=== PATIENT | female | born 1945 | race Caucasian/White ===

== ENCOUNTER 2017-11-16 09:18 | Outpatient (CLI) | payer MEDICARE, BC ==
--- NOTE | 2017-11-16 11:25 | RAD ---
UPPER GI: History: Hiatal hernia, reflux, angiopathic pulmonary fibrosis. FINDINGS: Swallowing was grossly normal. There is unobstructed flow of contrast through the esophagus into the stomach, duodenum and proximal duodenum. A large hiatal hernia is present. No mass or diverticulum is identified. Tertiary contractions are seen in the esophagus. IMPRESSION: 1. Large hiatal hernia. 2. Presbyesophagus. POS: [facility]
== END 2017-11-16 09:19 | disposition home or self-care (01) ==
LOC: RAD 09:18
PROVIDERS: ATTEND Internal Medicine Gastroenterology
DX: K21.9 Gastro-esophageal reflux disease without esophagitis (principal); F45.8 Other somatoform disorders; K44.9 Diaphragmatic hernia without obstruction or gangrene; J84.10 Pulmonary fibrosis, unspecified; K22.8 Other specified diseases of esophagus
CPT/HCPCS: 74247

== ENCOUNTER 2018-02-07 10:46 | Day surgery (SDC) | payer MEDICARE, BC ==
[2018-02-06 17:58] VITALS: BMI 24.7
[2018-02-07] MEDS ORDERED: Midazolam HCl 2 mg/2 ml Vial ONE (13:12)
--- NOTE | 2018-02-07 14:29 | OP ---
DATE OF PROCEDURE: 02/07/2018 PROCEDURE: Esophagogastroduodenoscopy with biopsy. PREOPERATIVE DIAGNOSES: 1. Blood loss anemia. 2. Melena. 3. History of reflux and large hiatal hernia. 4. History of pulmonary fibrosis on OFEV. POSTOPERATIVE DIAGNOSES: 1. Examination to second portion of duodenum. 2. No evidence of active bleeding in the upper digestive tract. 3. Presbyesophagus esophagus. 4. Large hiatal hernia extending from 30 cm to 37 cm from the incisors. 5. Several superficial linear erosions in the hiatal hernia, biopsied. A small amount of heme was a ssociated with the erosions. 6. Grossly normal stomach. 7. Normal duodenum. 8. No evidence of gastric or duodenal ulcers. PROCEDURE IN DETAIL: Written informed consent was obtained. The patient was brought to the endoscop y suite. Total intravenous anesthesia was provided by Dr. Peter Cain and associates. The patient was placed in the left lateral decubitus position. A bite block was inserted into the mouth. A Pent ax video diagnostic gastroscope was introduced into the oral cavity and the esophagus was carefully i ntubated. The gastroscope was advanced under direct visualization to the second portion of the duode num. Endoscopic findings revealed presbyesophagus due to a large hiatal hernia which was measured at 30 cm to 37 cm from the incisors. Several superficial linear ulcers were noted along few folds in t he hiatal hernia. Biopsies were obtained. There was evidence of a small amount of heme staining ass ociated with erosions. The stomach was then entered and carefully examined. This included a retrofl exed view of the cardia and fundus which again demonstrated the large hiatal hernia. There was no ev idence of overt gastritis or gastric ulcer. The duodenum from the bulb to the second portion was the n inspected and appeared grossly normal. No ulcer was seen. The stomach was then decompressed as th e endoscope was removed from the patient. She was transferred to the day stay surgery area for post- procedure monitoring. There were no immediate complications. RECOMMENDATIONS: 1. Await biopsy results. 2. Ask the patient to call me in 1 week for biopsy results. 3. Continue pantoprazole 40 mg daily. 4. Continue to hold aspirin for now. 5. We will speak to the patient about performing a small bowel capsule endoscopy in the next 7-10 da ys to evaluate for any source of bleeding in the small intestine. 6. Follow up with me after completion of the capsule endoscopy.
== END 2018-02-07 15:10 | disposition home or self-care (01) ==
LOC: SDC 10:46
PROVIDERS: ATTEND Internal Medicine Gastroenterology
PROC: 0DB68ZX Excision of Stomach, Via Natural or Artificial Opening Endoscopic, Diagnostic (ICD-10-PCS; principal; 2018-02-07)
DX: K44.9 Diaphragmatic hernia without obstruction or gangrene (principal); K22.8 Other specified diseases of esophagus; D50.0 Iron deficiency anemia secondary to blood loss (chronic); K21.9 Gastro-esophageal reflux disease without esophagitis; Z88.1 Allergy status to other antibiotic agents; Z91.041 Radiographic dye allergy status; Z91.040 Latex allergy status; Z98.890 Other specified postprocedural states
CPT/HCPCS: 88305; J2250

== ENCOUNTER 2018-03-07 14:14 | Outpatient (CLI) | payer MEDICARE, BC ==
--- NOTE | 2018-03-09 16:21 | PFT ---
PATIENT HISTORY: HEIGHT: 62 IN WEIGHT: 143 SMOKER: NO HOW LONG: PACKS PER DAY PRODUCTIVE COUGH: LUNG DISEASE: PHYSICIAN INTERPRETATION FINAL REPORT: Product Blending Supervisor comments patient and good effort and cooperation FVC 1.58 (58%), FEV1 1.37 (72%), FEV1/FVC 0.87. TLC 2.15 (46%), RV 0.71 (36%). Diffusion 5.19 (30%). There is a symmetric reduction to the FEV1 and the FVC, suggestive of a restrictive profile. Total lung capacity and residual volume are reduced, confirming the volume restriction. Diffusion capacity is a severely impaired. IMPRESSION: These pulmonary function studies are most consistent with moderately severe restrictive lung disease with severe reduction in gas exchange. Product Blending Supervisor: GABE Wire Twister: GABE ALFARO
== END 2018-03-07 14:15 | disposition home or self-care (01) ==
LOC: CP 14:14
PROVIDERS: ATTEND Internal Medicine Critical Care Medicine
DX: J84.112 Idiopathic pulmonary fibrosis (principal); J84.9 Interstitial pulmonary disease, unspecified
CPT/HCPCS: 94010; 94727; 94729

== ENCOUNTER 2018-03-21 15:35 | Outpatient (CLI) | payer MEDICARE, BC | END 2018-03-21 15:36 | disposition home or self-care (01) | LOC: BICMAMMO 15:35 | PROVIDERS: ATTEND Internal Medicine | DX: Z12.31 Encounter for screening mammogram for malignant neoplasm of breast (principal) | CPT/HCPCS: 77063; 77067 ==

== ENCOUNTER 2018-04-26 08:58 | Outpatient (CLI) | payer MEDICARE, BC ==
--- NOTE | 2018-04-27 13:04 | PFT ---
PATIENT HISTORY: HEIGHT: 62 IN WEIGHT: 137 SMOKER: HOW LONG: PACKS PER DAY PRODUCTIVE COUGH: LUNG DISEASE: PHYSICIAN INTERPRETATION FINAL REPORT: Sheet Metal Duct Installer Helper comments patient and good effort and cooperation PFT data: FVC 1.73 (63%), FEV1 1.39 (73%), FEV1/FVC 0.81. TLC 2.02 (43%), FRC .88 (32%), RV 0.71 (36%). Diffusion 1.89 (11%). There is a reduction, there is asymmetric reduction to both the FEV1 and the FVC , suggestive of a restrictive profile. Volume restriction was confirmed with the reduced lung volumes. Diffusion capacity is severely impaired. IMPRESSION: Overall, these pulmonary function studies are consistent with moderate restrictive lung disease with a severe reduction in gas exchange. This is consistent with the interstitial lung disease suspected on the reason for these studies. Sheet Metal Duct Installer Helper: GABE Job Estimator: GABE ALFARO
== END 2018-04-26 08:59 | disposition home or self-care (01) ==
LOC: CP 08:58
PROVIDERS: ATTEND Internal Medicine Critical Care Medicine
DX: J84.9 Interstitial pulmonary disease, unspecified (principal)
CPT/HCPCS: 94010; 94727; 94729

== ENCOUNTER 2018-05-10 12:18 | Outpatient (CLI) | payer MEDICARE, BC | END 2018-05-10 12:19 | disposition home or self-care (01) | LOC: BICRAD 12:18 | PROVIDERS: ATTEND Internal Medicine | DX: M54.5 Low back pain (principal); M47.896 Other spondylosis, lumbar region; M47.894 Other spondylosis, thoracic region | CPT/HCPCS: 72072; 72100 ==

== ENCOUNTER 2018-05-18 14:02 | Observation (INO) | payer MEDICARE, BC ==
[2018-05-18 14:44] LABS: #Basophils 0.1 thou/uL (0.0-0.2); #Eosinphils 0.3 thou/uL (0.0-0.7); #Lymphocytes 1.4 thou/uL (1.20-3.40); #Monocytes 0.5 thou/uL (0.11-0.59); %Basophils 1.1 % (0.0-1.0); %Eosinophils 3.7 % (0.0-10.0); %Lymphocytes 14.6 % (21.0-51.0); %Monocytes 5.8 % (0.0-10.0); %Neutrophils 74.8 % (42.0-75.0); Anisocytosis SLIGHT = 6-15 cells (100X) (0-5/hpf); Hypochromia SLIGHT = 6-15 cells (100X) (0-5/hpf); Large Platelets SLIGHT; MDiff Complete? YES; Mean Corpuscular Volume 74.4 fL (78.0-98.0); Mean Platelet Volume 6.3 fL (7.4-10.4); Microcytosis SLIGHT = 6-15 cells (100X) (0-5/hpf); PLT Morphology Comment Appears Adequate; Platelet Count 342 thou/uL (130-400); Red Blood Cell (RBC) Count 4.35 mill/uL (4.20-5.40); White Blood Cell (WBC) Count 9.3 thou/uL (4.8-10.8)
[2018-05-18 14:54] LABS: ALT (SGPT) 16 U/L (8-55); AST (SGOT) 25 U/L (5-34); Albumin 3.4 g/dL (3.4-4.8); Alkaline Phosphatase 108 U/L (40-150); Anion Gap 13 mmol/L (10-20); BUN (Urea Nitrogen) 15 mg/dL (9.8-20.1); Bilirubin, Total 0.3 mg/dL (0.2-1.2); CK (CPK) 78 U/L (29-168); CKMB 0.9 ng/mL (0-6.6); Calc. Creatinine Clearance 0 mL/min (70-130); Calcium 9.4 mg/dL (7.8-10.44); Carbon Dioxide 24 mmol/L (23-31); Chloride 104 mmol/L (98-107); Estimated GFR-MDRD Greater than 90; Globulin 3.4 g/dL (2.4-3.5); Glucose 106 mg/dL (83-110); Lipase 6 U/L (8-78); Potassium 4.1 mmol/L (3.5-5.1); Protein, Total 6.8 g/dL (6.0-8.3); Sodium 137 mmol/L (136-145); Troponin I Less than 0.010 ng/mL (< 0.028)
--- NOTE | 2018-05-18 15:00 | RAD ---
RADIOGRAPH OF CHEST SINGLE VIEW: Comparison: 10-03-16 History: Chest pain. FINDINGS: There remains diffuse interstitial prominence of the lungs bilaterally. There is slight blunting of e ach lateral costophrenic sulcus. Cardiomediastinal silhouette is prominent, similar appearing. No add itional significant interval change. IMPRESSION: Redemonstration of diffuse interstitial opacities throughout each lung which may be on the basis of c hronic interstitial lung process. Superimposed acute entities, including edema, are not excluded. Cli nical correlation. Imaging follow up may be obtained as necessary. POS: [facility]
--- NOTE | 2018-05-18 15:56 | CT ---
CT HEAD NONCONTRAST: History: Headache. Paresthesia. Comparison: 09-13-15 FINDINGS: There is no evidence of acute intracranial hemorrhage or infarct. Ventricles appear normal in size, s hape, and position. There is no chronic ischemic small vessel disease within the periventricular whit e matter of each cerebral hemisphere. No mass effect or shift of midline structures. IMPRESSION: Chronic type findings are stable. No acute intracranial abnormalities are demonstrated on noncontrast CT head. POS: [facility]
[2018-05-18] MEDS ORDERED: Ondansetron ODT 4 MG TAB PO PRN (19:03)
[2018-05-18] MEDS ORDERED: cloNIDine 0.1 MG TAB PO PRN (19:03)
[2018-05-18] MEDS ORDERED: hydrALAZINE 20 MG/ML VIAL SLOW IVP PRN (19:03)
[2018-05-18] MEDS ORDERED: Acetaminophen 500 MG TAB PO PRN (19:03)
[2018-05-18] MEDS ORDERED: Ondansetron HCl/PF 4 MG/2 ML Vial IVP PRN (19:03)
[2018-05-18 19:12] VITALS: BMI 25.5
[2018-05-18] MEDS ORDERED: Temazepam 15 MG CAP PO SCH (21:00)
[2018-05-18] MEDS ORDERED: Simvastatin 5 MG TAB PO SCH (21:00)
[2018-05-18] MEDS ORDERED: Ipratropium Bromide 0.06% Nasal Inhaler 15ml EA NARE SCH (21:00)
[2018-05-18] MEDS: Famotidine 20 MG TAB PO SCH (21:15)
[2018-05-18] MEDS: Lactinex Tablet PO SCH (21:17)
--- NOTE | 2018-05-18 23:15 | ULT ---
CAROTID DOPPLER: 05/18/18 Ultrasound and doppler studies performed in the extracranial carotid arteries. Color doppler with spe ctral analysis and velocity recordings obtained. INDICATIONS: TIA. Ultrasound images show mild plaque bilaterally. The velocity recordings are within normal range measu ring up to 79 cm/s systolic in both internal carotid arteries. Vertebral arteries show antegrade flow . Incidentally noted are prominent cervical lymph nodes. IMPRESSION: 1. Mild echogenic plaque. 2. No evidence of significant stenosis identified in either internal carotid artery. 3. Evidence of cervical adenopathy. Recommend clinical correlation. Consider CT neck as indicate d. POS: [facility]
[2018-05-18] MEDS ORDERED: Montelukast Sodium 10 mg Tablet PO SCH (23:45)
--- NOTE | 2018-05-19 01:49 | HP ---
DATE OF ADMISSION: 05/18/2018 PRIMARY CARE PROVIDER: Erika Estrada MD CHIEF COMPLAINT: Numbness of the right hand and right lower extremity. HISTORY OF PRESENT ILLNESS: This is a 72-year-old female, who presented to [place] complaining of paresthesias and numbness of the right hand, as well as right fo ot and right calf region. The patient states over the last 48 hours, she noticed tingling in the rig ht jaw and chin area intermittently. The patient states she had been cleaning her house after a rece nt visit from her son, at which point, the symptoms began while she was changing bed linens. The pat ient denied any unilateral weakness, difficulty with speech, visual disturbance, difficulty speaking, or swallowing. The patient has denied any recent trauma, injury, headache, fever, or new medication s. The patient does state she was placed on Singulair in the last several months, but no other vega e to her chronic medication regimen. The patient does admit to taking aspirin 81 mg daily. The arabella ent states she is right-hand dominant. Denies any recent travel history, submersion, high altitude e xposure, or family members with similar symptoms. The patient does relate a significant history of i diopathic pulmonary fibrosis followed by Pulmonology Service. The patient does state that her mother had complications and succumbed to a cerebral aneurysm at age 54. In the emergency room, the patien t underwent general evaluation including CT imaging of the brain showing no acute intracranial proces s. Metabolic screening showed no acute process other than a chronic microcytic anemia. The patient received aspirin 324 mg and was referred to the Hospitalist Service for evaluation. PAST MEDICAL HISTORY: 1. Hypothyroidism. 2. Gastroesophageal reflux disease. 3. Idiopathic pulmonary fibrosis. 4. Nonalcoholic fatty liver disease. 5. History of hiatal hernia. 6. Degenerative joint disease. 7. Right rotator cuff tear. PAST SURGICAL HISTORY: 1. Status post appendectomy. 2. Status post hysterectomy. 3. Status post carpal tunnel release. 4. Status post endoscopy. 5. Status post left thoracoscopy for wedge biopsy resection. CURRENT MEDICATIONS: 1. Vitamin C 500 mg p.o. daily. 2. Enteric-coated aspirin 81 mg, 1 tab p.o. daily. 3. Vitamin C, E, and zinc 1 capsule p.o. daily. 4. Calcium carbonate 1 tablet p.o. daily. 5. Lasix 20 mg p.o. q.a.m. 6. Ipratropium bromide 2 sprays in each naris b.i.d. 7. Iron 28 mg half a tab p.o. daily. 8. Lactobacillus 1 capsule p.o. b.i.d. 9. Levothyroxine 50 mcg p.o. daily. 10. Toprol-XL 50 mg p.o. daily. 11. OFEV 100 mg p.o. b.i.d. 12. Protonix 40 mg p.o. daily. 13. Livalo 1 mg half a tab p.o. at bedtime. 14. Restoril 15 mg p.o. at bedtime. 15. Coenzyme Q10 100 mg p.o. daily. ALLERGIES: ZITHROMAX, IODINE, LATEX. FAMILY HISTORY: Mother of complications of cerebral aneurysm. Father of complications of congestive heart failure in his 70s. Brother of prostate cancer. SOCIAL HISTORY: No current alcohol, tobacco, or illicit drug use. Retired. Functional of all activ ities of daily living. Resides in [place], [place]. REVIEW OF SYSTEMS: The following complete review of systems was negative, unless otherwise mentioned in the HPI or below: Constitutional: Weight loss or gain, abil ity to conduct usual activities. Skin: Rash, itching. Eyes: Double vision, pain. ENT/Mouth: Nos e bleeding, neck stiffness, pain, tenderness. Cardiovascular: Palpitations, dyspnea on exertion, or thopnea. Respiratory: Shortness of breath, wheezing, cough, hemoptysis, fever, or night sweats. Ga strointestinal: Poor appetite, abdominal pain, heartburn, nausea, vomiting, constipation, or diarrhea. Genitourinary: Urgency, frequency, dysuria, nocturia. Musculoskeletal: Pain, swelling. Neurologic/Psychiatric: Anxiety, depression. Allergy/Immunologi c: Skin rash, bleeding tendency. PHYSICAL EXAMINATION: VITAL SIGNS: Currently, blood pressure 146/70, pulse 88, respiratory rate 22, temperature 97.8 degre es Fahrenheit, O2 saturation 92% on room air. GENERAL APPEARANCE: This is a 72-year-old female, alert and oriented x3, pleasant, convers ant, in no acute distress. HEENT: Pupils are equal, round, and reactive to light and accommodation. Extraocular muscles are in tact. No scleral icterus. No conjunctival injection. Nares patent. OP is clear. Teeth in good re pair. NECK: Supple. No cervical adenopathy, no thyromegaly, no carotid bruits, no JVD appreciated. Cervi clovis spine with full active and passive range of motion. No meningeal signs appreciated. CHEST: Coarse breath sounds in bilateral lung torres. CARDIOVASCULAR: S1, S2 without noted murmur, rub, or gallop. ABDOMEN: Rounded, soft, nontender, nondistended. Bowel sounds are positive in all four quadrants. No hepatosplenomegaly, no abdominal bruits. No rebound or guarding appreciated. EXTREMITIES: Warm and dry with fair turgor. No clubbing, cyanosis, or asymmetric edema appreciated. Pulses are palpable distally at the dorsalis pedis, posterior tibial, and popliteal arteries bilate rally. Capillary refill is less than 2 seconds. NEUROLOGIC: Cranial nerves II-XII are grossly intact. No focal or lateralizing signs appreciated. Right-hand dominant. PERTINENT LABORATORY AND X-RAY FINDINGS: Complete metabolic profile within normal limits. CBC showe d a white blood cell count of 9.3, hemoglobin 10, hematocrit 32, MCV 74, platelet count 342 with norm al differential. Portable chest x-ray dated 05/18/2018 showed diffuse interstitial opacities consist ent with pulmonary fibrosis. CT of the brain without contrast dated 05/18/2018 showed chronic change s without acute process. EKG dated 05/18/2018 by my interpretation shows sinus mechanism with heart rates in the 80s. Attenuated R-waves noted in the precordial leads. Normal axis. T-wave inversion in leads II and F. ASSESSMENT AND PLAN: 1. Transient ischemic attack. The patient will be observed on the Stroke Unit. We will proceed wit h MRI imaging of the brain to further delineate cerebral anatomy and rule out focal area of infarct. No current deficit noted on clinical exam. Check carotid Doppler study and continue aspirin 81 mg d aily. Check fasting lipid profile in the a.m. 2. Hypertension. Resume metoprolol XL 50 mg daily. Continue serial blood pressure monitoring. 3. Idiopathic pulmonary fibrosis. Continue general pulmonary supportive measures. No oxygen requir ement currently. 4. Hypothyroidism. Resume levothyroxine 50 mcg p.o. daily. 5. Hyperlipidemia. Check fasting lipid profile in the a.m. Continue Livalo daily. 6. Chronic microcytic anemia. We will continue iron replacement. No current evidence to suggest ac [place] blood loss. Repeat CBC in the a.m. 7. Prophylaxis. Sequential compression devices while in bed. Pepcid 20 mg p.o. b.i.d. 8. Code status is FULL. Surrogate medical decision maker is patient's son.
[2018-05-19 05:33] LABS: Anion Gap 9 mmol/L (10-20); BUN (Urea Nitrogen) 10 mg/dL (9.8-20.1); Calc. Creatinine Clearance 88 mL/min (70-130); Calcium 9.2 mg/dL (7.8-10.44); Carbon Dioxide 28 mmol/L (23-31); Cardiac Risk 3.2 (Less than 4.5); Chloride 104 mmol/L (98-107); Cholesterol 108 mg/dl (< 200 Desired); Estimated GFR-MDRD Greater than 90; Glucose 93 mg/dL (83-110); HDL Cholesterol 34 mg/dL (>60 Neg Risk); Iron 25 ug/dL (50-170); LDL Cholesterol, Calculated 52 mg/dL; Potassium 4.3 mmol/L (3.5-5.1); Sodium 137 mmol/L (136-145); Triglycerides 109 mg/dL (Less than 150)
[2018-05-19] MEDS ORDERED: Levothyroxine Sodium 50 MCG TAB PO SCH (06:00)
[2018-05-19 06:07] LABS: Band 4 % (5-11); Eosinophils 2 % (0-10); Hemoglobin 10.1 g/dL (12.0-16.0); Lymphocytes 13 % (21-51); MDiff Complete? YES; Mean Corpuscular HGB CONC 31.5 g/dL (32.0-36.0); Mean Corpuscular Hemoglobin 24.5 pg (27.0-31.0); Mean Corpuscular Volume 77.7 fL (78.0-98.0); Monocytes 5 % (0-10); Neutrophil 76 % (42-75); Platelet Count 331 thou/uL (130-400); RBC Distribution Width 16.4 % (11.5-14.5); Red Blood Cell (RBC) Count 4.14 mill/uL (4.20-5.40); White Blood Cell (WBC) Count 7.1 thou/uL (4.8-10.8)
[2018-05-19] MEDS: Lactinex Tablet PO SCH (08:40)
[2018-05-19] MEDS: Furosemide 20 MG TAB PO SCH ×2 (08:41→10:09)
[2018-05-19] MEDS ORDERED: Ubidecarenone 50 MG CAP PO SCH (09:00)
[2018-05-19] MEDS ORDERED: Aspirin 81 mg Enteric Coated Tablet PO SCH (09:00)
[2018-05-19] MEDS ORDERED: Vit A,C & E/Lutein/Minerals Tablet PO SCH (09:00)
[2018-05-19] MEDS ORDERED: Calcium Carbonate + Vit D 1 TAB PO SCH (09:00)
[2018-05-19] MEDS ORDERED: IRON HEME POLYP PO SCH (09:00)
[2018-05-19] MEDS ORDERED: NINTEDANIB ESYLATE 150 MG PO SCH (09:00)
[2018-05-19] MEDS ORDERED: Saccharomyces boulardii 250 MG CAP PO SCH (09:00)
[2018-05-19] MEDS ORDERED: Pantoprazole 40 MG GRANULES PACKET PO SCH (09:00)
[2018-05-19] MEDS ORDERED: Ascorbic Acid 500 mg Chewable Tablet PO SCH (09:00)
[2018-05-19] MEDS ORDERED: IRON POLYSACCH PO SCH (09:00)
[2018-05-19] MEDS: Famotidine 20 MG TAB PO SCH (10:10)
--- NOTE | 2018-05-19 10:50 | MRI ---
BRAIN MRI WITH AND WITHOUT CONTRAST: Date: 05/19/18 COMPARISON: 01/04/14. TECHNIQUE: Brain MRI is performed with and without intravenous Gadolinium administration. Multisequential, multi planar imaging is performed. FINDINGS: No hemorrhage on the axial gradient echo sequence. No parenchymal mass, mass effect, or midline shift. Age-appropriate atrophy. Cortical euceda-white asim er differentiation preserved. Ventricles and sulci are patent and symmetric. Central arterial flow-voids are maintained. Absent restricted diffusion. Stable FLAIR white matter hyperintensities due to chronic small vessel ischemic change. Mild mucosal thickening of the paranasal sinuses. Central arterial flow-voids are maintained. Absent restricted diffusion. Bilateral ocular lens implants are noted. Calvarium has a normal T1 marrow signal intensity. Midline brain parenchymal structures are unremarka ble. No pathologic enhancement of the brain parenchyma. IMPRESSION: 1. Absent restricted diffusion. No acute infarct. 2. Age-appropriate atrophy. 3. Chronic small vessel ischemic changes of white matter. POS: [facility]
[2018-05-19 12:00] VITALS: BP 137/77; TEMP 98.6
--- NOTE | 2018-05-19 13:05 | DIS ---
DISCHARGE DIAGNOSES: 1. Paresthesias, etiology unclear. 2. Hypertension, stable. 3. Idiopathic pulmonary fibrosis, chronic and stable. 4. Hypothyroidism, stable. 5. Hyperlipidemia. 6. Chronic microcytic anemia with iron supplementation. 7. Cervical adenopathy. CONSULTATIONS: None. PERTINENT LABORATORY AND X-RAY FINDINGS: Complete metabolic profile within normal limits. Troponin I negative x1. Total cholesterol 108, triglycerides 109, HDL 34, LDL 52. CBC showed a hemoglobin of 10, hematocrit 32, MCV ranging between 74-78. Portable chest x-ray dated 05/18/2018 showed diffuse interstitial opacities consistent with idiopathi c pulmonary fibrosis history. CT of the brain without contrast dated 05/18/2018 showed no acute intr acranial process. Chronic ischemic white matter changes noted. Carotid Doppler study dated 05/18/20 18 showed mild echogenic plaques without focal stenosis. Cervical adenopathy noted. MRI of the brai n dated 05/19/2018 showed no acute intracranial process. Chronic small vessel ischemic changes noted . HOSPITAL COURSE: The patient was observed and on the Stroke Unit after initially presenting with rig ht-sided paresthesias and concern for TIA/CVA. The patient underwent CT and MRI imaging of the brain showing no evidence of acute infarct. Screening metabolic survey was essentially unremarkable excep t for a chronic microcytic anemia. Telemetry monitoring showed a sinus mechanism without evidence of acute arrhythmia or dysrhythmia. The patient remained essentially clinically stable throughout the hospital course. The patient was noted with intermittent elevated temperature which resolved prior t o discharge. The patient was also noted with mild cervical adenopathy incidentally noted on carotid Doppler study with current recommendations for general observation and follow up with a primary care provider. Overall, patient did remain clinically stable, as stated previously. I have examined the patient at the time of discharge and discussed pertinent follow up instructions and neurologic testin g. The patient overall verbalizes understanding and agreement and ready for discharge on 05/19/2018. DISCHARGE MEDICATIONS: 1. Vitamin C 500 mg 1 tab p.o. daily. 2. Enteric-coated aspirin 81 mg 1 tab p.o. daily. 3. Vitamin C, E, zinc and copper 1 tablet p.o. daily. 4. Calcium carbonate 1 tablet p.o. daily. 5. Lasix 20 mg p.o. daily. 6. Ipratropium bromide 2 sprays in each naris b.i.d. 7. Feosol 28 mg half a tab p.o. daily. 8. Lactobacillus 1 capsule p.o. b.i.d. 9. Levothyroxine 50 mcg p.o. daily. 10. Metoprolol XL 50 mg p.o. daily. 11. Singulair 10 mg p.o. at bedtime. 12. Ofev 100 mg p.o. b.i.d. 13. Protonix 40 mg p.o. daily. 14. Livalo 0.5 mg p.o. at bedtime. 15. Florastor 250 mg p.o. b.i.d. 16. Restoril 15 mg p.o. at bedtime. 17. Coenzyme Q10 100 mg p.o. daily. FOLLOWUP: The patient will follow up with her primary care provider, Dr. Erika Estrada within 7 days o f discharge. The patient may follow up with Dr. Vipul Cueto with Pulmonology Service and to call tn s office for appointment time and date. CONDITION ON DISCHARGE: Stable. ACTIVITY: Ad arnie. DIET: Heart healthy. CODE STATUS: Full. DISPOSITION: Home on 05/19/2018.
[2018-05-19] MEDS ORDERED: Montelukast Sodium 10 mg Tablet PO SCH (21:00)
== END 2018-05-19 13:15 | disposition home or self-care (01) ==
LOC: SCSER 14:02 → 2SE 16:18
PROVIDERS: ADMIT Family Medicine; ATTEND Family Medicine
DX: R20.0 Anesthesia of skin (principal); E03.9 Hypothyroidism, unspecified; K21.9 Gastro-esophageal reflux disease without esophagitis; J84.112 Idiopathic pulmonary fibrosis; K76.0 Fatty (change of) liver, not elsewhere classified; M19.90 Unspecified osteoarthritis, unspecified site; R59.0 Localized enlarged lymph nodes; D50.9 Iron deficiency anemia, unspecified; Z79.82 Long term (current) use of aspirin; Z79.899 Other long term (current) drug therapy; Z91.041 Radiographic dye allergy status; Z91.040 Latex allergy status; Z88.8 Allergy status to other drugs, medicaments and biological substances
CPT/HCPCS: 70450; 70553; 71045; 80048; 80053; 80061; 82550; 82553; 83540; 83690; 84484; 85007; 85025; 85027; 93005; 93880; 99285; G0378; 36415

== ENCOUNTER 2018-07-09 18:24 | Emergency (ER) | payer MEDICARE, BC ==
[2018-07-09 19:11] LABS: Anion Gap 15 mmol/L (10-20); BUN (Urea Nitrogen) 15 mg/dL (9.8-20.1); CK (CPK) 30 U/L (29-168); Calc. Creatinine Clearance 0 mL/min (70-130); Calcium 9.8 mg/dL (7.8-10.44); Carbon Dioxide 26 mmol/L (23-31); Chloride 101 mmol/L (98-107); Estimated GFR-MDRD Greater than 90; Glucose 97 mg/dL (83-110); Potassium 4.3 mmol/L (3.5-5.1); Sodium 138 mmol/L (136-145)
[2018-07-09 19:13] LABS: CKMB 0.5 ng/mL (0-6.6); Troponin I Less than 0.010 ng/mL (< 0.028)
[2018-07-09 19:14] LABS: #Basophils 0.1 thou/uL (0.0-0.2); #Eosinphils 0.4 thou/uL (0.0-0.7); #Lymphocytes 1.9 thou/uL (1.20-3.40); #Monocytes 0.5 thou/uL (0.11-0.59); #Neutrophils 6.6 thou/uL (1.40-6.50); %Basophils 1.1 % (0.0-1.0); %Eosinophils 3.8 % (0.0-10.0); %Lymphocytes 20.1 % (21.0-51.0); %Monocytes 4.9 % (0.0-10.0); %Neutrophils 70.1 % (42.0-75.0); Anisocytosis SLIGHT = 6-15 cells (100X) (0-5/hpf); Hemoglobin 10.5 g/dL (12.0-16.0); Hypochromia SLIGHT = 6-15 cells (100X) (0-5/hpf); MDiff Complete? YES; Mean Corpuscular HGB CONC 31.6 g/dL (32.0-36.0); Mean Corpuscular Hemoglobin 23.3 pg (27.0-31.0); Mean Corpuscular Volume 73.7 fL (78.0-98.0); Mean Platelet Volume 6.6 fL (7.4-10.4); Microcytosis SLIGHT = 6-15 cells (100X) (0-5/hpf); Platelet Count 391 thou/uL (130-400); RBC Distribution Width 15.9 % (11.5-14.5); Red Blood Cell (RBC) Count 4.51 mill/uL (4.20-5.40); White Blood Cell (WBC) Count 9.4 thou/uL (4.8-10.8)
--- NOTE | 2018-07-09 20:37 | RAD ---
PORTABLE CHEST: HISTORY: Dyspnea. COMPARISON: 05/18/2018 FINDINGS: Diffuse interstitial thickening seen throughout both lungs, similar to the prior exam. Findings sugg est a chronic interstitial process. There is mild cardiomegaly. There is evidence of a diaphragmati c hernia. The lung findings appear stable when compared to the prior exam. POS: [facility]
[2018-07-09 21:20] LABS: ALT (SGPT) 16 U/L (8-55); AST (SGOT) 25 U/L (5-34); Albumin 3.4 g/dL (3.4-4.8); Alkaline Phosphatase 124 U/L (40-150); Bilirubin, Direct 0.1 mg/dL (0.1-0.3); Bilirubin, Total 0.3 mg/dL (0.2-1.2); Protein, Total 7.3 g/dL (6.0-8.3)
--- NOTE | 2018-07-12 14:59 | EKG ---
Test Reason : Blood Pressure : / mmHG Vent. Rate : 091 BPM Atrial Rate : 091 BPM P-R Int : 132 ms QRS Dur : 078 ms QT Int : 340 ms P-R-T Axes : 019 000 005 degrees QTc Int : 418 ms Normal sinus rhythm Possible Left atrial enlargement Possible Inferior infarct , age undetermined Anterior infarct , age undetermined Abnormal ECG Confirmed by HOMER JAMES DO ([id number]), editor & co founder VENU SINGLETON ([id number]) on 07/12/2018 2:59:02 PM Referred By: Confirmed By:HOMER JAMES DO
== END 2018-07-09 21:45 | disposition home or self-care (01) ==
LOC: SCSER 18:24
DX: I10 Essential (primary) hypertension (principal); K21.9 Gastro-esophageal reflux disease without esophagitis; E03.9 Hypothyroidism, unspecified; E78.5 Hyperlipidemia, unspecified; Z79.899 Other long term (current) drug therapy; Z79.82 Long term (current) use of aspirin
CPT/HCPCS: 71045; 80048; 80076; 82553; 84484; 85025; 93005; 94760

== ENCOUNTER 2018-08-30 10:45 | Outpatient (CLI) | payer MEDICARE, BC ==
--- NOTE | 2018-08-30 12:19 | RAD ---
LUMBAR SPINE SERIES FOUR VIEWS WITH FLEXION AND EXTENSION: History: Back pain. FINDINGS: The bones are diffusely demineralized. Vertebral bodies maintain normal height. There is marked disc narrowing at L2-3. There is a grade I spondylolisthesis of L5 on S1 with moderate degenerative facet changes of the lower spine. I do not see any change in the listhesis between the flexion and extensio n. IMPRESSION: Arthritic changes of the spine as described above. POS: [facility]
== END 2018-08-30 10:46 | disposition home or self-care (01) ==
LOC: TBSIIMAG 10:45
PROVIDERS: ATTEND Surgery
DX: M47.26 Other spondylosis with radiculopathy, lumbar region (principal)
CPT/HCPCS: 72110

== ENCOUNTER 2018-09-11 12:22 | Outpatient (CLI) | payer MEDICARE, BC ==
--- NOTE | 2018-09-11 15:23 | MRI ---
MRI OF THE CERVICAL SPINE WITHOUT CONTRAST 09/11/18 COMPARISON: None. HISTORY: Numbness and tingling in both hand and fingers. Cervical radiculopathy. TECHNIQUE: Multiplanar and multisequence MR images were obtained in a cervical spine without contrast. FINDINGS: Generalized disc desiccation is seen. The vertebral bodies demonstrate normal height without fracture or subluxation. The visualized cord demonstrates normal signal throughout. The craniocervical junction is unremarkabl e. The prevertebral and paraspinal soft tissues are unremarkable. C-3: Unremarkable. C3-4: A minimal disc osteophyte complex is seen. Moderate bilateral posterior facet arthrosis. C4-5: A moderate disc osteophyte complex is associated with a superimposed moderate central protrusio n. Mild bilateral posterior facet arthrosis. Moderate central canal stenosis. No significant neural f oraminal stenosis. C5-6: A moderate disc osteophyte complex is seen. No posterior facet arthrosis. Moderate to severe ce ntral canal stenosis. Moderate to severe bilateral neural foraminal stenosis. C6-7: A moderate disc osteophyte complex is seen. No posterior facet arthrosis. Moderate to severe ce ntral canal stenosis. Moderate to severe bilateral neural foraminal stenosis. C7-T1: Unremarkable. IMPRESSION: Degenerative changes of the cervical spine as above. POS: [facility]
== END 2018-09-11 12:23 | disposition home or self-care (01) ==
LOC: SCSMRI 12:22
PROVIDERS: ATTEND Surgery
DX: M47.22 Other spondylosis with radiculopathy, cervical region (principal); M54.2 Cervicalgia
CPT/HCPCS: 72141

== ENCOUNTER 2018-10-30 15:32 | Outpatient (CLI) | payer MEDICARE, BC ==
--- NOTE | 2018-10-30 17:15 | RAD ---
CHEST 2 VIEWS: HISTORY: Dyspnea. COMPARISON: Chest radiograph 07/09/2018. FINDINGS: Diffuse increased peripheral interstitial markings are similar to slightly worsened. This suggests p ulmonary fibrosis. There is an air fluid level to the left of midline in the mediastinum suggesting a large sliding hiatal hernia. IMPRESSION: 1. Findings suggesting pulmonary fibrosis. 2. Likely a large sliding hiatal hernia. POS: [facility]
== END 2018-10-30 15:33 | disposition home or self-care (01) ==
LOC: RAD 15:32
PROVIDERS: ATTEND Internal Medicine Critical Care Medicine
DX: R06.00 Dyspnea, unspecified (principal)
CPT/HCPCS: 71046

== ENCOUNTER 2018-12-11 12:49 | Inpatient (IN) | payer MEDICARE, BC ==
[2018-12-11 14:21] LABS: Bilirubin Negative (Negative); Blood, Urine Negative (Negative); Clarity CLEAR (Clear); Glucose, Urine (Dipstick) Negative (Negative); Leukocyte Trace (Negative); Nitrite Negative (Negative); Protein, Urine (Dipstick) Negative (Neg-Trace); Specific Gravity, Urine 1.007 (1.002-1.036); Urobilinogen 0.2 mg/dL (0.2-1.0); pH, Urine 6.5 (5.0-9.0)
[2018-12-11 14:27] LABS: Bacteria/HPF None Seen HPF (None Seen); Hyaline Casts/LPF 0-3 HYALINE CAST LPF (0-3 Hyaline); RBC/HPF 0-3 HPF (0-3); Squamous Epithelial 0-3 HPF (0-3); WBC/HPF 0-3 HPF (0-3)
--- NOTE | 2018-12-11 14:48 | CT ---
CT BRAIN NONCONTRAST: DATE: 12-11-18 TIME: 1:46 P.M. HISTORY: 73-year-old female status post near syncope. FINDINGS: There is no midline shift or any other mass effect. There is no evidence of acute intracranial hemor rhage, large cortical infarct, obstructive hydrocephalus, or extraaxial fluid collection. The calvar ium is intact. IMPRESSION: No acute intracranial findings. marlee POS: [facility]
--- NOTE | 2018-12-11 14:49 | RAD ---
CHEST ONE VIEW: Indication: Near syncopal episode at home. Comparison: 10-30-18 FINDINGS: The chronic interstitial prominence of bronchiectasis is stable. Large hiatal hernia is similar appea ring. No pleural effusion or pneumothorax is evident. Osseous structures are appearing. IMPRESSION: 1. Stable chronic lung changes. 2. Stable moderate hiatal hernia. 3. No definite acute abnormality. POS: [facility]
[2018-12-11 15:18] LABS: #Basophils 0.1 thou/uL (0.0-0.2); #Eosinphils 0.1 thou/uL (0.0-0.7); #Lymphocytes 0.9 thou/uL (1.20-3.40); #Monocytes 0.3 thou/uL (0.11-0.59); #Neutrophils 5.6 thou/uL (1.40-6.50); %Basophils 0.8 % (0.0-1.0); %Eosinophils 1.8 % (0.0-10.0); %Lymphocytes 13.2 % (21.0-51.0); %Monocytes 4.4 % (0.0-10.0); %Neutrophils 79.8 % (42.0-75.0); Hemoglobin 11.1 g/dL (12.0-16.0); Mean Corpuscular HGB CONC 30.7 g/dL (32.0-36.0); Mean Corpuscular Hemoglobin 25.3 pg (27.0-31.0); Mean Corpuscular Volume 82.6 fL (78.0-98.0); Mean Platelet Volume 7.8 fL (7.4-10.4); Platelet Count 346 thou/uL (130-400); RBC Distribution Width 15.8 % (11.5-14.5); Red Blood Cell (RBC) Count 4.37 mill/uL (4.20-5.40)
[2018-12-11 15:43] LABS: ALT (SGPT) 9 U/L (8-55); AST (SGOT) 21 U/L (5-34); Albumin 3.5 g/dL (3.4-4.8); Alkaline Phosphatase 79 U/L (40-150); Anion Gap 15 mmol/L (10-20); BUN (Urea Nitrogen) 11 mg/dL (9.8-20.1); Bilirubin, Total 0.2 mg/dL (0.2-1.2); Calc. Creatinine Clearance 0 mL/min (70-130); Calcium 9.7 mg/dL (7.8-10.44); Carbon Dioxide 22 mmol/L (23-31); Chloride 105 mmol/L (98-107); Estimated GFR-MDRD Greater than 90; Globulin 3.7 g/dL (2.4-3.5); Glucose 89 mg/dL (83-110); Potassium 4.3 mmol/L (3.5-5.1); Protein, Total 7.2 g/dL (6.0-8.3); Sodium 138 mmol/L (136-145)
[2018-12-11 18:41] LABS: CKMB 1.2 ng/mL (0-6.6)
[2018-12-11 21:56] LABS: CKMB 0.9 ng/mL (0-6.6)
[2018-12-12 02:24] LABS: CKMB 0.9 ng/mL (0-6.6)
[2018-12-12] MEDS ORDERED: Ondansetron PF 4 MG/2 ML Vial IVP PRN (07:35)
[2018-12-12] MEDS ORDERED: Bisacodyl 10 MG SUPP PR PRN (07:35)
[2018-12-12] MEDS ORDERED: Cepastat Lozenges 1 LOZ PO PRN (07:35)
[2018-12-12] MEDS ORDERED: Sodium Chloride 0.65% Nasal 44 ML BOT EA NARE PRN (07:35)
[2018-12-12] MEDS ORDERED: hydrALAZINE 20 MG/ML VIAL SLOW IVP PRN (07:35)
[2018-12-12] MEDS ORDERED: Diabetic Tussin 200 MG/10 ML UDCUP PO PRN (07:35)
[2018-12-12] MEDS ORDERED: Ondansetron ODT 4 MG TAB PO PRN (07:35)
[2018-12-12] MEDS ORDERED: Acetaminophen 325 MG TAB PO PRN (07:35)
[2018-12-12] MEDS ORDERED: Calcium Carbonate 500 MG ChewTAB PO PRN (07:35)
[2018-12-12] MEDS ORDERED: Senokot S 8.6-50 MG TAB PO PRN (07:35)
[2018-12-12] MEDS ORDERED: Eucerin (Mineral Oil/Petrolatum,White) 30 gm Jar TOP PRN (07:35)
[2018-12-12] MEDS ORDERED: Artificial Tears 18 DROP/0.9 ML EA EYE PRN (07:35)
[2018-12-12] MEDS ORDERED: Loperamide HCl 2 MG CAP PO PRN (07:35)
[2018-12-12] MEDS ORDERED: Loratadine 10 MG TAB PO PRN (07:35)
[2018-12-12 08:37] LABS: Cardiac Risk 2.6 (Less than 4.5)
[2018-12-12] MEDS ORDERED: Famotidine 20 MG TAB PO SCH (09:00)
[2018-12-12] MEDS: Aspirin Chewable 81 MG TAB PO SCH (10:37)
--- NOTE | 2018-12-12 11:20 | CON ---
DATE OF CONSULTATION: HISTORY OF PRESENT ILLNESS: A 73-year-old female, end-stage pulmonary fibrosis, sees Dr. Cueto. She presented to the ER with symptoms of near-syncope, lightheaded, impaired vision. She had a pulmonary function test done 04/26/2018, almost 8-10 months ago, which showed a diffusing capacity of only 11% because of severe pulmonary fibrosis. She is on low-flow O2 24 hours a day. She denies any chest pain, chills, sweats, hemoptysis, sputum is relatively clear. On most days, she can barely walk even 20 feet without getting markedly short of breath. I understand she is going to be moving to an independent living area in [place] in the next several weeks. Denies any palpitation, nausea, vomiting. PAST MEDICAL HISTORY: Pulmonary fibrosis, reflux, DJD, hypothyroidism. PREVIOUS SURGERIES: Appendix, hysterectomy, carpal tunnel, biopsy, thoracoscopy. HOME MEDICATIONS: Include 1. CQ-10. 2. . 3. Ofev 1 tablet twice a day. 4. Protonix 40. 5. Toprol-XL 50. 6. Singulair 10. 7. Synthroid 50. 8. Lasix 20. 9. Nose spray. 10. Aspirin. 11. Ascorbic acid. ALLERGIES: Z-URI, IODINE, AND LATEX. SOCIAL HISTORY: Unremarkable. No alcohol, tobacco abuse. FAMILY HISTORY: Unremarkable. REVIEW OF SYSTEMS: Otherwise 10-point negative. PHYSICAL EXAMINATION: VITAL SIGNS: Blood pressure is 156/78, sats are 95% on 2 L, respirations 18, temperature 97. CHEST: Extensive crackles bilateral. CARDIAC: Normal S1 and S2. No gallops. ABDOMEN: No masses. X-ray shows pulmonary fibrosis. White count 7000, H and H 11 and 36. Lytes are normal. Troponin is borderline elevated. CT brain shows normal findings. IMPRESSION: 1. Near-syncope, rule out orthostatic hypotension. 2. End-stage pulmonary fibrosis. 3. Major anxiety. PLAN: Continue present treatment. Notify Dr. Cueto, check blood pressure sitting and standing. Brief course of steroids while in the hospital. Consultation note, 70 minutes, 50% direct patient care. Job ID: [id number]
--- NOTE | 2018-12-12 12:41 | HP ---
PRIMARY CARE PHYSICIAN: Erika Estrada MD REASON FOR ADMISSION: Near syncope. HISTORY OF PRESENT ILLNESS: A 73-year-old female, who has underlying idiopathic pulmonary fibrosis, on home oxygen therapy, who was brought to emergency room for evaluation of near syncope. The patient reports that for last 2 to 3 days, she was having lot of stress. She normally lives at home, but she is planning to go to assisted living facility in other town, and for that reason, she was little bit stressed out. Yesterday morning, the patient was seated in the chair and she felt lightheaded as if she is going to pass out. She did not have any spinning sensation. She did not have any fall. She did not completely lose her consciousness. At that time, she did not have any palpitation or chest pain. She did not have any orthopnea, PND, or leg swelling. She denies any calf tenderness. The patient ambulates with a walker at home. She is using oxygen all the time. She denies any fever or chills. She denies any UTI symptoms. She denies any constipation, diarrhea, melena, or hematochezia. She denies any headache, focal motor or sensory symptoms. When she came to emergency room, at that time she was hemodynamically stable. She did not have any abnormal finding on routine blood test. Troponin was only in indeterminate range. Her electrocardiogram was unremarkable and she did not have any chest pain. In the emergency room, CT brain did not show any acute process and chest x-ray showed chronic pulmonary changes. The patient is being admitted for observation. REVIEW OF SYSTEMS: CONSTITUTIONAL: Negative for weight loss or gain, ability to conduct usual activities. SKIN: Negative for rash, itching. EYES: Negative for double vision, pain. ENT/MOUTH: Negative for nose bleeding, neck stiffness, pain, tenderness. CARDIOVASCULAR: Negative for palpitations, dyspnea on exertion, orthopnea. RESPIRATORY: Negative for shortness of breath, wheezing, cough, hemoptysis, fever or night sweats. GASTROINTESTINAL: Negative for poor appetite, abdominal pain, heartburn, nausea , vomiting, constipation, or diarrhea. GENITOURINARY: Negative for urgency, frequency, dysuria, nocturia. MUSCULOSKELETAL: Negative for pain, swelling. NEUROLOGIC/PSYCHIATRIC: Negative for anxiety, depression. ALLERGY/IMMUNOLOGIC: Negative for skin rash, bleeding tendency. Please see my HPI for pertinent positive and negative. All other review of systems reviewed and negative except as mentioned in HPI. PAST MEDICAL HISTORY: Idiopathic pulmonary fibrosis, gastroesophageal reflux disease, hypothyroidism, nonalcoholic fatty liver disease, hiatal hernia, and degenerative joint disease. PAST SURGICAL HISTORY: Right rotator cuff repair, appendicectomy, hysterectomy, carpal tunnel release, endoscopy, and left thoracoscopy with wedge biopsy of the lung. PAST PSYCHIATRY HISTORY: Anxiety and depression ALLERGIES: AZITHROMYCIN, IODINE, AND LATEX. CURRENT HOME MEDICATIONS: 1. Vitamin C 500 mg daily. 2. Aspirin 81 mg daily. 3. Multivitamin 1 tablet daily. 4. Calcium carbonate 1 tablet daily. 5. Lasix 20 mg p.o. daily. 6. Iron 28 mg p.o. daily. 7. Lactobacillus 1 capsule b.i.d. 8. Synthroid 50 mcg daily. 9. Toprol-XL 50 mg daily. 10. Ofev 100 mg p.o. b.i.d. 11. Protonix 40 mg p.o. daily. 12. Livalo 1 mg p.o. at bedtime. 13. Restoril 15 mg p.o. at bedtime p.r.n. 14. Coenzyme Q10 100 mg p.o. daily. FAMILY HISTORY: Mother from complication of cerebral aneurysm. Father from complication of congestive heart failure in his 70s. Brother of prostate cancer. SOCIAL HISTORY: The patient lives in [place] in [facility]. No history of tobacco, alcohol, or illicit drug abuse. She is able to ambulate with walker. She is able to do all routine activities of life by herself. She is using oxygen 24 /7. EMERGENCY ROOM COURSE: The patient is given IV fluid and 1 liter NS. PHYSICAL EXAMINATION: VITAL SIGNS: On arrival, blood pressure 147/79, pulse 97, respiratory rate 22, temperature 97.8, saturation 96% on 2 L oxygen, and weight 52.2 kg. GENERAL: The patient is currently alert and awake. No obvious acute distress. HEENT: Head, normocephalic and atraumatic. Eyes, pupils round and reactive to light. Extraocular muscle intact. ENT, oropharynx within normal limits. Moist mucous membranes. No oral lesion. No pharyngeal erythema. No exudate. NECK: Supple. No JVD. No thyromegaly. No carotid bruit. LUNGS: Bilateral scattered Velcro type of rales noted. No wheeze. No accessory muscles of respiration. CARDIAC: S1 and S2 regular. No murmur. No gallop. No rub. ABDOMEN: Soft. Bowel sounds present. Nontender. Nondistended. No organomegaly. No mass. No suprapubic tenderness. BACK: Unremarkable. No CVA tenderness. EXTREMITIES: Upper extremities, passive movement of all joints are normal. Lower extremities, no edema. Good distal pulsation. SKIN: No skin rash. HEMATOLOGICAL SYSTEM: No lymphadenopathy. PSYCHIATRIC: Normal affect. NEUROLOGIC: Nonfocal examination. SIGNIFICANT LABORATORY DATA: EKG is showing sinus tachycardia and left atrial enlargement. Chest x-ray is showing chronic pulmonary fibrosis. CBC: WBC 7.0, hemoglobin 11.1, and platelet 346. BMP: Sodium 138, potassium 4.3, chloride 105, carbon dioxide 25, BUN 11, creatinine 0.60, and calcium 9.7. LFT: AST 21, ALT 9, alkaline phosphatase 79, and albumin 3.5. CK-MB 1.2. Troponin 0.080, then 0.068, and then 0.078. LDL 48. Urinalysis normal. CT brain based on my review, no acute intracranial process. ASSESSMENT AND PLAN: 1. Dizziness. We will rule out orthostatic vitals, suspecting pulmonary hypertension from interstitial lung disease. We will check echocardiography. She has elevated troponin and that is why we will obtain echocardiography as well as we will monitor on telemetry floor. Orthostatic vitals will be checked and we will monitor on telemetry floor. 2. Idiopathic pulmonary fibrosis. The patient is requesting Pulmonary consultation. We will put Pulmonary consultation. The patient will continue Ofev 100 mg p.o. b.i.d. Further management, we will defer to tool sharpener. 3. Hypothyroidism. We will continue the patient's home dose of levothyroxine. 4. Hypertension. We will continue the patient's Toprol-XL as per home dosage. 5. Gastroesophageal reflux disease. We will continue Protonix/Pepcid 20 mg p.o. b.i.d. 6. Protein-calorie malnutrition. The patient will be given nutritional supplement. 7. Deep vein thrombosis prophylaxis not needed because we are expecting discharge in 24 hours. 8. Gastrointestinal prophylaxis, Protonix 40 mg p.o. daily. CODE STATUS: The patient is a DNR. This was confirmed with the patient. She does not want any kind of resuscitation or intubation in case of cardiopulmonary arrest. Based on her request, we are changing the code status to DNR. Job ID: [id number] MTDD
[2018-12-12] MEDS ORDERED: Gabapentin 100 MG CAP PO SCH (15:00)
[2018-12-12] MEDS ORDERED: Ubidecarenone 50 MG CAP PO SCH (15:00)
[2018-12-12 16:23] LABS: Bilirubin Negative (Negative); Blood, Urine Trace (Negative); Clarity CLEAR (Clear); Glucose, Urine (Dipstick) Negative (Negative); Leukocyte Negative (Negative); Nitrite Negative (Negative); Protein, Urine (Dipstick) Trace mg/dL (Neg-Trace); Specific Gravity, Urine 1.016 (1.002-1.036); Urobilinogen 0.2 mg/dL (0.2-1.0)
[2018-12-12 16:25] LABS: Bacteria/HPF None Seen HPF (None Seen); Hyaline Casts/LPF 0-3 HYALINE CAST LPF (0-3 Hyaline); Squamous Epithelial 0-3 HPF (0-3); WBC/HPF 0-3 HPF (0-3)
[2018-12-12] MEDS ORDERED: ALPRAZolam 0.25 MG TAB PO PRN (16:26)
[2018-12-12] MEDS: Mometasone/Formoterol 120 PUFF INHALER INH SCH (18:30)
[2018-12-12] MEDS: Saccharomyces boulardii 250 MG CAP PO SCH ×2 (20:23→21:06)
[2018-12-12] MEDS: Gabapentin 100 MG CAP PO SCH ×3 (20:23→22:02)
[2018-12-12] MEDS: Temazepam 15 MG CAP PO SCH (20:23)
[2018-12-12] MEDS: Montelukast Sodium 10 mg Tablet PO SCH ×2 (20:23→21:09)
[2018-12-12] MEDS: Simvastatin 5 MG TAB PO SCH (21:30)
[2018-12-13] MEDS: Levothyroxine Sodium 50 MCG TAB PO SCH (05:19)
[2018-12-13] MEDS: Mometasone/Formoterol 120 PUFF INHALER INH SCH ×2 (06:40→18:50)
[2018-12-13 06:51] LABS: Anion Gap 15 mmol/L (10-20); BUN (Urea Nitrogen) 8 mg/dL (9.8-20.1); Calc. Creatinine Clearance 74 mL/min (70-130); Calcium 10.5 mg/dL (7.8-10.44); Carbon Dioxide 25 mmol/L (23-31); Chloride 99 mmol/L (98-107); Estimated GFR-MDRD Greater than 90; Glucose 108 mg/dL (83-110); Potassium 4.5 mmol/L (3.5-5.1); Sodium 134 mmol/L (136-145)
[2018-12-13 06:54] LABS: #Lymphocytes 0.8 thou/uL (1.20-3.40); #Monocytes 0.3 thou/uL (0.11-0.59); #Neutrophils 3.8 thou/uL (1.40-6.50); %Basophils 0.4 % (0.0-1.0); %Eosinophils 0.1 % (0.0-10.0); %Lymphocytes 16.8 % (21.0-51.0); %Monocytes 5.7 % (0.0-10.0); Hemoglobin 11.8 g/dL (12.0-16.0); Mean Corpuscular Hemoglobin 24.4 pg (27.0-31.0); Mean Corpuscular Volume 81.3 fL (78.0-98.0); Mean Platelet Volume 7.8 fL (7.4-10.4); Platelet Count 390 thou/uL (130-400); RBC Distribution Width 15.6 % (11.5-14.5); Red Blood Cell (RBC) Count 4.82 mill/uL (4.20-5.40); White Blood Cell (WBC) Count 4.9 thou/uL (4.8-10.8)
[2018-12-13] MEDS ORDERED: Sodium Chloride 0.9% 10 ML ONE (08:32)
[2018-12-13] MEDS ORDERED: Furosemide 20 MG TAB PO SCH (09:00)
[2018-12-13] MEDS: Gabapentin 100 MG CAP PO SCH ×2 (10:21→20:03)
[2018-12-13] MEDS: Saccharomyces boulardii 250 MG CAP PO SCH ×2 (10:22→20:05)
[2018-12-13] MEDS: Pantoprazole 40 MG GRANULES PACKET PO SCH (10:23)
[2018-12-13] MEDS: Ascorbic Acid 500 mg Chewable Tablet PO SCH (10:24)
[2018-12-13] MEDS: Ubidecarenone 50 MG CAP PO SCH (10:24)
[2018-12-13] MEDS: Vit A,C & E/Lutein/Minerals Tablet PO SCH (10:25)
[2018-12-13] MEDS: Calcium Carbonate + Vit D 1 TAB PO SCH (10:25)
--- NOTE | 2018-12-13 10:25 | PDOC.PN ---
- Subjective Encounter Start Date: 12/13/18 Encounter Start Time: 07:15 -: old records requested/rev this morning pt still c/o dizziness, yesterday and night she had episodes of vomiting after food, she is very weak - Objective Resuscitation Status - Order Detail: 12/12/18 12:07 Resuscitation Status Routine Resuscitation Status: DNAR: NO Resuscitation Discussed with: discussed with pt MAR Reviewed: Yes Vital Signs & Weight: Vital Signs (12 hours) Temp Pulse Resp BP BP Pulse Ox 12/13/18 07:56 98.4 F 83 16 135/68 135/68 98 12/13/18 06:43 97 12/13/18 06:40 85 16 97 12/13/18 04:00 98.1 F 73 16 119/67 99 Weight Weight 114 lb 1.6 oz I&O: 12/12/18 12/13/18 12/14/18 06:59 06:59 06:59 Intake Total 1140 Output Total 2850 Balance -1710 Result Diagrams: 12/13/18 05:28 12/13/18 05:28 EKG Reviewed by me: Yes (nsr) Phys Exam - Physical Examination Constitutional: NAD HEENT: PERRLA, moist MMs, sclera anicteric Neck: no JVD, supple Respiratory: no wheezing, no rhonchi bilateral rales Cardiovascular: RRR, no significant murmur, no rub Gastrointestinal: soft, non-tender, no distention, positive bowel sounds Musculoskeletal: no edema, pulses present muscle wasting noted Neurological: non-focal, normal sensation, moves all 4 limbs Lymphatic: no nodes Psychiatric: normal affect, A&O x 3 Skin: no rash, normal turgor Dx/Plan (1) Dizziness Code(s): R42 - DIZZINESS AND GIDDINESS Status: Acute (2) Anxiety and depression Code(s): F41.9 - ANXIETY DISORDER, UNSPECIFIED; F32.9 - MAJOR DEPRESSIVE DISORDER, SINGLE EPISODE, UNSPECIFIED Status: Chronic (3) Dyslipidemia Code(s): E78.5 - HYPERLIPIDEMIA, UNSPECIFIED Status: Chronic (4) GERD (gastroesophageal reflux disease) Code(s): K21.9 - GASTRO-ESOPHAGEAL REFLUX DISEASE WITHOUT ESOPHAGITIS Status: Chronic (5) Hypothyroidism Code(s): E03.9 - HYPOTHYROIDISM, UNSPECIFIED Status: Chronic (6) Protein-calorie malnutrition, moderate Code(s): E44.0 - MODERATE PROTEIN-CALORIE MALNUTRITION Status: Chronic (7) Pulmonary fibrosis Code(s): J84.10 - PULMONARY FIBROSIS, UNSPECIFIED Status: Chronic - Plan cont current plan of care, plan discussed w/ family * medication reviewed as below * symptomatic treatment * will start today gentle IVF * echo pending result * pulmonary following * will observe today in hospital. Review of Systems - Review of Systems Constitutional: weakness. negative: fever, chills, sweats, malaise, other Eyes: negative: Pain, Vision Change, Conjunctivae Inflammation, Eyelid Inflammation, Redness, Other ENT: negative: Ear Pain, Ear Discharge, Nose Pain, Nose Discharge, Nose Congestion, Mouth Pain, Mouth Swelling, Throat Pain, Throat Swelling, Other Respiratory: Cough, Shortness of Breath, SOB with Excertion. negative: Dry, Hemoptysis, Pleuritic Pain, Sputum, Wheezing Cardiovascular: light headedness. negative: chest pain, palpitations, orthopnea , paroxysmal nocturnal dyspnea, edema, other Gastrointestinal: negative: Nausea, Vomiting, Abdominal Pain, Diarrhea, Constipation, Melena, Hematochezia, Other Genitourinary: negative: Dysuria, Frequency, Incontinence, Hematuria, Retention , Other Musculoskeletal: negative: Neck Pain, Shoulder Pain, Arm Pain, Back Pain, Hand Pain, Leg Pain, Foot Pain, Other Skin: negative: Rash, Lesions, Bandar, Bruising, Other - Medications/Allergies Allergies/Adverse Reactions: Allergies Allergy/AdvReac Type Severity Reaction Status Date / Time azithromycin [From Zithromax] Allergy Verified 05/18/18 19:23 iodine Allergy Verified 05/18/18 19:23 latex Allergy Rash Verified 05/18/18 19:23 Medications: Current Medications Acetaminophen (Tylenol) 650 mg PO Q4H PRN PRN Reason: Headache/Fever/Mild Pain (1-3) Last Admin: 12/12/18 13:59 Dose: 650 mg Hydrocodone Bitart/Acetaminophen ([place] 5/325) 1 tab PO Q4H PRN PRN Reason: Moderate Pain (4-6) Alprazolam (Xanax) 0.25 mg PO TID PRN PRN Reason: Anxiety Artificial Tears (Tears Naturale) 2 drop EA EYE PRN PRN PRN Reason: Dry Eyes Ascorbic Acid (Vitamin C) 500 mg PO DAILY [facility] Last Admin: 12/13/18 10:24 Dose: 500 mg Aspirin (Aspirin Chewable) 81 mg PO DAILY [facility] Last Admin: 12/12/18 10:37 Dose: 81 mg Bisacodyl (Dulcolax) 10 mg CA DAILYPRN PRN PRN Reason: Constipation Calcium Carbonate (Tums) 1,000 mg PO Q4H PRN PRN Reason: Heartburn or Indigestion Calcium/Vitamin D (Caltrate 600 + Vit D) 1 tab PO DAILY [facility] Last Admin: 12/13/18 10:25 Dose: 1 tab Coenzyme Q10 (Coenzyme Q10) 100 mg PO DAILY [facility] Last Admin: 12/13/18 10:24 Dose: 100 mg Gabapentin (Neurontin) 100 mg PO BID [facility] Last Admin: 12/13/18 10:21 Dose: 100 mg Guaifenesin (Robitussin Sf) 200 mg PO Q4H PRN PRN Reason: Cough Hydralazine HCl (Apresoline) 10 mg SLOW IVP Q4H PRN PRN Reason: SBP > 180 and HR < 70 Sodium Chloride (Normal Saline 0.9%) 1,000 mls @ 70 mls/hr IV .[id number] [facility] Levothyroxine Sodium (Synthroid) 50 mcg PO 0600 [facility] Last Admin: 12/13/18 05:19 Dose: 50 mcg Loperamide HCl (Imodium) 2 mg PO PRN PRN PRN Reason: Diarrhea/Loose Stools Loperamide HCl (Imodium) 2 mg PO PRN PRN PRN Reason: Diarrhea/Loose Stools Loratadine (Claritin) 10 mg PO DAILYPRN PRN PRN Reason: Sinus Symptoms Methylprednisolone Sodium Succinate (Solu-Medrol) 40 mg IVP BID [facility] Last Admin: 12/13/18 10:25 Dose: 40 mg Metoprolol Succinate (Toprol Xl) 50 mg PO DAILY [facility] Last Admin: 12/13/18 10:24 Dose: 50 mg Mineral Oil/White Petrolatum (Eucerin Cream) 0 gm TOP BIDPRN PRN PRN Reason: Dry Skin Mometasone Furoate/Formoterol Fumar (Dulera 200 Mcg/5 Mcg Inhaler) 2 puff INH BID-RT [facility] Last Admin: 12/13/18 06:40 Dose: 2 puff Montelukast Sodium (Singulair) 10 mg PO HS [facility] Last Admin: 12/12/18 21:09 Dose: Not Given Multivitamins/Minerals (Ocuvite With Lutein) 1 tab PO DAILY [facility] Last Admin: 12/13/18 10:25 Dose: 1 tab Ondansetron HCl (Zofran Odt) 4 mg PO Q6H PRN PRN Reason: Nausea/Vomiting Ondansetron HCl (Zofran) 4 mg IVP Q6H PRN PRN Reason: Nausea/Vomiting Last Admin: 12/12/18 20:29 Dose: 4 mg Pantoprazole Sodium (Protonix) 40 mg PO DAILY [facility] Last Admin: 12/13/18 10:23 Dose: 40 mg Nintedanib Esylate [ (Ofev] 150 Mg) 0 each PO BID [facility] Saccharomyces Boulardii (Florastor) 250 mg PO BID [facility] Last Admin: 12/13/18 10:22 Dose: 250 mg Senna/Docusate Sodium (Senokot S) 2 tab PO BID PRN PRN Reason: Constipation Simvastatin (Zocor) 5 mg PO [facility] Last Admin: 12/12/18 21:30 Dose: Not Given Sodium Chloride ([place] Nasal [place] 0.65%) 0 ml EA NARE QIDPRN PRN PRN Reason: Nasal Congestion Temazepam (Restoril) 15 mg PO [facility] Last Admin: 12/12/18 20:23 Dose: 15 mg Throat Lozenges (Cepastat Lozenges) 1 marisela PO Q2H PRN PRN Reason: Sore Throat
[2018-12-13] MEDS: Aspirin Chewable 81 MG TAB PO SCH (10:33)
[2018-12-13] MEDS: Sodium Chloride 0.9% 1,000 ML IV SCH (10:33)
[2018-12-13 12:32] VITALS: BMI 19.5
[2018-12-13] MEDS: Montelukast Sodium 10 mg Tablet PO SCH (20:04)
[2018-12-13] MEDS: Nintedanib Esylate [Ofev] 150 MG PO SCH ×4 (20:04→23:14)
[2018-12-13] MEDS: Simvastatin 5 MG TAB PO SCH (20:06)
[2018-12-13] MEDS: Loperamide HCl 2 MG CAP PO PRN (20:13)
[2018-12-13] MEDS: Temazepam 15 MG CAP PO SCH (20:22)
--- NOTE | 2018-12-13 20:39 | CON ---
DATE OF CONSULTATION: 12/13/2018 HISTORY OF PRESENT ILLNESS: The patient remained with idiopathic pulmonary fibrosis. She had a surgical lung biopsy after we followed a chest CT and pulmonary function test for several years and finally saw some progression. The biopsy was sent to the [facility] and reviewed by them as well as a CAT scan. I felt that the diagnosis was most likely consistent with slowly progressive idiopathic pulmonary fibrosis. This was done in June 2016. She has had a workup for reflux disease and does have reflux disease, but both she and I have not been excited about her undergoing a Ancelmo fundoplication. There are some data suggestive that this may be helpful in these cases, but certainly far from conclusive from what I have read. She has been managed with Ofev. She has had some loose stool issues with this, but has done excellent job of managing that. She recently went on oxygen for exercise-induced desaturation as her desaturation would be into the low 70s. For the most part, she is wearing oxygen except occasionally when she is at rest. Prior to admission, she had an episode at home where she felt like she was going to pass out, but does not describe things getting black or the room spinning. She has had this episode lasted 5 minutes. She denies having any associated chest pain with it. Besides being followed by me, she has also been followed by Dr. Gibson. She was told that Dr. Gibson would see her in consultation as well, but I do not see any notes from him thus far. PAST MEDICAL AND SURGICAL HISTORY: Remarkable for hypothyroidism, degenerative joint disease, rotator cuff repair, appendectomy, hysterectomy, carpal tunnel surgery, and her surgical lung biopsy. SOCIAL HISTORY: She is a nonsmoker and nondrinker. ALLERGIES: SHE REPORTS AZITHROMYCIN AND IODINE INTOLERANCE. MEDICATIONS: Prior to admission, she is on: 1. Ofev. 2. Lasix. 3. Synthroid. 4. Toprol. 5. Protonix. 6. Restoril. 7. Co-enzyme Q. FAMILY HISTORY: She has a family history of vascular disease. Her brother, who is a patient of mine of prostate cancer, is currently not . She is actually still quite functional and tries to exercise on a daily basis. She is currently just sold her house and is moving into an independent living environment. REVIEW OF SYSTEMS: Ten points otherwise negative for fever, chills, hemoptysis, or purulent sputum. She does have a cough productive of sputum in the morning, but she coughs and clears this up. She recently had severe coughing paroxysm that led to pain in her neck that shot down her spine. This pain persisted for quite some time during the day, but eventually resolved. She also had a headache with this, but this also resolved. PHYSICAL EXAMINATION: GENERAL: Blood pressure 122/99. She is afebrile, heart rate 80, respiratory rate 18, and oximetry is 98% on oxygen. She needs humidity added to her oxygen. HEENT: Her pupils are equal. Sclerae are anicteric. NECK: Supple. No lymphadenopathy. LUNGS: Remarkable for diffuse crackles. HEART: Regular rhythm. ABDOMEN: Soft and nontender. EXTREMITIES: Without clubbing, cyanosis, or edema. IMPRESSION: Episode of near-syncope of unclear etiology. Reviewing reports this weekend. When she was admitted on Tuesday, it did appear that she was worked up for thromboembolic disease. Even though, this is a transient 5-minute event, certainly could be consistent with a thromboembolic event. She has been monitored and had no reported dysrhythmias. Landscape Horticulture Instructor should still be consulted. I am told an echocardiogram has been ordered. Reviewed her lab shows normal renal function. Given that she has an iodine allergy, I would prefer to work her up with ventilation. Perfusion study recognizing that this may have some weaknesses given her chronic with diffuse lung disease. Obviously, there is a clear-cut lobar defect that will explain the problem. I will be happy to continue to follow the other physicians caring for. Job ID: [id number]
[2018-12-14] MEDS: Sodium Chloride 0.9% 1,000 ML IV SCH ×2 (00:30→16:31)
[2018-12-14] MEDS: HYDROcodone/Acetaminophen 5/325 mg Tablet PO PRN ×3 (00:30→22:55)
[2018-12-14] MEDS: Levothyroxine Sodium 50 MCG TAB PO SCH (05:23)
[2018-12-14] MEDS: Mometasone/Formoterol 120 PUFF INHALER INH SCH ×2 (06:49→18:13)
--- NOTE | 2018-12-14 10:10 | RAD ---
CHEST 2 VIEWS: HISTORY: Dyspnea, shortness of breath. COMPARISON: A 12/11/2018 exam. FINDINGS: Heart size is enlarged. Severe interstitial fibrotic lung changes are seen, stable as compared to th e prior exam. IMPRESSION: Stable exam. Severe interstitial fibrotic lung change. POS: TPC
--- NOTE | 2018-12-14 10:23 | NM ---
NUCLEAR MEDICINE PULMONARY PERFUSION SCAN: DATE: 12/14/2018. HISTORY: A 73-year-old female with pulmonary fibrosis, experienced recent syncope. TECHNIQUE: 5.6 mCi of Technetium 99m-MAA was injected IV. Pulmonary perfusion scintigraphy was performed in mul tiple views. The patient was not able to inspire deeply enough for the ventilation scan, and that portion of the s tudy was not performed. FINDINGS: The pulmonary perfusion uptake is diffusely heterogeneous consistent with the severe pulmonary fibros is demonstrated on recent chest radiograph. No moderate-sized or large perfusion defect is identifie d. IMPRESSION: 1. Intermediate to low probability for pulmonary thromboembolism. 2. Limited study because of the pulmonary fibrosis and lack of ventilation scan. POS: VITO
[2018-12-14] MEDS: Aspirin Chewable 81 MG TAB PO SCH (10:35)
[2018-12-14] MEDS: Saccharomyces boulardii 250 MG CAP PO SCH ×2 (10:35→20:57)
[2018-12-14] MEDS: Ascorbic Acid 500 mg Chewable Tablet PO SCH (10:35)
[2018-12-14] MEDS: Vit A,C & E/Lutein/Minerals Tablet PO SCH (10:35)
[2018-12-14] MEDS: Pantoprazole 40 MG GRANULES PACKET PO SCH (10:35)
[2018-12-14] MEDS: Ubidecarenone 50 MG CAP PO SCH (10:35)
[2018-12-14] MEDS: Gabapentin 100 MG CAP PO SCH ×3 (10:35→20:58)
[2018-12-14] MEDS: Calcium Carbonate + Vit D 1 TAB PO SCH (10:35)
[2018-12-14] MEDS: Nintedanib Esylate [Ofev] 150 MG PO SCH ×2 (10:39→20:58)
[2018-12-14] MEDS: Loperamide HCl 2 MG CAP PO PRN (10:40)
--- NOTE | 2018-12-14 10:46 | PDOC.PN ---
- Subjective Encounter Start Date: 12/14/18 Encounter Start Time: 07:10 -: old records requested/rev Patient seen and examined. No new complaints. No overnight events still feels dizzi, has dyspnea - Objective Resuscitation Status - Order Detail: 12/12/18 12:07 Resuscitation Status Routine Resuscitation Status: DNAR: NO Resuscitation Discussed with: discussed with pt MAR Reviewed: Yes Vital Signs & Weight: Vital Signs (12 hours) Temp Pulse Resp BP BP BP Pulse Ox 12/14/18 08:00 98.4 F 84 18 134/60 92 L 12/14/18 06:49 79 16 95 12/14/18 04:40 97.4 F L 77 20 127/68 119/70 124/76 96 Weight Admit Weight 116 lb Weight 117 lb I&O: 12/13/18 12/14/18 12/15/18 06:59 06:59 06:59 Intake Total 1140 2533 Output Total 2850 1750 Balance -1710 783 Result Diagrams: 12/13/18 05:28 12/13/18 05:28 Radiology Reviewed by me: Yes (chest xray and V/Q scan noted) EKG Reviewed by me: Yes (nsr) Phys Exam - Physical Examination Constitutional: NAD HEENT: PERRLA, moist MMs, sclera anicteric Neck: no JVD, supple Respiratory: no wheezing, no rhonchi bilateral rales Cardiovascular: RRR, no significant murmur, no rub Gastrointestinal: soft, non-tender, no distention, positive bowel sounds Musculoskeletal: no edema, pulses present Neurological: non-focal, normal sensation, moves all 4 limbs Lymphatic: no nodes Psychiatric: normal affect, A&O x 3 Skin: no rash, normal turgor Dx/Plan (1) Dizziness Code(s): R42 - DIZZINESS AND GIDDINESS Status: Acute (2) Anxiety and depression Code(s): F41.9 - ANXIETY DISORDER, UNSPECIFIED; F32.9 - MAJOR DEPRESSIVE DISORDER, SINGLE EPISODE, UNSPECIFIED Status: Chronic (3) Dyslipidemia Code(s): E78.5 - HYPERLIPIDEMIA, UNSPECIFIED Status: Chronic (4) GERD (gastroesophageal reflux disease) Code(s): K21.9 - GASTRO-ESOPHAGEAL REFLUX DISEASE WITHOUT ESOPHAGITIS Status: Chronic (5) Hypothyroidism Code(s): E03.9 - HYPOTHYROIDISM, UNSPECIFIED Status: Chronic (6) Protein-calorie malnutrition, moderate Code(s): E44.0 - MODERATE PROTEIN-CALORIE MALNUTRITION Status: Chronic (7) Pulmonary fibrosis Code(s): J84.10 - PULMONARY FIBROSIS, UNSPECIFIED Status: Chronic - Plan cont current plan of care * will consult cardiology * echo result pending * will change to inpt status * medication reviewed as below * symptomatic treatment. * continue IVF Review of Systems - Review of Systems Eyes: negative: Pain, Vision Change, Conjunctivae Inflammation, Eyelid Inflammation, Redness, Other ENT: negative: Ear Pain, Ear Discharge, Nose Pain, Nose Discharge, Nose Congestion, Mouth Pain, Mouth Swelling, Throat Pain, Throat Swelling, Other Respiratory: Cough, Shortness of Breath, SOB with Excertion. negative: Dry, Hemoptysis, Pleuritic Pain, Sputum, Wheezing Cardiovascular: light headedness. negative: chest pain, palpitations, orthopnea , paroxysmal nocturnal dyspnea, edema, other Gastrointestinal: negative: Nausea, Vomiting, Abdominal Pain, Diarrhea, Constipation, Melena, Hematochezia, Other Genitourinary: negative: Dysuria, Frequency, Incontinence, Hematuria, Retention , Other Musculoskeletal: negative: Neck Pain, Shoulder Pain, Arm Pain, Back Pain, Hand Pain, Leg Pain, Foot Pain, Other Skin: negative: Rash, Lesions, Bandar, Bruising, Other - Medications/Allergies Allergies/Adverse Reactions: Allergies Allergy/AdvReac Type Severity Reaction Status Date / Time azithromycin [From Zithromax] Allergy Verified 05/18/18 19:23 iodine Allergy Verified 05/18/18 19:23 latex Allergy Rash Verified 05/18/18 19:23 Medications: Current Medications Acetaminophen (Tylenol) 650 mg PO Q4H PRN PRN Reason: Headache/Fever/Mild Pain (1-3) Last Admin: 12/12/18 13:59 Dose: 650 mg Hydrocodone Bitart/Acetaminophen ([place] 5/325) 1 tab PO Q4H PRN PRN Reason: Moderate Pain (4-6) Last Admin: 12/14/18 06:06 Dose: 1 tab Alprazolam (Xanax) 0.25 mg PO TID PRN PRN Reason: Anxiety Artificial Tears (Tears Naturale) 2 drop EA EYE PRN PRN PRN Reason: Dry Eyes Ascorbic Acid (Vitamin C) 500 mg PO DAILY [facility] Last Admin: 12/14/18 10:35 Dose: 500 mg Aspirin (Aspirin Chewable) 81 mg PO DAILY [facility] Last Admin: 12/14/18 10:35 Dose: 81 mg Bisacodyl (Dulcolax) 10 mg [place] DAILYPRN PRN PRN Reason: Constipation Calcium Carbonate (Tums) 1,000 mg PO Q4H PRN PRN Reason: Heartburn or Indigestion Calcium/Vitamin D (Caltrate 600 + Vit D) 1 tab PO DAILY [facility] Last Admin: 12/14/18 10:35 Dose: 1 tab Coenzyme Q10 (Coenzyme Q10) 100 mg PO DAILY [facility] Last Admin: 12/14/18 10:35 Dose: 100 mg Gabapentin (Neurontin) 100 mg PO BID [facility] Last Admin: 12/14/18 10:35 Dose: 100 mg Guaifenesin (Robitussin Sf) 200 mg PO Q4H PRN PRN Reason: Cough Hydralazine HCl (Apresoline) 10 mg SLOW IVP Q4H PRN PRN Reason: SBP > 180 and HR < 70 Sodium Chloride (Normal Saline 0.9%) 1,000 mls @ 70 mls/hr IV .[id number] [facility] Last Admin: 12/14/18 00:30 Dose: 1,000 mls Levothyroxine Sodium (Synthroid) 50 mcg PO 0600 [facility] Last Admin: 12/14/18 05:23 Dose: 50 mcg Loperamide HCl (Imodium) 2 mg PO PRN PRN PRN Reason: Diarrhea/Loose Stools Last Admin: 12/14/18 10:40 Dose: 2 mg Loperamide HCl (Imodium) 2 mg PO PRN PRN PRN Reason: Diarrhea/Loose Stools Loratadine (Claritin) 10 mg PO DAILYPRN PRN PRN Reason: Sinus Symptoms Methylprednisolone Sodium Succinate (Solu-Medrol) 40 mg IVP BID [facility] Last Admin: 12/14/18 10:36 Dose: 40 mg Metoprolol Succinate (Toprol Xl) 50 mg PO DAILY [facility] Last Admin: 12/14/18 10:35 Dose: 50 mg Mineral Oil/White Petrolatum (Eucerin Cream) 0 gm TOP BIDPRN PRN PRN Reason: Dry Skin Mometasone Furoate/Formoterol Fumar (Dulera 200 Mcg/5 Mcg Inhaler) 2 puff INH BID-RT [facility] Last Admin: 12/14/18 06:49 Dose: 2 puff Montelukast Sodium (Singulair) 10 mg PO [facility] Last Admin: 12/13/18 20:04 Dose: 10 mg Multivitamins/Minerals (Ocuvite With Lutein) 1 tab PO DAILY [facility] Last Admin: 12/14/18 10:35 Dose: 1 tab Ondansetron HCl (Zofran Odt) 4 mg PO Q6H PRN PRN Reason: Nausea/Vomiting Ondansetron HCl (Zofran) 4 mg IVP Q6H PRN PRN Reason: Nausea/Vomiting Last Admin: 12/12/18 20:29 Dose: 4 mg Pantoprazole Sodium (Protonix) 40 mg PO DAILY [facility] Last Admin: 12/14/18 10:35 Dose: 40 mg Nintedanib Esylate [ (Ofev] 150 Mg) 0 each PO BID [facility] Last Admin: 12/14/18 10:39 Dose: 1 each Saccharomyces Boulardii (Florastor) 250 mg PO BID [facility] Last Admin: 12/14/18 10:35 Dose: 250 mg Senna/Docusate Sodium (Senokot S) 2 tab PO BID PRN PRN Reason: Constipation Simvastatin (Zocor) 5 mg PO [facility] Last Admin: 12/13/18 20:06 Dose: 5 mg Sodium Chloride ([place] Nasal [place] 0.65%) 0 ml EA NARE QIDPRN PRN PRN Reason: Nasal Congestion Temazepam (Restoril) 15 mg PO [facility] Last Admin: 12/13/18 20:22 Dose: 15 mg Throat Lozenges (Cepastat Lozenges) 1 marisela PO Q2H PRN PRN Reason: Sore Throat
[2018-12-14] MEDS: Montelukast Sodium 10 mg Tablet PO SCH (20:58)
[2018-12-14] MEDS: Simvastatin 5 MG TAB PO SCH (20:58)
[2018-12-14] MEDS: Temazepam 15 MG CAP PO SCH (20:58)
--- NOTE | 2018-12-14 22:42 | PRG ---
DATE OF SERVICE: 12/14/2018 SUBJECTIVE: Ms. Tovar is doing well overnight. She says she is feeling stronger. She has had no recurrence of her events that she had at home. Cardiology has been consulted. There have been no rhythm disturbances reported to me. OBJECTIVE: VITAL SIGNS: She is afebrile. Heart rates in the 90s, respiratory rate 16, oximetries 92 to 95 on 2 L cannula, and blood pressure 145/70. LUNGS: Remarkable for diffuse crackles. HEART: Regular rhythm. ABDOMEN: Soft. Ventilation perfusion study today showed no segmental defects. IMPRESSION: 1. Pulmonary fibrosis, on Ofev. 2. Episode of near-syncope of unclear etiology. I think thromboembolic disease has been effectively ruled out. 3. Echocardiogram shows a normal ejection fraction. She does have some diastolic dysfunction seen on her echo, but this was not clinically apparent. Her radiograph certainly will not pick it up because of her interstitial fibrosis. Hopefully, she will be stable for discharge tomorrow once Cardiology sees her. Job ID: [id number]
--- NOTE | 2018-12-15 00:33 | CON ---
DATE OF CONSULTATION: HISTORY OF PRESENT ILLNESS: Carmelo Tovar is a pleasant 73-year-old white female who I have followed intermittently since July 1998. At that time, she was referred by Dr. Sanchez Grande for evaluation of exertional dyspnea. She underwent stress echo testing which was unremarkable. She has undergone open lung biopsy and found to have idiopathic pulmonary fibrosis. She is on home oxygen at the present time. In December 2015, she underwent Lexiscan Cardiolite testing. This revealed a fixed distal septal defect. Ultimately, decision was made for her to undergo cardiac catheterization which [facility]. This revealed normal coronary arteries. Left ventriculogram revealed an ejection fraction of 55% to 60%. She was last seen in July 2018. She now is admitted after she had an episode at home where she felt that she would pass out. She admits that she has been under a great deal of stress moving to the [place]. She sold her house in 2 days and was having to try to get everything together to move. She got up on the day of admission and was getting her breakfast and then felt profoundly weak. She denied any chest discomfort or palpitations. After approximately 5 minutes, this passed, but she did come to the hospital for further evaluation. PAST MEDICAL HISTORY: Normal coronary arteries, idiopathic pulmonary fibrosis, hypercholesterolemia, hypothyroidism, and degenerative joint disease. PAST SURGICAL HISTORY: Hysterectomy, appendectomy, carpal tunnel surgery, lung biopsy, and rotator cuff repair. ALLERGIES: ERYTHROMYCIN, PENICILLIN, IODINE, AND LASIX. SOCIAL HISTORY: She does not smoke or drink. REVIEW OF SYSTEMS: Otherwise unremarkable. PHYSICAL EXAMINATIONS: Blood pressure 145/70, pulse of 78, sinus rhythm on the monitor. She has not had any significant arrhythmias on the monitor. HEENT: PERRL. NECK: Supple. CHEST: Reveals crackles one-half way up the posterior lung torres. CARDIOVASCULAR EXAMINATION: S1 and S2 normal without any S3 or S4. There is a 1/6 systolic murmur along the left sternal border. ABDOMEN: Normal bowel sounds without tenderness or organomegaly. EXTREMITIES: Revealed no clubbing, cyanosis, or edema. NEUROLOGIC: Grossly intact. SKIN: Warm and dry. LABORATORY DATA: EKG reveals sinus tachycardia with occasional PVC, poor R-wave progression. Hemoglobin 11.8, hematocrit 39.1, white count 4900, platelets 390, 000. Sodium 134, potassium 4.5, chloride 99, carbon dioxide 25, BUN 8, and creatinine 0.54. Troponin I 0.080. Cholesterol 116, triglycerides 120, HDL 44, LDL 48. ASSESSMENT: 1. Episode of weakness and near-syncope of uncertain etiology. She did not have any darkening of her vision and did not have any vertiginous symptoms. She had a V/ Q scan which was low to intermediate probability. She has not had any arrhythmias on the monitor. 2. Idiopathic pulmonary fibrosis. 3. Recent life stresses. 4. History of moderate mitral regurgitation. 5. Hypercholesterolemia, under good control. 6. Normal coronary arteries in January 2016 cardiac catheterization. 7. Hypothyroidism. 8. History of premature ventricular contractions. PLAN: Echocardiogram will be reviewed. The patient will continue to be monitored. Consideration given to an outpatient 30-day monitor if no specific etiology is found. Job ID: [id number] MTDD
[2018-12-15] MEDS: Levothyroxine Sodium 50 MCG TAB PO SCH (05:15)
[2018-12-15] MEDS: Sodium Chloride 0.9% 1,000 ML IV SCH (05:15)
[2018-12-15] MEDS: HYDROcodone/Acetaminophen 5/325 mg Tablet PO PRN (05:18)
[2018-12-15] MEDS ORDERED: predniSONE 20 MG TAB PO SCH (08:00)
[2018-12-15] MEDS: Ascorbic Acid 500 mg Chewable Tablet PO SCH (09:30)
[2018-12-15] MEDS: Gabapentin 100 MG CAP PO SCH (09:31)
[2018-12-15] MEDS: Nintedanib Esylate [Ofev] 150 MG PO SCH (09:32)
[2018-12-15] MEDS: Saccharomyces boulardii 250 MG CAP PO SCH (09:32)
[2018-12-15] MEDS: Pantoprazole 40 MG GRANULES PACKET PO SCH (09:32)
[2018-12-15] MEDS: Mometasone/Formoterol 120 PUFF INHALER INH SCH (10:28)
--- NOTE | 2018-12-15 10:51 | PDOC.PN ---
- Subjective Encounter Start Date: 12/15/18 Encounter Start Time: 07:40 Patient seen and examined. No new complaints. No overnight events - Objective Resuscitation Status - Order Detail: 12/12/18 12:07 Resuscitation Status Routine Resuscitation Status: DNAR: NO Resuscitation Discussed with: discussed with pt MAR Reviewed: Yes Vital Signs & Weight: Vital Signs (12 hours) Temp Pulse Resp BP BP Pulse Ox 12/15/18 10:28 77 12 12/15/18 07:44 97.9 F 77 18 143/82 H 96 12/15/18 03:59 98.7 F 70 18 145/79 H 142/70 H 96 Weight Admit Weight 116 lb Weight 119 lb 9.6 oz I&O: 12/14/18 12/15/18 12/16/18 06:59 06:59 06:59 Intake Total 2533 2604 Output Total 1750 4050 Balance 783 -1446 Result Diagrams: 12/13/18 05:28 12/13/18 05:28 Radiology Reviewed by me: Yes (echo) EKG Reviewed by me: Yes (nsr) Phys Exam - Physical Examination Constitutional: NAD HEENT: PERRLA, moist MMs, sclera anicteric Neck: no JVD, supple Respiratory: no wheezing, no rhonchi rales+ Cardiovascular: RRR, no significant murmur, no rub Gastrointestinal: soft, non-tender, no distention, positive bowel sounds Musculoskeletal: no edema, pulses present Neurological: non-focal, normal sensation, moves all 4 limbs Lymphatic: no nodes Psychiatric: normal affect, A&O x 3 Skin: no rash, normal turgor Dx/Plan (1) Dizziness Code(s): R42 - DIZZINESS AND GIDDINESS Status: Acute (2) Anxiety and depression Code(s): F41.9 - ANXIETY DISORDER, UNSPECIFIED; F32.9 - MAJOR DEPRESSIVE DISORDER, SINGLE EPISODE, UNSPECIFIED Status: Chronic (3) Dyslipidemia Code(s): E78.5 - HYPERLIPIDEMIA, UNSPECIFIED Status: Chronic (4) GERD (gastroesophageal reflux disease) Code(s): K21.9 - GASTRO-ESOPHAGEAL REFLUX DISEASE WITHOUT ESOPHAGITIS Status: Chronic (5) Hypothyroidism Code(s): E03.9 - HYPOTHYROIDISM, UNSPECIFIED Status: Chronic (6) Protein-calorie malnutrition, moderate Code(s): E44.0 - MODERATE PROTEIN-CALORIE MALNUTRITION Status: Chronic (7) Pulmonary fibrosis Code(s): J84.10 - PULMONARY FIBROSIS, UNSPECIFIED Status: Chronic - Plan cont current plan of care * medication reviewed as below * symptomatic treatment * see discharge yusuf. Review of Systems - Review of Systems ENT: negative: Ear Pain, Ear Discharge, Nose Pain, Nose Discharge, Nose Congestion, Mouth Pain, Mouth Swelling, Throat Pain, Throat Swelling, Other Respiratory: negative: Cough, Dry, Shortness of Breath, Hemoptysis, SOB with Excertion, Pleuritic Pain, Sputum, Wheezing Cardiovascular: negative: chest pain, palpitations, orthopnea, paroxysmal nocturnal dyspnea, edema, light headedness, other Gastrointestinal: negative: Nausea, Vomiting, Abdominal Pain, Diarrhea, Constipation, Melena, Hematochezia, Other Genitourinary: negative: Dysuria, Frequency, Incontinence, Hematuria, Retention , Other Musculoskeletal: negative: Neck Pain, Shoulder Pain, Arm Pain, Back Pain, Hand Pain, Leg Pain, Foot Pain, Other Skin: negative: Rash, Lesions, Bandar, Bruising, Other - Medications/Allergies Allergies/Adverse Reactions: Allergies Allergy/AdvReac Type Severity Reaction Status Date / Time azithromycin [From Zithromax] Allergy Verified 05/18/18 19:23 iodine Allergy Verified 05/18/18 19:23 latex Allergy Rash Verified 05/18/18 19:23 Medications: Current Medications Acetaminophen (Tylenol) 650 mg PO Q4H PRN PRN Reason: Headache/Fever/Mild Pain (1-3) Last Admin: 12/12/18 13:59 Dose: 650 mg Hydrocodone Bitart/Acetaminophen ([place] 5/325) 1 tab PO Q4H PRN PRN Reason: Moderate Pain (4-6) Last Admin: 12/15/18 05:18 Dose: 1 tab Alprazolam (Xanax) 0.25 mg PO TID PRN PRN Reason: Anxiety Artificial Tears (Tears Naturale) 2 drop EA EYE PRN PRN PRN Reason: Dry Eyes Ascorbic Acid (Vitamin C) 500 mg PO DAILY [facility] Last Admin: 12/15/18 09:30 Dose: 500 mg Aspirin (Aspirin Chewable) 81 mg PO DAILY [facility] Last Admin: 12/14/18 10:35 Dose: 81 mg Bisacodyl (Dulcolax) 10 mg [place] DAILYPRN PRN PRN Reason: Constipation Calcium Carbonate (Tums) 1,000 mg PO Q4H PRN PRN Reason: Heartburn or Indigestion Calcium/Vitamin D (Caltrate 600 + Vit D) 1 tab PO DAILY [facility] Last Admin: 12/14/18 10:35 Dose: 1 tab Coenzyme Q10 (Coenzyme Q10) 100 mg PO DAILY [facility] Last Admin: 12/14/18 10:35 Dose: 100 mg Gabapentin (Neurontin) 100 mg PO TID [facility] Last Admin: 12/15/18 09:31 Dose: 100 mg Guaifenesin (Robitussin Sf) 200 mg PO Q4H PRN PRN Reason: Cough Hydralazine HCl (Apresoline) 10 mg SLOW IVP Q4H PRN PRN Reason: SBP > 180 and HR < 70 Sodium Chloride (Normal Saline 0.9%) 1,000 mls @ 70 mls/hr IV .[id number] [facility] Last Admin: 12/15/18 05:15 Dose: 1,000 mls Levothyroxine Sodium (Synthroid) 50 mcg PO 0600 [facility] Last Admin: 12/15/18 05:15 Dose: 50 mcg Loperamide HCl (Imodium) 2 mg PO PRN PRN PRN Reason: Diarrhea/Loose Stools Last Admin: 12/14/18 10:40 Dose: 2 mg Loperamide HCl (Imodium) 2 mg PO PRN PRN PRN Reason: Diarrhea/Loose Stools Loratadine (Claritin) 10 mg PO DAILYPRN PRN PRN Reason: Sinus Symptoms Metoprolol Succinate (Toprol Xl) 50 mg PO DAILY [facility] Last Admin: 12/15/18 09:32 Dose: 50 mg Mineral Oil/White Petrolatum (Eucerin Cream) 0 gm TOP BIDPRN PRN PRN Reason: Dry Skin Mometasone Furoate/Formoterol Fumar (Dulera 200 Mcg/5 Mcg Inhaler) 2 puff INH BID-RT [facility] Last Admin: 12/15/18 10:28 Dose: 2 puff Montelukast Sodium (Singulair) 10 mg PO HS [facility] Last Admin: 12/14/18 20:58 Dose: 10 mg Multivitamins/Minerals (Ocuvite With Lutein) 1 tab PO DAILY [facility] Last Admin: 12/14/18 10:35 Dose: 1 tab Ondansetron HCl (Zofran Odt) 4 mg PO Q6H PRN PRN Reason: Nausea/Vomiting Ondansetron HCl (Zofran) 4 mg IVP Q6H PRN PRN Reason: Nausea/Vomiting Last Admin: 12/12/18 20:29 Dose: 4 mg Pantoprazole Sodium (Protonix) 40 mg PO DAILY [facility] Last Admin: 12/15/18 09:32 Dose: 40 mg Nintedanib Esylate [ (Ofev] 150 Mg) 0 each PO BID [facility] Last Admin: 12/15/18 09:32 Dose: 1 each Prednisone (Prednisone) 40 mg [facility] Last Admin: 12/15/18 09:30 Dose: 40 mg Saccharomyces Boulardii (Florastor) 250 mg PO BID [facility] Last Admin: 12/15/18 09:32 Dose: 250 mg Senna/Docusate Sodium (Senokot S) 2 tab PO BID PRN PRN Reason: Constipation Simvastatin (Zocor) 5 mg PO [facility] Last Admin: 12/14/18 20:58 Dose: 5 mg Sodium Chloride ([place] Nasal [place] 0.65%) 0 ml EA NARE QIDPRN PRN PRN Reason: Nasal Congestion Temazepam (Restoril) 15 mg PO [facility] Last Admin: 12/14/18 20:58 Dose: 15 mg Throat Lozenges (Cepastat Lozenges) 1 marisela PO Q2H PRN PRN Reason: Sore Throat
--- NOTE | 2018-12-15 11:41 | PRG ---
DATE OF SERVICE: 12/15/2018 SUBJECTIVE: Ms. Tovar did well overnight. She has no complaints. She has had no recurrence of her near syncope. OBJECTIVE: VITAL SIGNS: Heart rates in 70s, respiratory rate is 12, oximetry is 96 on a dqydh-cbc-g-half. She is on LUNGS: Unchanged. She always will have diffuse crackles. HEART: Unchanged. ABDOMEN: Unchanged. IMPRESSION: Near-syncope of unclear etiology. She is having an event monitor placed by Dr. Gibson's office. I will see her in followup in 3 weeks. I have given her prescription for 20 of prednisone to take for 4 days, then 10 mg for 4 days. Job ID: [id number]
[2018-12-15 11:44] VITALS: BP 159/72; TEMP 97.5
[2018-12-15] MEDS: Aspirin Chewable 81 MG TAB PO SCH (11:47)
[2018-12-15] MEDS: Calcium Carbonate + Vit D 1 TAB PO SCH (11:49)
[2018-12-15] MEDS: Vit A,C & E/Lutein/Minerals Tablet PO SCH (11:49)
[2018-12-15] MEDS: Ubidecarenone 50 MG CAP PO SCH (11:49)
--- NOTE | 2018-12-15 12:03 | DIS ---
DATE OF ADMISSION: 12/14/2018 DATE OF DISCHARGE: 12/15/2018 PRIMARY CARE PHYSICIAN: Erika Estrada MD. DISCHARGE DISPOSITION: Home. PRIMARY DISCHARGE DIAGNOSES: Dizziness, unexplained elevated troponin. SECONDARY DISCHARGE DIAGNOSES: Idiopathic pulmonary fibrosis, moderate protein calorie malnutrition, hypothyroidism, gastroesophageal reflux disease, dyslipidemia, anxiety, and depression. PRIMARY PROCEDURE/OPERATION: None. RADIOLOGICAL INVESTIGATION: CT brain negative for any acute intracranial process. Chest x-ray showed pulmonary fibrosis. Pulmonary perfusion scan showed low probability of PE. Echocardiography showed normal EF. SIGNIFICANT LABORATORY DATA: WBC 4.9, hemoglobin 11.8, platelet 390. Sodium 134, potassium 4.5, BUN 8, creatinine 0.54, calcium 10.5, troponin 0.078. BNP 81.6. LDL 48. Urinalysis normal. DISCHARGE MEDICATIONS: 1. Vitamin C 500 mg p.o. daily. 2. Aspirin 81 mg p.o. daily. 3. Multivitamin one tablet daily. 4. Calcium with vitamin D 1 tablet daily. 5. Ipratropium bromide nasal spray p.r.n. 6. Ferrous sulfate 1 tablet daily. 7. Lactobacillus one capsule b.i.d. 8. Synthroid 50 mcg daily. 9. Toprol-XL 50 mg daily. 10. Singulair 10 mg p.o. at bedtime. 11. Nintedanib 150 mg p.o. b.i.d. 12. Protonix 40 mg p.o. daily. 13. Livalo 0.5 mg p.o. at bedtime. 14. Restoril 15 mg p.o. at bedtime. 15. Coenzyme Q10 100 mg p.o. daily. 16. Lasix 20 mg p.o. daily. 17. Gabapentin 100 mg p.o. t.i.d. 18. Dulera 2 puffs inhalation b.i.d. 19. Prednisone 40 mg p.o. daily for 5 days, then 20 mg p.o. daily for 5 days. CONTRAINDICATION: None. CODE STATUS: DNR. INPATIENT MEDICAL MANAGER: Dr. Cueto was following while in hospital. Dr. Gibson was following while in hospital. TEST RESULT PENDING ON DISCHARGE: None. ALLERGIES: AZITHROMYCIN, IODINE, LATEX. DISCHARGE PLAN: Posthospital, the patient will follow up with Dr. Gibson, Dr. Cueto, and primary care physician as instructed. HOSPITAL COURSE: A 73-year-old female with above-mentioned medical problem, who was brought to hospital for dizziness. I evaluated this patient on admission, please see my HPI for further details. Her dizziness was unexplained. She had elevated troponin. We kept initially this patient as observation status. Pulmonary group was consulted. They started steroid and Dulera. Even after this treatment, the patient was continued to feel dizziness and that is why we changed her status to inpatient status. We started IV fluid and next day she started feeling better. Dr. Cueto ruled out pulmonary embolism with V/Q scan. Echocardiography showed normal EF. Dr. Edd Gibson was also not sure what is causing her dizziness, but he recommended 30 days Holter monitoring, which was arranged by the time of discharge. By the time of discharge, the patient is doing much better. She is feeling better as well. Her dizziness was unexplained. She will continue all her previous medication. During this admission, gabapentin increased to three times daily and Dulera was prescribed and prednisone tapering dose was prescribed. The patient is seen and examined at bedside today. Please see my progress note from today for further details. The patient is medically stable for discharge. Job ID: [id number]
--- NOTE | 2018-12-15 13:13 | PQF ---
CLINICAL DOCUMENTATION IMPROVEMENT CLARIFICATION FORM: ICD-10 Updated PLEASE DO AN ADDENDUM TO THE PROGRESS NOTE WITH ANY DOCUMENTATION UPDATES OR ADDITIONS AND CARRY THROUGH TO DC SUMMARY. THANK YOU. DATE: 12/15/18 ATTN: DR. WHITT Please exercise your independent, professional judgment in responding to the clarification form. Clinical indicators are provided on the bottom of this form for your review Please check appropriate box(s): [ ] Acute Respiratory Failure: [ ] with Hypoxia[ ] with Hypercapnia [ ] Acute On Chronic Respiratory Failure: [ ] with Hypoxia [ ] with Hypercapnia [ ] Acute Respiratory Failure due to: (etiology) [ ] ARDS (Acute Respiratory Distress Syndrome) [ x] Chronic Respiratory Failure only [ x ] with Hypoxia [ ] with Hypercapnia [ ] Hypoxia [ ] Other diagnosis [ ] Unable to determine In addition, please specify: Present on Admission (POA): [x ] Yes [ ] No [ ] Unable to determine For continuity of documentation, please document condition throughout progress notes and discharge summary. Thank You. CLINICAL INDICATORS - SIGNS / SYMPTOMS / LABS H&P: "ON HOME OXYGEN THERAPY" "SHE IS USING OXYGEN ALL THE TIME" NURSING NOTE 12/15: "BREATH SOUNDS WITH CRACKLES, BILATERAL ANTERIOR LOWER LOBE" RISKS: PULMONARY FIBROSIS TREATMENT: SUPPLEMENTAL OXYGEN DULERA (12/12-PRESENT) SINGULAIR (12/12-PRESENT) PREDNISONE (STARTED 12/15) PULMONARY PERFUSION SCAN PULMONARY CONSULT (This form is maintained as a part of the permanent medical record) 2014 [employer]. All Rights Reserved [facility]
== END 2018-12-15 13:55 | disposition home or self-care (01) | DRG 149 ==
LOC: ERS 12:49 → 2NO 12-12 09:46 → OBSVTOIN 12-14 10:44
PROVIDERS: ADMIT Emergency Medicine; ATTEND Emergency Medicine
DX: R42 Dizziness and giddiness (principal); E44.0 Moderate protein-calorie malnutrition; J96.11 Chronic respiratory failure with hypoxia; J84.112 Idiopathic pulmonary fibrosis; K21.9 Gastro-esophageal reflux disease without esophagitis; I10 Essential (primary) hypertension; Z66 Do not resuscitate; Z68.20 Body mass index [BMI] 20.0-20.9, adult; E03.9 Hypothyroidism, unspecified; K76.0 Fatty (change of) liver, not elsewhere classified; K44.9 Diaphragmatic hernia without obstruction or gangrene; M19.90 Unspecified osteoarthritis, unspecified site; I34.0 Nonrheumatic mitral (valve) insufficiency; F41.9 Anxiety disorder, unspecified; F32.9 Major depressive disorder, single episode, unspecified; Z99.81 Dependence on supplemental oxygen; Z79.899 Other long term (current) drug therapy; Z79.82 Long term (current) use of aspirin; Z88.8 Allergy status to other drugs, medicaments and biological substances; Z91.040 Latex allergy status
CPT/HCPCS: 36415; 70450; 71045; 71046; 78582; 80048; 80053; 80061; 81001; 81003; 81015; 82553; 83880; 84484; 85025; 93005; 93306; 94760; 96360; 96361; A9540; A9558; J2405; J2920; J7506

== ENCOUNTER 2018-12-22 12:42 | Emergency (ER) | payer MEDICARE, BC ==
[~2018-12-22 12:42] MED LIST: ISOVUE-370 76%-LOCM 1 ML ONE
[2018-12-22] MEDS ORDERED: Diltiazem 125 MG/25 ML ONE (13:27)
[2018-12-22 13:39] LABS: #Eosinphils 0.1 thou/uL (0.0-0.7); #Lymphocytes 1.3 thou/uL (1.20-3.40); #Monocytes 1.1 thou/uL (0.11-0.59); #Neutrophils 11.7 thou/uL (1.40-6.50); %Basophils 0.3 % (0.0-1.0); %Eosinophils 0.6 % (0.0-10.0); %Lymphocytes 9.4 % (21.0-51.0); %Monocytes 7.5 % (0.0-10.0); %Neutrophils 82.2 % (42.0-75.0); Hemoglobin 11.8 g/dL (12.0-16.0); Mean Corpuscular HGB CONC 32.3 g/dL (32.0-36.0); Mean Corpuscular Hemoglobin 26.4 pg (27.0-31.0); Mean Corpuscular Volume 81.7 fL (78.0-98.0); Mean Platelet Volume 7.8 fL (7.4-10.4); Platelet Count 322 thou/uL (130-400); Red Blood Cell (RBC) Count 4.48 mill/uL (4.20-5.40); White Blood Cell (WBC) Count 14.3 thou/uL (4.8-10.8)
[2018-12-22 14:01] LABS: ALT (SGPT) 19 U/L (8-55); AST (SGOT) 23 U/L (5-34); Albumin 3.9 g/dL (3.4-4.8); Alkaline Phosphatase 111 U/L (40-150); Anion Gap 14 mmol/L (10-20); BUN (Urea Nitrogen) 13 mg/dL (9.8-20.1); Bilirubin, Total 0.6 mg/dL (0.2-1.2); Calc. Creatinine Clearance 0 mL/min (70-130); Calcium 10.2 mg/dL (7.8-10.44); Carbon Dioxide 30 mmol/L (23-31); Chloride 94 mmol/L (98-107); Estimated GFR-MDRD Greater than 90; Globulin 3.9 g/dL (2.4-3.5); Glucose 102 mg/dL (83-110); Potassium 3.9 mmol/L (3.5-5.1); Protein, Total 7.8 g/dL (6.0-8.3); Sodium 134 mmol/L (136-145)
--- NOTE | 2018-12-22 14:19 | ULT ---
VENOUS DOPPLER ULTRASOUND OF THE RIGHT LOWER EXTREMITY: Date: 12/22/18 HISTORY: Right lower quadrant pain. TECHNIQUE: Knutson scale ultrasound with color flow and spectral Doppler imaging of the deep venous system of the r ight lower extremity was performed. FINDINGS: There is good flow, compression, and augmentation noted in the common femoral, femoral, deep femoral, popliteal, posterior tibial, and greater saphenous veins of the right lower extremity. IMPRESSION: No evidence of deep venous thrombosis in the right lower extremity. POS: C
[2018-12-22] MEDS ORDERED: methylPREDNISolone Sod Succ/PF 125 MG/2 ML VIAL ONE (14:28)
[2018-12-22] MEDS ORDERED: Famotidine/PF 20 mg/2ml Vial ONE (14:28)
[2018-12-22] MEDS ORDERED: diphenhydrAMINE 50 MG/ML VIAL ONE (14:30)
[2018-12-22] MEDS ORDERED: HYDROcodone/Acetaminophen 5/325 mg Tablet ONE (14:53)
--- NOTE | 2018-12-22 15:50 | CT ---
CT OF ABDOMEN AND PELVIS AND LOWER EXTREMITIES PERFORMED WITH CONTRAST ENHANCEMENT: 12/22/18 HISTORY: Patient with right foot pain. Idiopathic pulmonary fibrosis, hyperlipidemia. Surgical history of hyst erectomy. Patient is premedicated via the Fast prep protocol. Lung bases show pronounced interstitial fibrotic lung change and evidence for honeycombing. Large hia martina hernia is present. The liver, and spleen show no focal abnormalities. The spleen measures approximately 10 cm in length. The pancreas and gallbladder regions appear unremarkable. Right and left adrenal glands are normal. hypodensity involving the right kidney is most compatible with a cyst. No obstruction. No significant periaortic, mesenteric or pelvic lymphadenopathy. Angiographic portion of this examination shows a satisfactory examination. The abdominal aorta is nor mal in caliber. There is some mild narrowing at the takeoff of the celiac artery. The superior mesent freeman artery is patent. There is a single left renal artery noted. On the right side there is a main r ight renal artery and a second slight anomalously positioned smaller renal artery which arises from t he anterior aspect of the abdominal aorta. No aneurysm or dissection of the aorta. The right lower extremity runoff shows a patent right common, internal and external iliac arteries wi thout significant stenosis. The common femoral, superficial and profunda femoral arteries are normal in appearance. Popliteal artery is patent without significant narrowing and there is a patent trifurc ation and three vessel runoff. On the left side, left common, internal and external iliac arteries are normal in appearance. No sign ificant stenosis of the common femoral, superficial or profunda femoral arteries. The popliteal arter y is patent and there is a patent trifurcation with three vessel runoff to the foot. IMPRESSION: 1. Interstitial fibrotic lung changes seen in the lung bases with honeycombing. 2. Large hiatal hernia. 3. No evidence of abdominal aortic aneurysm or signs for a dissection. There is normal three ves caesar runoff to both lower extremities. POS: TPC
[2018-12-22] MEDS ORDERED: Morphine 4 MG/ML VIAL ONE (16:53)
--- NOTE | 2018-12-22 21:24 | ER ---
DATE OF SERVICE: 12/22/2018 HISTORY OF PRESENT ILLNESS: Ms. Tovar is a 73-year-old woman who since last week when she was in the hospital has had pain in both of her feet actually when she gets down to it. She has chronic pain in both feet, but she has noticed discoloration in her right great toe and lateral foot since last week when she was in the hospital. She has no peripheral vascular disease history. She has no arrhythmia history-although she is currently wearing a rhythm monitor placed by Dr. Gibson last week in the hospital. Her rhythm is normal sinus with a rate of 80 on the monitor currently. She takes aspirin as her only anti-platelet agent at home. She has no other vascular history. PAST MEDICAL HISTORY: 1. Idiopathic pulmonary fibrosis. 2. Dyslipidemia. 3. Hypothyroidism. 4. Degenerative joint disease. PAST SURGICAL HISTORY: 1. Hysterectomy. 2. Appendectomy. 3. Carpal tunnel surgery. 4. Thoracoscopic lung biopsy. 5. Rotator cuff repair. ALLERGIES: 1. ERYTHROMYCIN. 2. PENICILLIN. 3. IODINE. 4. LASIX. SOCIAL HISTORY: She does not use tobacco. REVIEW OF SYSTEMS: Otherwise unremarkable. PHYSICAL EXAMINATION: GENERAL: This is an elderly, very thin appearing woman resting comfortably without real complaint right now in the emergency department. VITAL SIGNS: Her heart rate is 80 and regular. Rhythm is sinus. Blood pressure is 140/72. LUNGS: Have distant breath sounds bilaterally. HEART: Heart rhythm is regular without murmur. ABDOMEN: Soft and nontender. There are no masses. EXTREMITIES: She has no edema. VASCULAR: She has palpable carotid radial, femoral, dorsalis pedis and posterior tibial pulses bilaterally. The right great toe was blue from the metatarsophalangeal joint distally. The lateral dorsal surface of her foot also has an area of blue discoloration. 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 I do not think this is at all related to the sequential compression devices that she had on last week, which she attributes her symptoms to beginning when they began sequential compressions. She may have an atrial fibrillation history-she is currently has a Holter monitor in place and once this is interrogated, we can see if she does have any atrial fibrillation. Regardless, the treatment would not change and I have added Plavix to her home medical regimen. She already has Tylenol No. 3 at home that she uses for pain control. I will see her back next week. Job ID: [id number]
== END 2018-12-22 18:27 | disposition home or self-care (01) ==
LOC: ERS 12:42
DX: I70.90 Unspecified atherosclerosis (principal); M79.671 Pain in right foot; K21.9 Gastro-esophageal reflux disease without esophagitis; E03.9 Hypothyroidism, unspecified; E78.5 Hyperlipidemia, unspecified; Z79.899 Other long term (current) drug therapy
CPT/HCPCS: 75635; 80053; 83605; 84484; 85025; 93005; 96361; 96374; 96375; J1200; J2270; J2930; Q9966; S0028

== ENCOUNTER 2018-12-23 14:42 | Emergency (ER) | payer MEDICARE, BC | END 2018-12-23 17:01 | disposition home or self-care (01) | LOC: ERS 14:42 | DX: I75.021 Atheroembolism of right lower extremity (principal); E78.5 Hyperlipidemia, unspecified; E03.9 Hypothyroidism, unspecified; Z79.891 Long term (current) use of opiate analgesic; Z79.899 Other long term (current) drug therapy | CPT/HCPCS: 99283 ==

== ENCOUNTER 2019-02-13 06:57 | Outpatient (CLI) | payer MEDICARE, BC ==
[2019-02-13 15:19] LABS: Hemoglobin 10.4 g/dL (12.0-16.0); Mean Corpuscular HGB CONC 31.6 g/dL (32.0-36.0); Mean Corpuscular Hemoglobin 24.8 pg (27.0-31.0); Mean Corpuscular Volume 78.6 fL (78.0-98.0); Mean Platelet Volume 8.1 fL (7.4-10.4); Platelet Count 348 thou/uL (130-400); RBC Distribution Width 15.9 % (11.5-14.5); Red Blood Cell (RBC) Count 4.18 mill/uL (4.20-5.40); White Blood Cell (WBC) Count 8.6 thou/uL (4.8-10.8)
[2019-02-13 15:38] LABS: Anion Gap 12 mmol/L (10-20); BUN (Urea Nitrogen) 14 mg/dL (9.8-20.1); Calc. Creatinine Clearance 0 mL/min (70-130); Calcium 9.3 mg/dL (7.8-10.44); Carbon Dioxide 28 mmol/L (23-31); Chloride 101 mmol/L (98-107); Estimated GFR-MDRD 82; Glucose 119 mg/dL (83-110); Potassium 4.5 mmol/L (3.5-5.1); Sodium 136 mmol/L (136-145)
--- NOTE | 2019-02-13 21:28 | EKG ---
Test Reason : Blood Pressure : / mmHG Vent. Rate : 093 BPM Atrial Rate : 093 BPM P-R Int : 132 ms QRS Dur : 076 ms QT Int : 320 ms P-R-T Axes : 037 039 024 degrees QTc Int : 397 ms Normal sinus rhythm RSR' or QR pattern in V1 suggests right ventricular conduction delay Anterior infarct (cited on or before 18-MAY-2018) Abnormal ECG When compared with ECG of 22-DEC-2018 13:32, Borderline criteria for Inferior infarct are no longer Present Confirmed by RUTHIE SNIDER, DR. Najera ([id number]) on 02/13/2019 9:27:57 PM Referred By: BERNADINE Confirmed By:DR. Reinaldo HENDRICKS MD
== END 2019-02-13 06:58 | disposition home or self-care (01) ==
LOC: LABBT 06:57
PROVIDERS: ATTEND Thoracic Surgery (Cardiothoracic Vascular Surgery)
DX: Z01.818 Encounter for other preprocedural examination (principal)
CPT/HCPCS: 80048; 85027; 93005; 93010

== ENCOUNTER 2019-02-13 14:00 | Inpatient (IN) | payer MEDICARE, BC ==
[2019-02-14] MEDS ORDERED: Sodium Chloride 0.9% 100 ML ONE (10:47)
[2019-02-14] MEDS ORDERED: CEFAZOLIN 1 GM VIAL ONE (10:47)
[2019-02-14] MEDS ORDERED: Midazolam HCl 2 mg/2 ml Vial ONE ×2 (10:57→12:45)
[2019-02-14] MEDS ORDERED: Ketamine 50 MG/ML (10ML VIAL) ONE (12:45)
[2019-02-14] MEDS ORDERED: Bupivacaine HCl 0.5%/Epinephrine 1:200,000/PF 30 ml Vial ONE (14:55)
[2019-02-14] MEDS ORDERED: Ondansetron PF 4 MG/2 ML Vial IVP PRN (17:50)
[2019-02-14] MEDS ORDERED: Fentanyl 100 MCG/2 ML VIAL SLOW IVP PRN (17:50)
[2019-02-14] MEDS ORDERED: Acetaminophen 325 MG TAB PO PRN (17:50)
[2019-02-14 18:05] VITALS: BMI 19.1
[2019-02-14] MEDS ORDERED: Gabapentin 100 MG CAP PO SCH (18:45)
[2019-02-14] MEDS: Ipratropium Bromide 0.06% Nasal Inhaler 15ml EA NARE SCH (20:00)
[2019-02-14] MEDS: Temazepam 15 MG CAP PO SCH (20:01)
[2019-02-14] MEDS: Lactinex Tablet PO SCH ×2 (20:02→20:06)
[2019-02-14] MEDS: Saccharomyces boulardii 250 MG CAP PO SCH (20:06)
[2019-02-14] MEDS: Montelukast Sodium 10 mg Tablet PO SCH (20:06)
--- NOTE | 2019-02-14 20:08 | PRG ---
DATE OF SERVICE: 02/14/2019 SUBJECTIVE: Carmelo Tovar has no new complaints from a Pulmonary standpoint. She unfortunately had an embolic event that led to ischemia of her foot, which led to transmetatarsal amputation today. She was examined in the recovery room. She is in no distress. Talking in complete sentences. OBJECTIVE: VITAL SIGNS: She is afebrile. Heart rate is 86, respiratory rate is 19, oximetry is 92 on 3 L, and blood pressure 126/55. HEAD AND NECK: Exam is unremarkable. LUNGS: Remarkable for diffuse dry crackles. HEART: Regular rhythm. S1, S2 are normal. ABDOMEN: Soft and nontender. EXTREMITIES: Left foot was bandaged. Her other foot was warm. IMPRESSION: 1. Embolic event with atrial fibrillation. 2. Idiopathic pulmonary fibrosis, on Ofev. The big issue for her will be getting her moving. When she first developed ischemia of her foot, the ER doctor told her not to walk, so by the time I saw her, she had already been 2-1/2 weeks without ambulation, which was an enormous setback for her from a strength standpoint. We will need to figure out a way to get her into some type rehab environment hopefully and get her strength go back up. She does not have a rapidly progressive formal pulmonary fibrosis, but she clearly clinically has IPF. It is unclear whether or not the Ofev has slowed it down, but she is slowly progressing. We will continue to follow the other physicians. Job ID: [id number]
--- NOTE | 2019-02-14 20:19 | OP ---
DATE OF PROCEDURE: 02/14/2019 PREOPERATIVE DIAGNOSIS: Status post multiple emboli to the right foot with gangrene of the multiple toes on the right foot. POSTOPERATIVE DIAGNOSIS: Status post multiple emboli to the right foot with gangrene of the multiple toes on the right foot. PROCEDURE PERFORMED: Transmetatarsal amputation of the right foot. ANESTHESIA: General endotracheal. ESTIMATED BLOOD LOSS: 150. DESCRIPTION OF PROCEDURE: After consent was obtained, the patient was brought to the operating room, placed in supine position on the operating table. The patient had a previous block placed in the preoperative area. The foot was prepped and draped in usual sterile fashion. A transmetatarsal incision was made, and division of the subcutaneous tissues and musculature were obtained with electrocautery. The metatarsal bones were then divided sharply. Amputation was completed sharply. The posterior flap was cut to appropriate shape and length. Wounds were copiously irrigated and hemostasis ensured. The flap was reapproximated with 0 and 2-0 Vicryl suture. Skin was closed with clips and fluff dressing applied. The patient tolerated the procedure well, was transferred to recovery in stable condition. Job ID: [id number]
[2019-02-14] MEDS: Acetaminophen/Codeine 30-300mg Tablet PO PRN (22:03)
[2019-02-15] MEDS: Acetaminophen/Codeine 30-300mg Tablet PO PRN ×3 (04:59→19:11)
[2019-02-15] MEDS: Levothyroxine Sodium 50 MCG TAB PO SCH (04:59)
[2019-02-15] MEDS: traMADol HCl 50 MG TAB PO PRN ×2 (06:21→13:13)
[2019-02-15] MEDS ORDERED: Mometasone/Formoterol 120 PUFF INHALER INH SCH (06:30)
[2019-02-15] MEDS: Mometasone/Formoterol 120 PUFF INHALER INH SCH ×2 (07:07→18:46)
[2019-02-15] MEDS: Ubidecarenone 50 MG CAP PO SCH (08:59)
[2019-02-15] MEDS: Saccharomyces boulardii 250 MG CAP PO SCH ×2 (09:00→20:32)
[2019-02-15] MEDS: Ascorbic Acid 500 mg Chewable Tablet PO SCH ×2 (09:00→09:30)
[2019-02-15] MEDS ORDERED: Furosemide 20 MG TAB PO SCH (09:00)
[2019-02-15] MEDS: Calcium Carbonate + Vit D 1 TAB PO SCH (09:01)
[2019-02-15] MEDS: Digoxin 0.125 MG TAB PO SCH (09:01)
[2019-02-15] MEDS: Gabapentin 100 MG CAP PO SCH ×3 (09:01→20:33)
[2019-02-15] MEDS: Vit A,C & E/Lutein/Minerals Tablet PO SCH ×2 (09:02→09:29)
[2019-02-15] MEDS: Pantoprazole 40 MG GRANULES PACKET PO SCH (09:02)
[2019-02-15] MEDS: Lactinex Tablet PO SCH ×2 (09:03→20:43)
[2019-02-15] MEDS: Iron Polysaccharides Complex 150 MG CAP PO SCH (09:04)
[2019-02-15] MEDS: Ipratropium Bromide 0.06% Nasal Inhaler 15ml EA NARE SCH ×2 (09:05→20:43)
--- NOTE | 2019-02-15 10:30 | PRG ---
DATE OF SERVICE: 02/15/2019 SUBJECTIVE: Carmelo Tovar did well overnight. She is complaining a little shortness of breath at rest. I have explained to her again that it is imperative that we get her moving. OBJECTIVE: VITAL SIGNS: Blood pressure 106/57, heart rate is 84, respiratory rate is 18. She is afebrile. LUNGS: Still remarkable for crackles. HEART: Regular rhythm. ABDOMEN: Soft. IMPRESSION: Status post transmetatarsal amputation of her toes after an embolic event with atrial fibrillation. We will continue to follow. Job ID: [id number]
[2019-02-15] MEDS: Montelukast Sodium 10 mg Tablet PO SCH (20:33)
[2019-02-15] MEDS: Temazepam 15 MG CAP PO SCH (21:20)
[2019-02-16] MEDS: Acetaminophen/Codeine 30-300mg Tablet PO PRN ×4 (01:28→19:26)
[2019-02-16] MEDS: Levothyroxine Sodium 50 MCG TAB PO SCH (05:27)
[2019-02-16] MEDS ORDERED: Furosemide 20 MG TAB PO PRN (07:08)
[2019-02-16] MEDS ORDERED: diphenhydrAMINE 25 MG CAP PO PRN (07:08)
[2019-02-16] MEDS: Mometasone/Formoterol 120 PUFF INHALER INH SCH ×2 (07:16→19:13)
[2019-02-16] MEDS: Ubidecarenone 50 MG CAP PO SCH (09:09)
[2019-02-16] MEDS: Digoxin 0.125 MG TAB PO SCH (09:09)
[2019-02-16] MEDS: Calcium Carbonate + Vit D 1 TAB PO SCH (09:10)
[2019-02-16] MEDS: Iron Polysaccharides Complex 150 MG CAP PO SCH (09:10)
[2019-02-16] MEDS: Saccharomyces boulardii 250 MG CAP PO SCH (09:10)
[2019-02-16] MEDS: Ascorbic Acid 500 mg Chewable Tablet PO SCH (09:11)
[2019-02-16] MEDS: Gabapentin 300 MG CAP PO SCH ×2 (09:11→15:34)
[2019-02-16] MEDS: Pantoprazole 40 MG GRANULES PACKET PO SCH (09:11)
[2019-02-16] MEDS: Lactinex Tablet PO SCH (09:11)
[2019-02-16] MEDS: Vit A,C & E/Lutein/Minerals Tablet PO SCH (09:11)
[2019-02-16] MEDS: NINTEDANIB PO SCH ×3 (09:12→13:41)
[2019-02-16] MEDS: Ipratropium Bromide 0.06% Nasal Inhaler 15ml EA NARE SCH (09:14)
[2019-02-16 10:37] LABS: Hemoglobin 10.2 g/dL (12.0-16.0); Platelet Count 316 thou/uL (130-400)
[2019-02-16 10:45] LABS: Calc. Creatinine Clearance 64 mL/min (70-130); Estimated GFR-MDRD Greater than 90
--- NOTE | 2019-02-16 16:50 | PRG ---
DATE OF SERVICE: 02/16/2019 SUBJECTIVE: Carmelo Tovar has no complaints other than pain as expected. OBJECTIVE: VITAL SIGNS: She is afebrile. Heart rate 80, respiratory rate 18, oximetry is 98%, and blood pressure 118/61. Remainder exam is unchanged. IMPRESSION: 1. Idiopathic pulmonary fibrosis, on Ofev. 2. Embolic event to her foot leading to transmetatarsal amputation. PLAN: Continue supportive care with physical therapy. Job ID: [id number]
[2019-02-16 19:05] VITALS: BP 125/68; TEMP 98.2
--- NOTE | 2019-02-16 23:41 | DIS ---
DATE OF ADMISSION: 02/14/2019 DATE OF DISCHARGE: 02/16/2019 PROCEDURES PERFORMED: Right transmetatarsal amputation. DESCRIPTION OF HOSPITAL STAY: Ms. Tovar underwent an elective right transmetatarsal amputation. Her wound is clean and dry and healing nicely. She is being transferred to rehab for further strengthening prior to going home. Discharge medications are unchanged from her admission. She is at a touchdown weightbearing status on the right. Medicines have been reconciled in the computer and signed. Job ID: [id number]
[2019-02-17] MEDS ORDERED: Apixaban 5 MG TAB PO SCH (09:00)
[2019-02-17] MEDS ORDERED: LIVALO 1 MG PO SCH (21:00)
== END 2019-02-16 19:36 | DRG 241 ==
LOC: SURG A 02-14 09:13 → EDSTATUS 02-14 14:00 → 2NO 02-14 17:09
PROVIDERS: ADMIT Thoracic Surgery (Cardiothoracic Vascular Surgery); ATTEND Thoracic Surgery (Cardiothoracic Vascular Surgery)
PROC: 0Y6M0Z9 Detachment at Right Foot, Partial 1st Ray, Open Approach (ICD-10-PCS; principal; 2019-02-14)
PROC: 0Y6M0ZB Detachment at Right Foot, Partial 2nd Ray, Open Approach (ICD-10-PCS; 2019-02-14)
PROC: 0Y6M0ZD Detachment at Right Foot, Partial 4th Ray, Open Approach (ICD-10-PCS; 2019-02-14)
PROC: 0Y6M0ZF Detachment at Right Foot, Partial 5th Ray, Open Approach (ICD-10-PCS; 2019-02-14)
DX: I96 Gangrene, not elsewhere classified (principal); J84.112 Idiopathic pulmonary fibrosis; E03.9 Hypothyroidism, unspecified; I10 Essential (primary) hypertension; E78.2 Mixed hyperlipidemia; I48.91 Unspecified atrial fibrillation; K21.0 Gastro-esophageal reflux disease with esophagitis; Z90.710 Acquired absence of both cervix and uterus; Z79.01 Long term (current) use of anticoagulants; Z79.899 Other long term (current) drug therapy; Z90.49 Acquired absence of other specified parts of digestive tract; Z91.041 Radiographic dye allergy status; Z91.040 Latex allergy status; Z88.8 Allergy status to other drugs, medicaments and biological substances
CPT/HCPCS: 36415; 80048; 82565; 85014; 85018; 85027; 85049; 88305; 93005; 93010; J0670; J0690; J2250; J7050

== ENCOUNTER 2019-03-05 11:54 | Outpatient (CLI) | payer MEDICARE, BC ==
--- NOTE | 2019-03-05 12:22 | RAD ---
EXAM: Chest Two Views 03/05/2019 12:19 PM HISTORY: Dyspnea COMPARISON: December 14, 2018. FINDINGS: Heart: Normal Pulmonary vessels: Heart size is normal. Costophrenic angles: No pleural effusion is evident. Lungs: There are scattered areas of interstitial prominence likely related to underlying fibrosis. Pneumothorax: None Osseous structures: No acute osseous abnormality. There is a moderate-sized hiatal hernia which is stable. IMPRESSION: Stable fibrotic change of the lungs. Stable moderate hiatal hernia.
== END 2019-03-05 11:55 | disposition home or self-care (01) ==
LOC: RAD 11:54
PROVIDERS: ATTEND Internal Medicine Critical Care Medicine
DX: R06.00 Dyspnea, unspecified (principal); R91.8 Other nonspecific abnormal finding of lung field
CPT/HCPCS: 71046

== ENCOUNTER 2019-04-20 09:55 | Outpatient (CLI) | payer MEDICARE, BC ==
--- NOTE | 2019-04-20 10:16 | RAD ---
XR Chest Pa Lat @ [facility] History: [Dyspnea] Comparison: Radiograph March 05, 2019 Findings: Large sliding hiatal hernia. Diffuse abnormal increased initial markings with apical basal gradient with peripheral predominance. Heart size is enlarged. No pneumothorax. No acute osseous abnormality. Impression: Severe interstitial lung disease likely pulmonary fibrosis.
== END 2019-04-20 09:56 | disposition home or self-care (01) ==
LOC: RAD 09:55
PROVIDERS: ATTEND Internal Medicine Critical Care Medicine
DX: R06.00 Dyspnea, unspecified (principal); J84.9 Interstitial pulmonary disease, unspecified
CPT/HCPCS: 71046

== ENCOUNTER 2019-04-26 19:52 | Inpatient (IN) | payer MEDICARE, BC ==
--- NOTE | 2019-04-26 20:42 | RAD ---
EXAM: Single view of the chest HISTORY: Dyspnea COMPARISON: 12/11/2018 FINDINGS: Single view of the chest shows a normal sized cardiomediastinal silhouette. Increased inte rstitial markings are present. There is a large hiatal hernia. There is no evidence of consolidation, mass, or pleural effusion. The bones are unremarkable. IMPRESSION: Large hiatal hernia
[2019-04-26 20:44] LABS: Hemoglobin 9.3 g/dL (12.0-16.0); Mean Corpuscular Hemoglobin 22.8 pg (27.0-31.0); Mean Corpuscular Volume 79.4 fL (78.0-98.0); Red Blood Cell (RBC) Count 4.07 mill/uL (4.20-5.40); White Blood Cell (WBC) Count 14.7 thou/uL (4.8-10.8)
[2019-04-26 20:58] LABS: #Monocytes 0.9 thou/uL (0.11-0.59); #Neutrophils 12.7 thou/uL (1.40-6.50); %Basophils 0.2 % (0.0-1.0); %Eosinophils 0.2 % (0.0-10.0); %Lymphocytes 6.9 % (21.0-51.0); %Neutrophils 86.6 % (42.0-75.0); Anisocytosis SLIGHT = 6-15 cells (100X) (0-5/hpf); Hypochromia SLIGHT = 6-15 cells (100X) (0-5/hpf); MDiff Complete? YES; Mean Corpuscular HGB CONC 28.7 g/dL (32.0-36.0); Mean Platelet Volume 9.4 fL (7.4-10.4); Platelet Count 313 thou/uL (130-400); Platelet Morphology Comment Appears Adequate; Polychromasia SLIGHT = 2-3 cells (100X) (0-2/hpf); RBC Distribution Width 18.2 % (11.5-14.5)
[2019-04-26 21:10] LABS: Bilirubin Negative (Negative); Blood, Urine Negative (Negative); Clarity CLOUDY (Clear); Glucose, Urine (Dipstick) Negative (Negative); Leukocyte Negative (Negative); Nitrite Negative (Negative); Protein, Urine (Dipstick) Trace mg/dL (Neg-Trace); Urobilinogen 0.2 mg/dL (0.2-1.0)
[2019-04-26 21:24] LABS: ALT (SGPT) 120 U/L (8-55); AST (SGOT) 174 U/L (5-34); Albumin 3.4 g/dL (3.4-4.8); Alkaline Phosphatase 115 U/L (40-150); Anion Gap 28 mmol/L (10-20); BUN (Urea Nitrogen) 68 mg/dL (9.8-20.1); Bilirubin, Total 0.6 mg/dL (0.2-1.2); CK (CPK) 297 U/L (29-168); Calc. Creatinine Clearance 0 mL/min (70-130); Calcium 9.5 mg/dL (7.8-10.44); Carbon Dioxide 15 mmol/L (23-31); Chloride 101 mmol/L (98-107); Estimated GFR-MDRD 35; Globulin 3.2 g/dL (2.4-3.5); Glucose 204 mg/dL (83-110); Potassium 5.2 mmol/L (3.5-5.1); Protein, Total 6.6 g/dL (6.0-8.3); Sodium 139 mmol/L (136-145)
[2019-04-26] MEDS ORDERED: Furosemide 40 MG/4 ML VIAL ONE (21:26)
[2019-04-26 21:42] LABS: CKMB 25.7 ng/mL (0-6.6)
[2019-04-26] MEDS ORDERED: Vancomycin HCl 1 GM in Premix Bag 1 BAG IVPB SCH (23:00)
[2019-04-26] MEDS ORDERED: [UNRECOGNIZED DRUG - REMARK] IVPB PRN (23:40)
[2019-04-26] MEDS ORDERED: Bisacodyl 5 MG TAB PO PRN (23:41)
[2019-04-26] MEDS ORDERED: Piperacillin/Tazobactam 4.5 GM in Sodium Chloride 0.9% 100 ML IVPB SCH (23:59)
[2019-04-27 00:37] LABS: Troponin I 2.368 ng/mL (< 0.028)
[2019-04-27] MEDS: Sodium Chloride 0.9% 1,000 ML IV SCH ×2 (00:49→14:47)
--- NOTE | 2019-04-27 00:53 | HP ---
CHIEF COMPLAINT: Respiratory distress. HISTORY OF PRESENT ILLNESS: Ms. Tovar is a pleasant 73-year-old lady who was seen at [facility] following transfer from emergency room at [facility] in [place]. She lives at the [place] and has home health through [facility]. The patient is currently on BiPAP, able to provide some history. Collateral history was obtained from her son by the bedside, review of medical records, and discussion with emergency room physician. Ms. Tovar was hospitalized at [facility] from February 14 to of this year for elective right transmetatarsal amputation by Dr. Mendoza. Her wheat combine driver is Dr. Gibson and her balance wheel screw hole tapper is Dr. Cueto. Son reports that 2 days ago her oxygen tubing became kinked. She had shortness of breath over the last couple of days. She was also weak overall. She was evaluated by home health nurse yesterday and today. She was found to be hypotensive today. She was recommended emergency room evaluation. She was taken to [facility] Emergency Room. There, she was diagnosed with respiratory distress, weakness, sepsis, acidemia, and elevated troponin-I. She was transferred to the emergency room at [facility] since her specialists work at this hospital. She also reportedly vomited on the way to emergency room at [facility]. She reports that she is feeling better now, she is on BiPAP machine. She denies any fevers or chills. She reports shortness of breath, which is getting better. She denies any chest pain. She denies any abdominal pain. REVIEW OF SYSTEMS: All other systems reviewed and found to be negative. PAST MEDICAL HISTORY: Idiopathic pulmonary fibrosis, gastroesophageal reflux disease, hypothyroidism, nonalcoholic fatty liver disease, hiatal hernia, degenerative joint disease. PAST SURGICAL HISTORY: Right rotator cuff repair, appendectomy, hysterectomy, carpal tunnel release, left thoracoscopy with wedge biopsy of the lung, and right transmetatarsal amputation. SOCIAL HISTORY: No history of tobacco use, alcohol use, or recreational drug use. FAMILY HISTORY: Mother from complication of cerebral aneurysm. Father from complication of congestive heart failure in his 70s. Brother of prostate cancer. ALLERGIES: AZITHROMYCIN, IODINE, LATEX. PSYCHIATRIC HISTORY: Anxiety and depression. CURRENT MEDICATIONS: 1. Gabapentin 100 mg 3 times a day. 2. Tylenol No. 3 p.r.n. 3. Dulera one puff 2 times a day. 4. Coenzyme Q10 100 mg daily. 5. Lactobacillus acidophilus 1 capsule 2 times a day. 6. Ecotrin 81 mg daily. 7. Calcium carbonate/vitamin D3 one tablet daily. 8. Livalo 0.5 mg at bedtime. 9. Protonix 40 mg daily. 10. Toprol-XL 50 mg daily. 11. Levothyroxine 50 mcg daily. 12. Lasix 20 mg daily. 13. Ocuvite 1 tablet daily. 14. Ofev 100 mg 2 times a day. 15. Ipratropium inhalation as needed. 16. Vitamin C 500 mg daily. 17. Restoril 30 mg daily. 18. Ferrous sulfate 325 mg daily. 19. Singulair 10 mg at bedtime. 20. Florastor 250 mg 2 times a day. 21. Plavix 75 mg daily. PHYSICAL EXAMINATION: GENERAL: On examination, Ms. Tovar is sleepy, but arousable, not in acute distress. VITAL SIGNS: Blood pressure is 117/70, pulse 121, respiratory rate 35, and oxygen saturation 95% on BiPAP. She is afebrile. EYES: No scleral icterus, no conjunctival pallor. ENT: Dry mucosal membranes. No oropharyngeal erythema or exudates. NECK: Supple, nontender, trachea is midline. RESPIRATORY: Accessory muscles of breathing are active. Chest wall movements are symmetric bilaterally. She has bilateral crackles. CARDIOVASCULAR: S1 and S2 are heard, tachycardic and regular. Peripheral pulses palpable. No carotid bruit. ABDOMEN: Soft, nontender, bowel sounds heard, no hepatomegaly, no splenomegaly. MUSCULOSKELETAL: Status post right transmetatarsal amputation. SKIN: No rashes or subcutaneous nodules. LYMPHATIC: No cervical lymphadenopathy. PSYCHIATRIC: Normal mood, normal affect, the patient is oriented to person, place, and time. LABORATORY DATA: Ms. Tovar's labs and investigations were reviewed. I reviewed her electrocardiogram, which shows sinus tachycardia and incomplete right bundle-branch block, no ST elevations to suggest acute coronary syndrome. I also reviewed her chest x-ray, which showed a large hiatal hernia, no pulmonary infiltrates. She has leukocytosis with 14,700 white cells, of which 86.6% are neutrophils, normocytic anemia with hemoglobin 9.3, normal platelet count, normal sodium, elevated potassium of 5.2, decreased carbon dioxide of 15, elevated anion gap of 28, elevated lactic acid level of 12.8, elevated blood urea nitrogen of 68, elevated creatinine of 1.45, last known creatinine 0.63 on February 26, 2019, elevated AST of 174, elevated ALT of 120, normal alkaline phosphatase, normal total bilirubin, elevated CK level of 297, elevated troponin I of 1.938, elevated BNP of 2300, and normal albumin. Urinalysis is positive for trace ketones, negative for nitrite and leukocyte esterase. ASSESSMENT AND PLAN: Ms. Tovar is a pleasant 73-year-old lady who was seen at [facility] on April 26, 2019. Her problem list includes: 1. Acute hypoxic respiratory failure: Ms. Tovar is presenting with acute hypoxic respiratory failure. She is currently being treated with BiPAP and reports significant improvement. She will be admitted to the [facility] for further management. 2. Sepsis: Her presentation meets the criteria for sepsis, source unclear as yet. There is also question of aspiration en route to emergency room at [facility]. She has been started on vancomycin and Zosyn, which I will continue. We will await blood cultures. 3. Elevated troponin: The patient denies any chest pain. Elevated troponin is most likely secondary to demand ischemia. We will request Cardiology Service input. 4. Acute kidney injury: We will provide gentle rehydration and recheck her creatinine level. 5. Abnormal liver function tests: Secondary to septic shock versus infection in the biliary tree. She also has elevated CK, the isolated transaminitis could be secondary to rhabdomyolysis. We will recheck LFTs. We will recheck CK level. 6. Gastroesophageal reflux disease: Appears to be stable. 7. Hypothyroidism: Appears to be stable. Many thanks for allowing me to participate in your patient's care. Please feel free to contact me with any questions or concerns. LEVEL OF RISK: High. LEVEL OF COMPLEXITY: High. Job ID: [id number] MTDD
[2019-04-27 03:12] LABS: ALT (SGPT) 261 U/L (8-55); AST (SGOT) 322 U/L (5-34); Albumin 3.9 g/dL (3.4-4.8); Alkaline Phosphatase 123 U/L (40-150); Anion Gap 18 mmol/L (10-20); BUN (Urea Nitrogen) 66 mg/dL (9.8-20.1); Bilirubin, Total 0.6 mg/dL (0.2-1.2); CK (CPK) 374 U/L (29-168); Calc. Creatinine Clearance 35 mL/min (70-130); Calcium 10.2 mg/dL (7.8-10.44); Carbon Dioxide 28 mmol/L (23-31); Chloride 100 mmol/L (98-107); Estimated GFR-MDRD 47; Globulin 3.9 g/dL (2.4-3.5); Glucose 152 mg/dL (83-110); Protein, Total 7.8 g/dL (6.0-8.3); Sodium 142 mmol/L (136-145)
[2019-04-27 03:14] LABS: Troponin I 2.752 ng/mL (< 0.028)
[2019-04-27] MEDS: Piperacillin/Tazobactam 2.25 GM in Sodium Chloride 0.9% 100 ML IVPB SCH ×4 (05:31→23:38)
[2019-04-27] MEDS ORDERED: Pantoprazole 40 MG GRANULES PACKET PO SCH (09:00)
[2019-04-27] MEDS: Apixaban 5 MG TAB PO SCH ×2 (09:13→20:23)
[2019-04-27] MEDS: Gabapentin 300 MG CAP PO SCH ×3 (09:13→20:23)
[2019-04-27] MEDS: Digoxin 0.125 MG TAB PO SCH (09:13)
[2019-04-27] MEDS: Furosemide 20 MG TAB PO SCH (10:45)
[2019-04-27] MEDS: Ascorbic Acid 500 mg Chewable Tablet PO SCH (10:45)
[2019-04-27] MEDS: Saccharomyces boulardii 250 MG CAP PO SCH ×2 (10:46→20:23)
[2019-04-27] MEDS: Ubidecarenone 50 MG CAP PO SCH (10:46)
--- NOTE | 2019-04-27 11:01 | CON ---
DATE OF CONSULTATION: 04/27/2019 REASON FOR CONSULTATION: Acute on chronic respiratory failure. The following encompassed 70 minutes of time, of that time, greater than 50% was spent with the patient and/or the patient's unit in the hospital. HISTORY OF PRESENT ILLNESS: Ms. Tovar is a 73-year-old female with idiopathic pulmonary fibrosis. She is usually on home oxygen at 3 L nasal cannula, but has had to increase up to 5 L over the last couple of days. About 2 days ago, she had an episode where her oxygen tubing got kinked and she has been decompensating ever since. She was taken to the [facility] Emergency Room, where she was stabilized with BiPAP and sent over here because she has a pre-existing relationship with Dr. Cueto. She has been on BiPAP overnight and is somewhat better. PAST MEDICAL HISTORY: 1. IPF. 2. Gastroesophageal reflux. 3. Hiatal hernia. 4. Fatty liver. 5. Hypothyroidism. 6. DJD. PAST SURGICAL HISTORY: 1. Rotator cuff repair. 2. Appendectomy. 3. Hysterectomy. 4. Carpal tunnel release. 5. Left thoracoscopy with wedge biopsy. 6. Transmetatarsal amputation. SOCIAL HISTORY: Nonsmoker. Does not consume alcohol. FAMILY MEDICAL HISTORY: Remarkable for cerebral aneurysm, congestive heart failure, and prostate cancer. ALLERGIES: AZITHROMYCIN, IODINE, AND LATEX. PSYCHIATRIC HISTORY: Remarkable for anxiety and depression. OUTPATIENT MEDICATIONS: These were reviewed and listed under the home medication section of [facility]. Of note, she was not on steroids prior to admission. PHYSICAL EXAMINATION: VITAL SIGNS: Temperature 98.2, pulse 121, blood pressure 107/67, O2 saturation upper 80s. GENERAL: She is currently resting on BiPAP, looks somewhat uncomfortable. HEENT: Unremarkable. NECK: No adenopathy or JVD. LUNGS: She has bilateral harsh inspiratory crackles. CARDIAC: S1 and S2. Regular. ABDOMEN: Soft and nontender. EXTREMITIES: No clubbing, cyanosis, or edema. LABORATORY DATA: White blood cell count 14.7, hematocrit 32.3, and platelet count 313. Sodium 142, potassium 4, BUN 66, creatinine 1.1, and glucose 152. CPK 374. Lactate was 6.0. Troponin 2.75. IMAGING DATA: Her x-ray shows chronic bilateral interstitial changes. She has a large hiatal hernia. Encompasses probably a fourth of her mediastinum. ASSESSMENT: 1. Idiopathic pulmonary fibrosis with exacerbation. 2. Sepsis. 3. Acute on chronic respiratory failure. PLAN: 1. High-flow oxygen alternating with BiPAP as needed. 2. Add steroids. 3. Continue antibiotics. 4. I spoke with the patient's son. We will follow. Prognosis guarded. Job ID: [id number]
--- NOTE | 2019-04-27 12:25 | PDOC.PN ---
- Subjective Encounter Start Date: 04/27/19 Encounter Start Time: 07:15 Patient seen and examined. No new complaints. No overnight events - Objective Resuscitation Status - Order Detail: 04/26/19 23:41 Resuscitation Status Routine Resuscitation Status: PRTL: Cardiac only Discussed with: son JOE Reviewed: Yes Vital Signs & Weight: Vital Signs (12 hours) Temp Pulse Pulse Ox 04/27/19 11:00 97.4 F L 04/27/19 10:59 93 L 04/27/19 09:13 122 H 04/27/19 07:33 95 04/27/19 03:52 98.2 F 04/27/19 02:15 122 H Weight Weight 112 lb 8 oz Most Recent Monitor Data Heart Rate from ECG 121 NIBP 107/67 NIBP BP-Mean 80 Respiration from ECG 37 SpO2 87 I&O: 04/26/19 04/27/19 04/28/19 06:59 06:59 06:59 Intake Total 511 Output Total 600 Balance -89 Result Diagrams: 04/26/19 20:32 04/27/19 02:34 Radiology Reviewed by me: Yes EKG Reviewed by me: Yes Phys Exam - Physical Examination Constitutional: NAD HEENT: PERRLA, moist MMs, sclera anicteric Neck: no JVD, supple coarse rales+ Cardiovascular: RRR, no significant murmur, no rub Gastrointestinal: soft, non-tender, no distention, positive bowel sounds Musculoskeletal: no edema, pulses present Neurological: non-focal, normal sensation Lymphatic: no nodes Psychiatric: normal affect, A&O x 3 Skin: no rash, normal turgor Dx/Plan (1) Acute on chronic respiratory failure with hypoxemia Code(s): J96.21 - ACUTE AND CHRONIC RESPIRATORY FAILURE WITH HYPOXIA Status: Acute (2) Abnormal LFTs Code(s): R94.5 - ABNORMAL RESULTS OF LIVER FUNCTION STUDIES Status: Acute (3) Lactic acidosis Code(s): E87.2 - ACIDOSIS Status: Acute (4) Type [address] elevation Code(s): I21.A1 - MYOCARDIAL INFARCTION TYPE 2 Status: Acute (5) Anxiety and depression Code(s): F41.9 - ANXIETY DISORDER, UNSPECIFIED; F32.9 - MAJOR DEPRESSIVE DISORDER, SINGLE EPISODE, UNSPECIFIED Status: Chronic (6) Dyslipidemia Code(s): E78.5 - HYPERLIPIDEMIA, UNSPECIFIED Status: Chronic (7) GERD (gastroesophageal reflux disease) Code(s): K21.9 - GASTRO-ESOPHAGEAL REFLUX DISEASE WITHOUT ESOPHAGITIS Status: Chronic (8) Hypothyroidism Code(s): E03.9 - HYPOTHYROIDISM, UNSPECIFIED Status: Chronic (9) Protein-calorie malnutrition, moderate Code(s): E44.0 - MODERATE PROTEIN-CALORIE MALNUTRITION Status: Chronic (10) Pulmonary fibrosis Code(s): J84.10 - PULMONARY FIBROSIS, UNSPECIFIED Status: Chronic - Plan cont current plan of care, plan discussed w/ family, continue antibiotics, respiratory therapy * discussed with son * currently on bipap, without that she drops her saturation * cardiology and pulmonary consulted * prognosis is guarded * medication reviewed as below * symptomatic treatment. * currently on empiric antibiotics and IV steroid Review of Systems - Review of Systems Constitutional: weakness. negative: fever, chills, sweats, malaise, other ENT: negative: Ear Pain, Ear Discharge, Nose Pain, Nose Discharge, Nose Congestion, Mouth Pain, Mouth Swelling, Throat Pain, Throat Swelling, Other Respiratory: Cough, Shortness of Breath, SOB with Excertion. negative: Dry, Hemoptysis, Pleuritic Pain, Sputum, Wheezing Cardiovascular: negative: chest pain, palpitations, orthopnea, paroxysmal nocturnal dyspnea, edema, light headedness, other Gastrointestinal: negative: Nausea, Vomiting, Abdominal Pain, Diarrhea, Constipation, Melena, Hematochezia, Other Genitourinary: negative: Dysuria, Frequency, Incontinence, Hematuria, Retention , Other Musculoskeletal: negative: Neck Pain, Shoulder Pain, Arm Pain, Back Pain, Hand Pain, Leg Pain, Foot Pain, Other - Medications/Allergies Allergies/Adverse Reactions: Allergies Allergy/AdvReac Type Severity Reaction Status Date / Time acetaminophen [From Percocet] Allergy Verified 04/26/19 22:22 azithromycin [From Zithromax] Allergy Verified 02/14/19 17:48 iodine Allergy Verified 02/14/19 17:48 latex Allergy Rash Verified 02/14/19 17:48 oxycodone Allergy Verified 04/26/19 22:22 tramadol Allergy Verified 04/26/19 22:22 Medications: Current Medications Apixaban (Eliquis) 5 mg PO BID [facility] Last Admin: 04/27/19 09:13 Dose: 5 mg Ascorbic Acid (Vitamin C) 500 mg PO DAILY [facility] Last Admin: 04/27/19 10:45 Dose: Not Given Bisacodyl (Dulcolax) 10 mg PO DAILYPRN PRN PRN Reason: Constipation Coenzyme Q10 (Coenzyme Q10) 100 mg PO DAILY [facility] Last Admin: 04/27/19 10:46 Dose: Not Given Digoxin (Lanoxin) 0.125 mg PO DAILY [facility] Last Admin: 04/27/19 09:13 Dose: 0.125 mg Furosemide (Lasix) 20 mg PO QAM [facility] Last Admin: 04/27/19 10:45 Dose: Not Given Gabapentin (Neurontin) 300 mg PO TID [facility] Last Admin: 04/27/19 09:13 Dose: 300 mg Vancomycin HCl 500 mg/ Sodium (Chloride) 100 mls @ 100 mls/hr IVPB Q24HR [facility] Piperacillin Sod/Tazobactam (Sod 2.25 gm/ Sodium Chloride) 100 mls @ 200 mls/ hr IVPB Q6HR [facility] Last Admin: 04/27/19 05:31 Dose: 100 mls Sodium Chloride (Normal Saline 0.9%) 1,000 mls @ 70 mls/hr IV .[id number] [facility] Last Admin: 04/27/19 00:49 Dose: 1,000 mls Levothyroxine Sodium (Synthroid) 50 mcg PO 0600 [facility] Methylprednisolone Sodium Succinate (Solu-Medrol) 40 mg IVP Q6HR [facility] Metoprolol Succinate (Toprol Xl) 50 mg PO DAILY [facility] Last Admin: 04/27/19 09:13 Dose: 50 mg Miscellaneous Medication (Pharmacy To Dose) 1 each IVPB PRN PRN PRN Reason: Pharmacy to dose Mometasone Furoate/Formoterol Fumar (Dulera 200 Mcg/5 Mcg Inhaler) 2 puff INH BID-RT [facility] Montelukast Sodium (Singulair) 10 mg PO HS [facility] Non-Formulary Medication (Nintedanib Esylate [Ofev]) 150 mg PO BID [facility] Pantoprazole Sodium (Protonix) 40 mg PO DAILY [facility] Last Admin: 04/27/19 10:45 Dose: Not Given Saccharomyces Boulardii (Florastor) 250 mg PO BID [facility] Last Admin: 04/27/19 10:46 Dose: Not Given Simvastatin (Zocor) 5 mg PO HS [facility] Sodium Chloride (Flush - Normal Saline) 10 ml IVF Q12HR [facility] Last Admin: 04/27/19 09:14 Dose: 10 ml Sodium Chloride (Flush - Normal Saline) 10 ml IVF PRN PRN PRN Reason: Saline Flush Temazepam (Restoril) 15 mg PO HS [facility]
[2019-04-27] MEDS: methylPREDNISolone Sod Succ 40 MG VIAL IVP SCH ×3 (12:28→23:38)
[2019-04-27] MEDS: Mometasone/Formoterol 120 PUFF INHALER INH SCH (18:43)
[2019-04-27] MEDS: Simvastatin 5 MG TAB PO SCH (20:23)
[2019-04-27] MEDS: Montelukast Sodium 10 mg Tablet PO SCH (20:23)
[2019-04-27] MEDS: Temazepam 15 MG CAP PO SCH (20:23)
[2019-04-27] MEDS: Vancomycin HCl 500 MG in Sodium Chloride 0.9% 100 ML IVPB SCH (20:43)
--- NOTE | 2019-04-27 21:07 | CON ---
DATE OF CONSULTATION: 04/27/2019 REASON FOR CONSULTATION: Elevated troponin. PRIMARY CARE PROVIDER: Dr. Herve Hart. PRIMARY LOG HOOKER: Dr. Edd Gibson. HISTORY OF PRESENT ILLNESS: Ms. Tovar is a very pleasant 73-year-old woman, who appears to have a pulmonary fibrosis. She recently presented with respiratory distress. She was seen and evaluated by Dr. Eliot Edge. She has been placed on high-flow oxygen. In the interim, she had troponins drawn and there were elevated. She has had an angiogram performed by Dr. Edd Gibson. This was performed in 2016. She was not found to have significant underlying coronary artery disease. Her LVEF at that time was 55% to 60%. PAST MEDICAL HISTORY: 1. Idiopathic pulmonary fibrosis. 2. Renal insufficiency. 3. Acid reflux. 4. Elevated LFTs. 5. Hypothyroidism. 6. Hyperlipidemia. 7. Appendectomy. 8. Hysterectomy. 9. Atrial fibrillation. FAMILY HISTORY: Negative for CAD. SOCIAL HISTORY: No current tobacco or alcohol use. ALLERGIES: PENICILLIN AND AZITHROMYCIN. HOME MEDICATIONS: Include; 1. Livalo. 2. Ipratropium. 3. Iron. 4. Florastor. 5. Lasix. 6. Pantoprazole. 7. Lactobacillus. 8. Metoprolol. 9. Vitamin C. 10. Ecotrin. 11. CoQ10. 12. Calcium. 13. Ocuvite. 14. Singulair. 15. Synthroid. 16. Gabapentin. 17. Eliquis. REVIEW OF SYSTEMS: A 10-point review of systems is reviewed and as above, otherwise negative. PHYSICAL EXAMINATION: GENERAL: Patient is a pleasant woman, who is in no acute distress. The patient appears their stated age. She does appear fatigued. VITAL SIGNS: Blood pressure 118/71, pulse 120, respirations 20. NEUROLOGIC: The patient is alert and oriented x3 with no focal neurologic deficits. HEENT: Sclerae without icterus. Mouth has moist mucous membranes with normal pallor. NECK: No JVD. Carotid upstroke brisk. No bruits bilaterally. LUNGS: Clear to auscultation with unlabored respirations. BACK: No scoliosis or kyphosis. CARDIAC: Regular rate and rhythm with normal S1 and S2. No S3 or S4 noted. No significant rubs, murmurs, thrills, or gallops noted throughout the precordium. PMI is not displaced. There is no parasternal heave. ABDOMEN: Soft, nontender, nondistended. No peritoneal signs present. No hepatosplenomegaly. No abnormal striae. EXTREMITIES: 2+ femoral and 2+ dorsalis pedis pulses. No cyanosis, clubbing, or edema. SKIN: No gross abnormalities. PERTINENT LABORATORY DATA: Peak troponin 2.7, creatinine 1.13 with a GFR 47. IMPRESSION: 1. Elevated troponin. 2. Respiratory distress. 3. Idiopathic pulmonary fibrosis. RECOMMENDATIONS: At this point, the patient is being treated for a sepsis like illness. She is on antibiotic therapy. Her increased heart rate may be related to a recent sepsis in addition to hypoxia from idiopathic pulmonary fibrosis. Her elevated troponin also likely related to demand ischemia and type-2 myocardial infarction. At this point, we will continue conservative means and measures. Continue digoxin in addition to metoprolol. Continue Eliquis. Job ID: [id number]
[2019-04-28] MEDS: Piperacillin/Tazobactam 2.25 GM in Sodium Chloride 0.9% 100 ML IVPB SCH ×4 (05:36→23:50)
[2019-04-28] MEDS: methylPREDNISolone Sod Succ 40 MG VIAL IVP SCH ×4 (05:36→23:49)
[2019-04-28] MEDS: Levothyroxine Sodium 50 MCG TAB PO SCH (05:36)
[2019-04-28] MEDS: Mometasone/Formoterol 120 PUFF INHALER INH SCH ×2 (07:14→18:40)
--- NOTE | 2019-04-28 08:22 | PDOC.CTH ---
Cardiology Progress Note - Subjective Appears imprvove vs yesterday. More lucid this am and not as fatigued. - Objective Vital Signs Temp Pulse Ox 04/28/19 07:14 96 04/28/19 07:12 97.4 F L 04/28/19 04:53 97.8 F 04/28/19 03:54 97.5 F L 04/27/19 23:00 96.0 F L Admit Weight 112 lb 8 oz Weight 112 lb 8 oz 04/27/19 04/28/19 04/29/19 06:59 06:59 06:59 Intake Total 511 2972 Output Total 600 1100 Balance -89 1872 - Physical Examination General/Neuro: NAD Neck: carotid US brisk, no JVD present Lungs: other: (fine crackels noted bilaterally) Heart: RRR Abdomen: NT/ND, soft Extremities: + femoral B - Labs Result Diagrams: 04/26/19 20:32 04/27/19 02:34 Troponin/CKMB CK-MB (CK-2) 25.7 ng/mL (0-6.6) H* 04/26/19 20:32 Troponin I 2.752 ng/mL (< 0.028) H* 04/27/19 02:34 - Assessment/Plan Respiratory distress on high flow O2 Sepsis IPF Previous h/o Afib On ACT Abx High flow O2 Recnet echo with normal EF Slowly improving No further CV recommendations Dr. Gibson to assume care on Tuesday
[2019-04-28] MEDS ORDERED: Simethicone Chewable 80 MG TAB PO PRN (08:33)
[2019-04-28] MEDS: Ubidecarenone 50 MG CAP PO SCH (08:43)
[2019-04-28] MEDS: Ascorbic Acid 500 mg Chewable Tablet PO SCH (08:44)
[2019-04-28] MEDS: Gabapentin 300 MG CAP PO SCH ×3 (08:44→20:41)
[2019-04-28] MEDS: Saccharomyces boulardii 250 MG CAP PO SCH ×2 (08:44→20:42)
[2019-04-28] MEDS: Digoxin 0.125 MG TAB PO SCH (08:44)
[2019-04-28] MEDS: Apixaban 5 MG TAB PO SCH ×2 (08:44→20:41)
[2019-04-28] MEDS: Furosemide 20 MG TAB PO SCH (08:45)
[2019-04-28] MEDS: Sodium Chloride 0.9% 1,000 ML IV SCH ×2 (08:48→20:43)
--- NOTE | 2019-04-28 10:37 | PRG ---
DATE OF SERVICE: 04/28/2019 SUBJECTIVE: She says she feels a little better today. She is on a high-flow oxygen. She says she prefers that versus the BiPAP. OBJECTIVE: VITAL SIGNS: On examination, temperature 97.4, pulse 109, blood pressure 105/74, and O2 saturation 96%. HEENT: Unremarkable. NECK: No JVD. LUNGS: Diffuse crackles bilaterally. CARDIAC: S1 and S2. Slightly tachycardic. ABDOMEN: Soft and nontender. EXTREMITIES: Severe muscle wasting. LABORATORY DATA: No new labs were obtained today. ASSESSMENT: 1. Idiopathic pulmonary fibrosis with exacerbation. 2. Sepsis. 3. Acute on chronic hypoxic respiratory failure. PLAN: 1. Continue steroids, high-flow oxygen, and antibiotics. 2. Add some Ativan or Xanax as needed for anxiety. 3. Probably need to consider hospice care. Job ID: [id number]
--- NOTE | 2019-04-28 11:52 | PDOC.PN ---
- Subjective Encounter Start Date: 04/28/19 Encounter Start Time: 10:30 Patient seen and examined. still has dyspnea, less tachycardia, overall better with high flow oxygen, No overnight events - Objective Resuscitation Status - Order Detail: 04/26/19 23:41 Resuscitation Status Routine Resuscitation Status: PRTL: Cardiac only Discussed with: son JOE Reviewed: Yes Vital Signs & Weight: Vital Signs (12 hours) Temp Pulse Pulse Ox 04/28/19 10:54 99.1 F 04/28/19 08:44 109 H 04/28/19 07:14 96 04/28/19 07:12 97.4 F L 04/28/19 04:53 97.8 F 04/28/19 03:54 97.5 F L Weight Admit Weight 112 lb 8 oz Weight 112 lb 8 oz Most Recent Monitor Data Heart Rate from ECG 109 NIBP 105/74 NIBP BP-Mean 84 Respiration from ECG 12 SpO2 96 I&O: 04/27/19 04/28/19 04/29/19 06:59 06:59 06:59 Intake Total 511 2972 Output Total 600 1100 Balance -89 1872 Result Diagrams: 04/26/19 20:32 04/27/19 02:34 EKG Reviewed by me: Yes (tachycardia) Phys Exam - Physical Examination Constitutional: NAD HEENT: PERRLA, sclera anicteric Neck: no JVD, supple Respiratory: no wheezing, no rhonchi scattered bilateral rales Cardiovascular: RRR, no significant murmur, no rub Gastrointestinal: soft, non-tender, no distention, positive bowel sounds Musculoskeletal: no edema, pulses present Neurological: non-focal, normal sensation Lymphatic: no nodes Psychiatric: normal affect, A&O x 3 Skin: no rash, normal turgor Dx/Plan (1) Acute on chronic respiratory failure with hypoxemia Code(s): J96.21 - ACUTE AND CHRONIC RESPIRATORY FAILURE WITH HYPOXIA Status: Acute (2) Abnormal LFTs Code(s): R94.5 - ABNORMAL RESULTS OF LIVER FUNCTION STUDIES Status: Acute (3) Lactic acidosis Code(s): E87.2 - ACIDOSIS Status: Acute (4) Type [address] elevation Code(s): I21.A1 - MYOCARDIAL INFARCTION TYPE 2 Status: Acute (5) Anxiety and depression Code(s): F41.9 - ANXIETY DISORDER, UNSPECIFIED; F32.9 - MAJOR DEPRESSIVE DISORDER, SINGLE EPISODE, UNSPECIFIED Status: Chronic (6) Dyslipidemia Code(s): E78.5 - HYPERLIPIDEMIA, UNSPECIFIED Status: Chronic (7) GERD (gastroesophageal reflux disease) Code(s): K21.9 - GASTRO-ESOPHAGEAL REFLUX DISEASE WITHOUT ESOPHAGITIS Status: Chronic (8) Hypothyroidism Code(s): E03.9 - HYPOTHYROIDISM, UNSPECIFIED Status: Chronic (9) Protein-calorie malnutrition, moderate Code(s): E44.0 - MODERATE PROTEIN-CALORIE MALNUTRITION Status: Chronic (10) Pulmonary fibrosis Code(s): J84.10 - PULMONARY FIBROSIS, UNSPECIFIED Status: Chronic - Plan cont current plan of care, plan discussed w/ family, continue antibiotics, respiratory therapy * continue empiric antibiotics * continue high flow oxygen * continue IV steroid * spoke with family and answered all questions * medication reviewed as below * symptomatic treatment. Review of Systems - Review of Systems Eyes: negative: Pain, Vision Change, Conjunctivae Inflammation, Eyelid Inflammation, Redness, Other ENT: negative: Ear Pain, Ear Discharge, Nose Pain, Nose Discharge, Nose Congestion, Mouth Pain, Mouth Swelling, Throat Pain, Throat Swelling, Other Respiratory: Cough, SOB with Excertion. negative: Dry, Shortness of Breath, Hemoptysis, Pleuritic Pain, Sputum, Wheezing Cardiovascular: negative: chest pain, palpitations, orthopnea, paroxysmal nocturnal dyspnea, edema, light headedness, other Gastrointestinal: negative: Nausea, Vomiting, Abdominal Pain, Diarrhea, Constipation, Melena, Hematochezia, Other Genitourinary: negative: Dysuria, Frequency, Incontinence, Hematuria, Retention , Other Musculoskeletal: negative: Neck Pain, Shoulder Pain, Arm Pain, Back Pain, Hand Pain, Leg Pain, Foot Pain, Other Skin: negative: Rash, Lesions, Bandar, Bruising, Other - Medications/Allergies Allergies/Adverse Reactions: Allergies Allergy/AdvReac Type Severity Reaction Status Date / Time acetaminophen [From Percocet] Allergy Verified 04/26/19 22:22 azithromycin [From Zithromax] Allergy Verified 02/14/19 17:48 iodine Allergy Verified 02/14/19 17:48 latex Allergy Rash Verified 02/14/19 17:48 oxycodone Allergy Verified 04/26/19 22:22 tramadol Allergy Verified 04/26/19 22:22 Medications: Current Medications Apixaban (Eliquis) 5 mg PO BID [facility] Last Admin: 04/28/19 08:44 Dose: 5 mg Ascorbic Acid (Vitamin C) 500 mg PO DAILY [facility] Last Admin: 04/28/19 08:44 Dose: 500 mg Bisacodyl (Dulcolax) 10 mg PO DAILYPRN PRN PRN Reason: Constipation Coenzyme Q10 (Coenzyme Q10) 100 mg PO DAILY [facility] Last Admin: 04/28/19 08:43 Dose: 100 mg Digoxin (Lanoxin) 0.125 mg PO DAILY [facility] Last Admin: 04/28/19 08:44 Dose: 0.125 mg Furosemide (Lasix) 20 mg PO QAM [facility] Last Admin: 04/28/19 08:45 Dose: 20 mg Gabapentin (Neurontin) 300 mg PO TID [facility] Last Admin: 04/28/19 08:44 Dose: 300 mg Vancomycin HCl 500 mg/ Sodium (Chloride) 100 mls @ 100 mls/hr IVPB Q24HR [facility] Last Admin: 04/27/19 20:43 Dose: 100 mls Piperacillin Sod/Tazobactam (Sod 2.25 gm/ Sodium Chloride) 100 mls @ 200 mls/ hr IVPB Q6HR [facility] Last Admin: 04/28/19 05:36 Dose: 100 mls Sodium Chloride (Normal Saline 0.9%) 1,000 mls @ 70 mls/hr IV .[id number] [facility] Last Admin: 04/28/19 08:48 Dose: 1,000 mls Levothyroxine Sodium (Synthroid) 50 mcg PO 0600 [facility] Last Admin: 04/28/19 05:36 Dose: 50 mcg Lorazepam (Ativan) 1 mg PO Q4H PRN PRN Reason: Anxiety/Agitation Methylprednisolone Sodium Succinate (Solu-Medrol) 40 mg IVP Q6HR [facility] Last Admin: 04/28/19 05:36 Dose: 40 mg Metoprolol Succinate (Toprol Xl) 50 mg PO DAILY [facility] Last Admin: 04/28/19 08:44 Dose: 50 mg Miscellaneous Medication (Pharmacy To Dose) 1 each IVPB PRN PRN PRN Reason: Pharmacy to dose Mometasone Furoate/Formoterol Fumar (Dulera 200 Mcg/5 Mcg Inhaler) 2 puff INH BID-RT [facility] Last Admin: 04/28/19 07:14 Dose: 2 puff Montelukast Sodium (Singulair) 10 mg PO HS [facility] Last Admin: 04/27/19 20:23 Dose: 10 mg Non-Formulary Medication (Nintedanib Esylate [Ofev]) 150 mg PO BID [facility] Pantoprazole Sodium (Protonix) 40 mg PO DAILY [facility] Last Admin: 04/28/19 08:44 Dose: 40 mg Saccharomyces Boulardii (Florastor) 250 mg PO BID [facility] Last Admin: 04/28/19 08:44 Dose: 250 mg Simethicone (Mylicon Chewable) 80 mg PO [facility] PRN PRN Reason: Gas Pain Simvastatin (Zocor) 5 mg PO HS [facility] Last Admin: 04/27/19 20:23 Dose: 5 mg Sodium Chloride (Flush - Normal Saline) 10 ml IVF Q12HR [facility] Last Admin: 04/28/19 08:46 Dose: Not Given Sodium Chloride (Flush - Normal Saline) 10 ml IVF PRN PRN PRN Reason: Saline Flush Temazepam (Restoril) 15 mg PO [facility] Last Admin: 04/27/19 20:23 Dose: 15 mg
[2019-04-28] MEDS: Lorazepam 1 MG TAB PO PRN (12:40)
[2019-04-28] MEDS: Montelukast Sodium 10 mg Tablet PO SCH (20:41)
[2019-04-28] MEDS: Temazepam 15 MG CAP PO SCH (20:42)
[2019-04-28] MEDS: Vancomycin HCl 500 MG in Sodium Chloride 0.9% 100 ML IVPB SCH (20:42)
[2019-04-28] MEDS: Simvastatin 5 MG TAB PO SCH (20:42)
[2019-04-28 21:39] LABS: Vancomycin, Trough 12.3 ug/mL
[2019-04-28] MEDS: Vancomycin HCl 750 MG in Sodium Chloride 0.9% 250 ML 250 ML IVPB SCH (22:20)
[2019-04-29 04:14] LABS: #Lymphocytes 0.4 thou/uL (1.20-3.40); #Monocytes 0.1 thou/uL (0.11-0.59); #Neutrophils 4.7 thou/uL (1.40-6.50); %Basophils 0.1 % (0.0-1.0); %Eosinophils 0.1 % (0.0-10.0); %Lymphocytes 7.6 % (21.0-51.0); %Monocytes 2.5 % (0.0-10.0); %Neutrophils 89.7 % (42.0-75.0); Hemoglobin 8.3 g/dL (12.0-16.0); Mean Corpuscular HGB CONC 29.5 g/dL (32.0-36.0); Mean Corpuscular Hemoglobin 22.8 pg (27.0-31.0); Mean Corpuscular Volume 77.3 fL (78.0-98.0); Mean Platelet Volume 9.6 fL (7.4-10.4); Platelet Count 215 thou/uL (130-400); RBC Distribution Width 17.8 % (11.5-14.5); Red Blood Cell (RBC) Count 3.62 mill/uL (4.20-5.40); White Blood Cell (WBC) Count 5.3 thou/uL (4.8-10.8)
[2019-04-29 04:40] LABS: Lactic Acid 2.2 mmol/L (0.5-2.2)
[2019-04-29 04:42] LABS: ALT (SGPT) 96 U/L (8-55); AST (SGOT) 43 U/L (5-34); Albumin 2.9 g/dL (3.4-4.8); Alkaline Phosphatase 85 U/L (40-150); Anion Gap 11 mmol/L (10-20); BUN (Urea Nitrogen) 22 mg/dL (9.8-20.1); Bilirubin, Total 0.3 mg/dL (0.2-1.2); Calc. Creatinine Clearance 71 mL/min (70-130); Calcium 8.9 mg/dL (7.8-10.44); Carbon Dioxide 31 mmol/L (23-31); Chloride 103 mmol/L (98-107); Estimated GFR-MDRD Greater than 90; Globulin 2.9 g/dL (2.4-3.5); Glucose 124 mg/dL (83-110); Potassium 3.8 mmol/L (3.5-5.1); Protein, Total 5.8 g/dL (6.0-8.3); Sodium 141 mmol/L (136-145)
[2019-04-29] MEDS: Piperacillin/Tazobactam 2.25 GM in Sodium Chloride 0.9% 100 ML IVPB SCH ×3 (05:17→17:12)
[2019-04-29] MEDS: Sodium Chloride 0.9% 1,000 ML IV SCH (05:17)
[2019-04-29] MEDS: methylPREDNISolone Sod Succ 40 MG VIAL IVP SCH ×3 (05:18→17:11)
[2019-04-29] MEDS: Levothyroxine Sodium 50 MCG TAB PO SCH (05:18)
[2019-04-29] MEDS: Lorazepam 1 MG TAB PO PRN (05:24)
[2019-04-29] MEDS: Mometasone/Formoterol 120 PUFF INHALER INH SCH ×2 (07:17→18:31)
[2019-04-29] MEDS: Saccharomyces boulardii 250 MG CAP PO SCH ×2 (09:38→21:32)
[2019-04-29] MEDS: Ubidecarenone 50 MG CAP PO SCH (09:39)
[2019-04-29] MEDS: Apixaban 5 MG TAB PO SCH ×2 (09:39→21:32)
[2019-04-29] MEDS: Digoxin 0.125 MG TAB PO SCH (09:39)
[2019-04-29] MEDS: Ascorbic Acid 500 mg Chewable Tablet PO SCH (09:40)
[2019-04-29] MEDS: Gabapentin 300 MG CAP PO SCH ×3 (09:40→21:32)
[2019-04-29] MEDS: Furosemide 20 MG TAB PO SCH (09:40)
--- NOTE | 2019-04-29 10:20 | PRG ---
DATE OF SERVICE: 04/29/2019 SUBJECTIVE: The patient is lying in bed, on high-flow nasal cannula. Does not look much different from yesterday. OBJECTIVE: VITAL SIGNS: Temperature is 99.0, pulse 97, blood pressure 120/69, and O2 saturation 91% on 60 L high-flow nasal cannula, this is about 45% FiO2. HEENT: Unremarkable. NECK: No JVD. LUNGS: Diffuse crackles Bilaterally. CARDIOVASCULAR: S1 and S2. Regular. ABDOMEN: Soft. EXTREMITIES: No edema. LABORATORY DATA: White blood cell count 5.3, hematocrit 28, and platelet count 215. Sodium 141, potassium 3.8, BUN 22, creatinine 0.5, and glucose 124. ASSESSMENT: 1. Idiopathic pulmonary fibrosis with exacerbation. 2. Acute on chronic hypoxic respiratory failure. 3. Sepsis syndrome-cultures negative. PLAN: Continue antibiotics, steroids, nebulization treatment, and anticoagulation. I will go ahead and reduce the dose to 20 mg IV q.6 hours and Solu-Medrol. She does not look weanable from the perspective of her oxygen at this time. We will try to get her up into a chair. Job ID: [id number]
[2019-04-29] MEDS ORDERED: Bacteriostatic Water 30 ML VIAL FS PRN (10:32)
--- NOTE | 2019-04-29 12:04 | PDOC.PN ---
- Subjective Encounter Start Date: 04/29/19 Encounter Start Time: 10:15 Patient seen and examined. No new complaints. No overnight events overall condition remained same - Objective Resuscitation Status - Order Detail: 04/26/19 23:41 Resuscitation Status Routine Resuscitation Status: PRTL: Cardiac only Discussed with: son JOE Reviewed: Yes Vital Signs & Weight: Vital Signs (12 hours) Temp Pulse Resp Pulse Ox 04/29/19 09:39 97 04/29/19 07:35 99.0 F 04/29/19 07:17 109 H 28 H 91 L 04/29/19 07:14 91 L 04/29/19 04:00 96.9 F L 04/29/19 03:09 94 L Weight Admit Weight 112 lb 8 oz Weight 112 lb 8 oz Most Recent Monitor Data Heart Rate from ECG 110 NIBP 128/69 NIBP BP-Mean 88 Respiration from ECG 31 SpO2 92 I&O: 04/28/19 04/29/19 04/30/19 06:59 06:59 06:59 Intake Total 2972 4115 Output Total 1100 Balance 1872 4115 Result Diagrams: 04/29/19 03:38 04/29/19 03:38 EKG Reviewed by me: Yes (nsr) Phys Exam - Physical Examination Constitutional: NAD on high flow oxygen HEENT: PERRLA, moist MMs, sclera anicteric Neck: no JVD, supple Respiratory: no wheezing, no rhonchi bilateral rales Cardiovascular: RRR, no significant murmur, no rub Gastrointestinal: soft, non-tender, no distention, positive bowel sounds Musculoskeletal: no edema, pulses present Neurological: non-focal, normal sensation Lymphatic: no nodes Psychiatric: normal affect, A&O x 3 Skin: no rash, normal turgor Dx/Plan (1) Acute on chronic respiratory failure with hypoxemia Code(s): J96.21 - ACUTE AND CHRONIC RESPIRATORY FAILURE WITH HYPOXIA Status: Acute (2) Abnormal LFTs Code(s): R94.5 - ABNORMAL RESULTS OF LIVER FUNCTION STUDIES Status: Acute (3) Lactic acidosis Code(s): E87.2 - ACIDOSIS Status: Acute (4) Type [address] elevation Code(s): I21.A1 - MYOCARDIAL INFARCTION TYPE 2 Status: Acute (5) Anxiety and depression Code(s): F41.9 - ANXIETY DISORDER, UNSPECIFIED; F32.9 - MAJOR DEPRESSIVE DISORDER, SINGLE EPISODE, UNSPECIFIED Status: Chronic (6) Dyslipidemia Code(s): E78.5 - HYPERLIPIDEMIA, UNSPECIFIED Status: Chronic (7) GERD (gastroesophageal reflux disease) Code(s): K21.9 - GASTRO-ESOPHAGEAL REFLUX DISEASE WITHOUT ESOPHAGITIS Status: Chronic (8) Hypothyroidism Code(s): E03.9 - HYPOTHYROIDISM, UNSPECIFIED Status: Chronic (9) Protein-calorie malnutrition, moderate Code(s): E44.0 - MODERATE PROTEIN-CALORIE MALNUTRITION Status: Chronic (10) Pulmonary fibrosis Code(s): J84.10 - PULMONARY FIBROSIS, UNSPECIFIED Status: Chronic - Plan cont current plan of care, plan discussed w/ family, continue antibiotics, respiratory therapy * continue high flow oxygen to maintain saturation * continue IV solumderol, today dose reduced * currently on empiric antibiotics * medication reviewed as below * symptomatic treatment * discussed with pt and family bedside. Review of Systems - Review of Systems Constitutional: weakness Respiratory: Cough, Shortness of Breath, SOB with Excertion. negative: Dry, Hemoptysis, Pleuritic Pain, Sputum, Wheezing Cardiovascular: negative: chest pain, palpitations, orthopnea, paroxysmal nocturnal dyspnea, edema, light headedness, other Gastrointestinal: negative: Nausea, Vomiting, Abdominal Pain, Diarrhea, Constipation, Melena, Hematochezia, Other Genitourinary: negative: Dysuria, Frequency, Incontinence, Hematuria, Retention , Other Musculoskeletal: negative: Neck Pain, Shoulder Pain, Arm Pain, Back Pain, Hand Pain, Leg Pain, Foot Pain, Other Skin: negative: Rash, Lesions, Bandar, Bruising, Other - Medications/Allergies Allergies/Adverse Reactions: Allergies Allergy/AdvReac Type Severity Reaction Status Date / Time acetaminophen [From Percocet] Allergy Verified 04/26/19 22:22 azithromycin [From Zithromax] Allergy Verified 02/14/19 17:48 iodine Allergy Verified 02/14/19 17:48 latex Allergy Rash Verified 02/14/19 17:48 oxycodone Allergy Verified 04/26/19 22:22 tramadol Allergy Verified 04/26/19 22:22 Medications: Current Medications Apixaban (Eliquis) 5 mg PO BID [facility] Last Admin: 04/29/19 09:39 Dose: 5 mg Ascorbic Acid (Vitamin C) 500 mg PO DAILY [facility] Last Admin: 04/29/19 09:40 Dose: 500 mg Bisacodyl (Dulcolax) 10 mg PO DAILYPRN PRN PRN Reason: Constipation Coenzyme Q10 (Coenzyme Q10) 100 mg PO DAILY [facility] Last Admin: 04/29/19 09:39 Dose: 100 mg Digoxin (Lanoxin) 0.125 mg PO DAILY [facility] Last Admin: 04/29/19 09:39 Dose: 0.125 mg Furosemide (Lasix) 20 mg PO QAM [facility] Last Admin: 04/29/19 09:40 Dose: 20 mg Gabapentin (Neurontin) 300 mg PO TID [facility] Last Admin: 04/29/19 09:40 Dose: 300 mg Piperacillin Sod/Tazobactam (Sod 2.25 gm/ Sodium Chloride) 100 mls @ 200 mls/ hr IVPB Q6HR [facility] Last Admin: 04/29/19 05:17 Dose: 100 mls Vancomycin HCl 750 mg/ Sodium (Chloride) 250 mls @ 250 mls/hr IVPB Q24HR [facility] Last Admin: 04/28/19 22:20 Dose: 250 mls Levothyroxine Sodium (Synthroid) 50 mcg PO 0600 [facility] Last Admin: 04/29/19 05:18 Dose: 50 mcg Lorazepam (Ativan) 1 mg PO Q4H PRN PRN Reason: Anxiety/Agitation Last Admin: 04/29/19 05:24 Dose: 1 mg Methylprednisolone Sodium Succinate (Solu-Medrol) 20 mg IVP Q6HR [facility] Metoprolol Succinate (Toprol Xl) 50 mg PO DAILY [facility] Last Admin: 04/29/19 09:40 Dose: 50 mg Miscellaneous Medication (Pharmacy To Dose) 1 each IVPB PRN PRN PRN Reason: Pharmacy to dose Mometasone Furoate/Formoterol Fumar (Dulera 200 Mcg/5 Mcg Inhaler) 2 puff INH BID-RT [facility] Last Admin: 04/29/19 07:17 Dose: 2 puff Montelukast Sodium (Singulair) 10 mg PO HS [facility] Last Admin: 04/28/19 20:41 Dose: 10 mg Non-Formulary Medication (Nintedanib Esylate [Ofev]) 150 mg PO BID [facility] Pantoprazole Sodium (Protonix) 40 mg PO DAILY [facility] Last Admin: 04/29/19 09:41 Dose: 40 mg Saccharomyces Boulardii (Florastor) 250 mg PO BID [facility] Last Admin: 04/29/19 09:38 Dose: 250 mg Simethicone (Mylicon Chewable) 80 mg PO [facility] PRN PRN Reason: Gas Pain Simvastatin (Zocor) [address] [facility] Last Admin: 04/28/19 20:42 Dose: 5 mg Sodium Chloride (Flush - Normal Saline) 10 ml IVF Q12HR [facility] Last Admin: 04/29/19 09:42 Dose: 10 ml Sodium Chloride (Flush - Normal Saline) 10 ml IVF PRN PRN PRN Reason: Saline Flush Sterile Water (Bacteriostatic Water) 1 ml FS PRN PRN PRN Reason: RECONSTITUTION Temazepam (Restoril) [address] [facility] Last Admin: 04/28/19 20:42 Dose: 15 mg
[2019-04-29] MEDS: Simvastatin 5 MG TAB PO SCH (21:32)
[2019-04-29] MEDS: Vancomycin HCl 750 MG in Sodium Chloride 0.9% 250 ML 250 ML IVPB SCH (21:32)
[2019-04-29] MEDS: Temazepam 15 MG CAP PO SCH (21:32)
[2019-04-29] MEDS: Montelukast Sodium 10 mg Tablet PO SCH (21:32)
[2019-04-30] MEDS: Piperacillin/Tazobactam 2.25 GM in Sodium Chloride 0.9% 100 ML IVPB SCH ×3 (00:06→11:41)
[2019-04-30] MEDS: methylPREDNISolone Sod Succ 40 MG VIAL IVP SCH ×4 (00:06→17:24)
[2019-04-30] MEDS: Levothyroxine Sodium 50 MCG TAB PO SCH (06:24)
[2019-04-30] MEDS: Mometasone/Formoterol 120 PUFF INHALER INH SCH ×2 (07:33→19:01)
[2019-04-30] MEDS: Digoxin 0.125 MG TAB PO SCH (09:06)
[2019-04-30] MEDS: Apixaban 5 MG TAB PO SCH ×2 (09:06→20:33)
[2019-04-30] MEDS: Ascorbic Acid 500 mg Chewable Tablet PO SCH (09:06)
[2019-04-30] MEDS: Gabapentin 300 MG CAP PO SCH ×3 (09:07→20:33)
[2019-04-30] MEDS: Furosemide 20 MG TAB PO SCH (09:07)
[2019-04-30] MEDS: Ubidecarenone 50 MG CAP PO SCH (09:08)
[2019-04-30] MEDS: Saccharomyces boulardii 250 MG CAP PO SCH ×2 (09:08→20:32)
[2019-04-30] MEDS: Lorazepam 1 MG TAB PO PRN ×2 (09:20→17:31)
--- NOTE | 2019-04-30 10:23 | PDOC.PALCO ---
Palliative Care Consult - Consult Details Requesting Physician: Dr Weaver Reason for Consult: goals of care Family Members Present: Brother Mr Arndt - Pertinent HPI Ptietn is a 73 year old female with 3 acute hospitalizations in the past 6 months. Patient has a hisotry of pulmonary fibrosis with acute on chronic resp failure. Resides at an assisted living facility with [facility] home health. Patient transfered to [facility] ER r/t increase weakness and hypotension. Patient transfered to [facility] secondary to specialists at this facility. Patient O2 dependent on Bipap. Patient of Dr Cueto. - Pertinent H Significant medical history. Pulmonary Fibrosis with acute on chronic respiratory failure. Cardiac history, depression, hypothyroidism, Type II DM, GERD. - Social History Living Situation: other (Lives at assisted living, home health services) - Medications MAR Reviewed: Yes - Allergies Allergies/Adverse Reactions: Allergies Allergy/AdvReac Type Severity Reaction Status Date / Time acetaminophen [From Percocet] Allergy Verified 04/26/19 22:22 azithromycin [From Zithromax] Allergy Verified 02/14/19 17:48 iodine Allergy Verified 02/14/19 17:48 latex Allergy Rash Verified 02/14/19 17:48 oxycodone Allergy Verified 04/26/19 22:22 tramadol Allergy Verified 04/26/19 22:22 - Subjective Patient sleeping upon arrival, brother Mr Arndt at bedside. Patient did speak during visit, weak and would drift to sleep state. Oriented. Labored respirations with accessory muscle use and push of speech. Bipap in place. Patient states if she decides to pursue hospice she would like [facility]. Patient waiting on Dr Cueto, and then will decide on next course of action in relation to goals. - Objective Vital Signs: Vital Signs - Most Recent Temp Pulse Resp BP Pulse Ox 97.0 F L 110 H 26 H 117/70 96 04/30/19 07:08 04/30/19 09:06 04/29/19 18:31 04/26/19 20:09 04/30/19 08:00 Palliative Performance Scale: 30 - Physical Exam Deviation from normal: oriented but weak. HEENT: PERRLA, moist MMs Deviation from normal: labored breathing, weak productive cough Cardiovascular: RRR Gastrointestinal: soft, non-tender Neurological: non-focal Deviation from normal: fair/poor turgor. - Problem List (1) Encounter for palliative care Code(s): Z51.5 - ENCOUNTER FOR PALLIATIVE CARE Current Visit: Yes Status: Acute (2) Acute on chronic respiratory failure with hypoxemia Code(s): J96.21 - ACUTE AND CHRONIC RESPIRATORY FAILURE WITH HYPOXIA Current Visit: Yes Status: Acute (3) Anxiety and depression Code(s): F41.9 - ANXIETY DISORDER, UNSPECIFIED; F32.9 - MAJOR DEPRESSIVE DISORDER, SINGLE EPISODE, UNSPECIFIED Current Visit: Yes Status: Chronic (4) Pulmonary fibrosis Code(s): J84.10 - PULMONARY FIBROSIS, UNSPECIFIED Current Visit: Yes Status : Chronic - Plan/Recommendations Plan: *Will communicate to Dr Cueto of visit *Support patient and family *Patient considering Hospice but will discuss with Dr Cueto *Follow up after Dr Cueto sees patient to support patient to clarify goals of care if needed and supportive care. [45] minutes spent on this encounter with >50% of the time in counseling and coordination of care. Thank you for this very appropriate consult.
--- NOTE | 2019-04-30 12:08 | PDOC.PN ---
- Subjective Encounter Start Date: 04/30/19 Encounter Start Time: 10:30 pt gets desaturation even after turning position, very weak, requires high flow oxygen - Objective Resuscitation Status - Order Detail: 04/26/19 23:41 Resuscitation Status Routine Resuscitation Status: PRTL: Cardiac only Discussed with: son JOE Reviewed: Yes Vital Signs & Weight: Vital Signs (12 hours) Temp Pulse Pulse Ox 04/30/19 10:25 99.2 F 04/30/19 09:06 110 H 04/30/19 08:00 96 04/30/19 07:34 91 L 04/30/19 07:08 97.0 F L 04/30/19 05:25 94 L 04/30/19 04:00 97.2 F L Weight Admit Weight 112 lb 8 oz Weight 112 lb 8 oz Most Recent Monitor Data Heart Rate from ECG 106 NIBP 134/79 NIBP BP-Mean 97 Respiration from ECG 35 SpO2 93 I&O: 04/29/19 04/30/19 05/01/19 06:59 06:59 06:59 Intake Total 4115 2190 Balance 4115 2190 Result Diagrams: 04/29/19 03:38 04/29/19 03:38 EKG Reviewed by me: Yes Phys Exam - Physical Examination Constitutional: NAD HEENT: PERRLA, moist MMs, sclera anicteric Neck: no JVD, supple Respiratory: no wheezing, no rhonchi bilateral fine rales Cardiovascular: RRR, no significant murmur, no rub Gastrointestinal: soft, non-tender, no distention, positive bowel sounds Musculoskeletal: no edema, pulses present Neurological: non-focal, normal sensation, moves all 4 limbs Lymphatic: no nodes Psychiatric: normal affect, A&O x 3 Skin: no rash, normal turgor Dx/Plan (1) Acute on chronic respiratory failure with hypoxemia Code(s): J96.21 - ACUTE AND CHRONIC RESPIRATORY FAILURE WITH HYPOXIA Status: Acute (2) Abnormal LFTs Code(s): R94.5 - ABNORMAL RESULTS OF LIVER FUNCTION STUDIES Status: Acute (3) Lactic acidosis Code(s): E87.2 - ACIDOSIS Status: Acute (4) Type [address] elevation Code(s): I21.A1 - MYOCARDIAL INFARCTION TYPE 2 Status: Acute (5) Anxiety and depression Code(s): F41.9 - ANXIETY DISORDER, UNSPECIFIED; F32.9 - MAJOR DEPRESSIVE DISORDER, SINGLE EPISODE, UNSPECIFIED Status: Chronic (6) Dyslipidemia Code(s): E78.5 - HYPERLIPIDEMIA, UNSPECIFIED Status: Chronic (7) GERD (gastroesophageal reflux disease) Code(s): K21.9 - GASTRO-ESOPHAGEAL REFLUX DISEASE WITHOUT ESOPHAGITIS Status: Chronic (8) Hypothyroidism Code(s): E03.9 - HYPOTHYROIDISM, UNSPECIFIED Status: Chronic (9) Protein-calorie malnutrition, moderate Code(s): E44.0 - MODERATE PROTEIN-CALORIE MALNUTRITION Status: Chronic (10) Pulmonary fibrosis Code(s): J84.10 - PULMONARY FIBROSIS, UNSPECIFIED Status: Chronic (11) Decubitus ulcer of coccygeal region, unstageable Code(s): L89.150 - PRESSURE ULCER OF SACRAL REGION, UNSTAGEABLE Status: Acute Comment: present on admission - Plan cont current plan of care, plan discussed w/ family, continue antibiotics, social service assistant, respiratory therapy * currently on empiric vancomycin and zosyn * continue IV solumedrol * family updated about information * medication reviewed as below * symptomatic treatment * prognosis guarded * further plan will defer to pulmonary. * nutritional support * wound care Review of Systems - Review of Systems Constitutional: weakness, malaise. negative: fever, chills, sweats, other Respiratory: Cough, Shortness of Breath, SOB with Excertion. negative: Dry, Hemoptysis, Pleuritic Pain, Sputum, Wheezing Cardiovascular: negative: chest pain, palpitations, orthopnea, paroxysmal nocturnal dyspnea, edema, light headedness, other Gastrointestinal: negative: Nausea, Vomiting, Abdominal Pain, Diarrhea, Constipation, Melena, Hematochezia, Other Genitourinary: negative: Dysuria, Frequency, Incontinence, Hematuria, Retention , Other Musculoskeletal: negative: Neck Pain, Shoulder Pain, Arm Pain, Back Pain, Hand Pain, Leg Pain, Foot Pain, Other Skin: negative: Rash, Lesions, Bandar, Bruising, Other - Medications/Allergies Allergies/Adverse Reactions: Allergies Allergy/AdvReac Type Severity Reaction Status Date / Time acetaminophen [From Percocet] Allergy Verified 04/26/19 22:22 azithromycin [From Zithromax] Allergy Verified 02/14/19 17:48 iodine Allergy Verified 02/14/19 17:48 latex Allergy Rash Verified 02/14/19 17:48 oxycodone Allergy Verified 04/26/19 22:22 tramadol Allergy Verified 04/26/19 22:22 Medications: Current Medications Apixaban (Eliquis) 5 mg PO BID [facility] Last Admin: 04/30/19 09:06 Dose: 5 mg Ascorbic Acid (Vitamin C) 500 mg PO DAILY [facility] Last Admin: 04/30/19 09:06 Dose: 500 mg Bisacodyl (Dulcolax) 10 mg PO DAILYPRN PRN PRN Reason: Constipation Coenzyme Q10 (Coenzyme Q10) 100 mg PO DAILY [facility] Last Admin: 04/30/19 09:08 Dose: 100 mg Digoxin (Lanoxin) 0.125 mg PO DAILY [facility] Last Admin: 04/30/19 09:06 Dose: 0.125 mg Furosemide (Lasix) 20 mg PO QAM [facility] Last Admin: 04/30/19 09:07 Dose: 20 mg Gabapentin (Neurontin) 300 mg PO TID [facility] Last Admin: 04/30/19 09:07 Dose: 300 mg Piperacillin Sod/Tazobactam (Sod 2.25 gm/ Sodium Chloride) 100 mls @ 200 mls/ hr IVPB Q6HR [facility] Last Admin: 04/30/19 11:41 Dose: 100 mls Vancomycin HCl 750 mg/ Sodium (Chloride) 250 mls @ 250 mls/hr IVPB Q24HR [facility] Last Admin: 04/29/19 21:32 Dose: 250 mls Levothyroxine Sodium (Synthroid) 50 mcg PO 0600 [facility] Last Admin: 04/30/19 06:24 Dose: 50 mcg Lorazepam (Ativan) 1 mg PO Q4H PRN PRN Reason: Anxiety/Agitation Last Admin: 04/30/19 09:20 Dose: 1 mg Methylprednisolone Sodium Succinate (Solu-Medrol) 20 mg IVP Q6HR [facility] Last Admin: 04/30/19 11:42 Dose: 20 mg Metoprolol Succinate (Toprol Xl) 50 mg PO DAILY [facility] Last Admin: 04/30/19 09:07 Dose: 50 mg Miscellaneous Medication (Pharmacy To Dose) 1 each IVPB PRN PRN PRN Reason: Pharmacy to dose Mometasone Furoate/Formoterol Fumar (Dulera 200 Mcg/5 Mcg Inhaler) 2 puff INH BID-RT [facility] Last Admin: 04/30/19 07:33 Dose: 2 puff Montelukast Sodium (Singulair) 10 mg PO HS [facility] Last Admin: 04/29/19 21:32 Dose: 10 mg Non-Formulary Medication (Nintedanib Esylate [Ofev]) 150 mg PO BID [facility] Pantoprazole Sodium (Protonix) 40 mg PO DAILY [facility] Last Admin: 04/30/19 09:07 Dose: 40 mg Saccharomyces Boulardii (Florastor) 250 mg PO BID [facility] Last Admin: 04/30/19 09:08 Dose: 250 mg Simethicone (Mylicon Chewable) 80 mg PO [facility] PRN PRN Reason: Gas Pain Simvastatin (Zocor) 5 mg PO [facility] Last Admin: 04/29/19 21:32 Dose: 5 mg Sodium Chloride (Flush - Normal Saline) 10 ml IVF Q12HR [facility] Last Admin: 04/30/19 09:08 Dose: 10 ml Sodium Chloride (Flush - Normal Saline) 10 ml IVF PRN PRN PRN Reason: Saline Flush Last Admin: 04/30/19 11:44 Dose: 10 ml Sterile Water (Bacteriostatic Water) 1 ml FS PRN PRN PRN Reason: RECONSTITUTION Temazepam (Restoril) 15 mg PO [facility] Last Admin: 04/29/19 21:32 Dose: 15 mg
--- NOTE | 2019-04-30 15:29 | PRG ---
DATE OF SERVICE: 04/30/2019 SUBJECTIVE: Carmelo Tovar was evaluated. Her events over the weekend were reviewed with the son in last week. She says she is feeling better. OBJECTIVE: VITAL SIGNS: She is afebrile. Blood pressure 129/73, respiratory rate 23, oximetry is 91% on high-flow oxygen. LUNGS: Still remarkable for crackles. HEART: Regular rhythm. ABDOMEN: Soft. EXTREMITIES: Without edema. She was seen in the office 2 weeks ago, and her stump was well healed, and she actually looked great. Cultures have been reviewed and are negative. IMPRESSION: 1. Usual interstitial pneumonitis has been slowly progressive. 2. Idiopathic pulmonary fibrosis exacerbation. 3. Hypotension on admission, likely related to intravascular volume depletion, poor p.o. intake. 4. Pulmonary hypertension secondary to her pulmonary fibrosis. 5. Diastolic dysfunction by echocardiogram. I have talked to the nurses about increasing her activity level. She needs to get out of bed. I have had multiple discussions with her in the office about resuscitation. Resuscitation has been entered as cardiac only. This is not consistent with her wishes. I will change this to full do not resuscitate status. I answered all the son's questions. He wanted me to call his brother. I have asked him to relay the information. Job ID: [id number] MTDD
--- NOTE | 2019-04-30 16:15 | PQF ---
CLINICAL DOCUMENTATION IMPROVEMENT CLARIFICATION FORM: ICD-10 Updated PLEASE DO AN ADDENDUM TO THE PROGRESS NOTE WITH ANY DOCUMENTATION UPDATES OR ADDITIONS AND CARRY THROUGH TO DC SUMMARY. THANK YOU. DATE: 04/30/2019 ATTN: Dr. Weaver Please exercise your independent, professional judgment in responding to the clarification form. Clinical indicators are provided on the bottom of this form for your review Please check appropriate box(s) to clarify if the following diagnosis has been ruled in or ruled out: SEPSIS . [ x ] Ruled in diagnosis [ x ] Continue to treat [ ] Resolved [ ] Ruled out diagnosis [ ] Cannot rule out diagnosis [ ] Other diagnosis [ ] Unable to determine In addition, please specify: Present on Admission (POA): [ x ] Yes [ ] No [ ] Unable to determine For continuity of documentation, please document condition throughout progress notes and discharge summary. Thank You. CLINICAL INDICATORS - SIGNS / SYMPTOMS / LABS H&P 04/26: BP 117/70, Pulse 121, Resp. rate 35, O2 sat 95% on Bipap leukocytosis with 14,700 white cells lactic acid level 12.8 Sepsis RISKS: H&P: 73 yo. Presenting with acute hypoxic respiratory failure. Acute Kidney injury. PN 04/30: Lactic acidosis. [place] Type 2. Protein-calorie malnutrition, moderate. Decubitus ulcer of coccygeal region TREATMENT: MAR: Order 04/26- 04/30. IV Zosyn MAR: Order 04/26- 04/30. IV Vancomycin Thank you, Misty (This form is maintained as a part of the permanent medical record) 2014 [employer]. All Rights Reserved Misty Yuan RN, BSN [email or web address] Office: [phone] [facility]
[2019-04-30] MEDS: Simvastatin 5 MG TAB PO SCH (20:32)
[2019-04-30] MEDS: Amoxicillin/Potassium Clav 875 MG TAB PO SCH (20:32)
[2019-04-30] MEDS: Temazepam 15 MG CAP PO SCH (20:32)
[2019-04-30] MEDS: Montelukast Sodium 10 mg Tablet PO SCH (20:32)
[2019-04-30 21:41] LABS: Vancomycin, Trough 3.1 ug/mL
[2019-05-01] MEDS: methylPREDNISolone Sod Succ 40 MG VIAL IVP SCH ×5 (00:36→23:33)
[2019-05-01] MEDS: Levothyroxine Sodium 50 MCG TAB PO SCH (05:48)
[2019-05-01] MEDS: Mometasone/Formoterol 120 PUFF INHALER INH SCH ×2 (08:29→18:13)
[2019-05-01] MEDS: Amoxicillin/Potassium Clav 875 MG TAB PO SCH ×2 (09:07→20:11)
[2019-05-01] MEDS: Gabapentin 300 MG CAP PO SCH ×3 (09:07→20:11)
[2019-05-01] MEDS: Furosemide 20 MG TAB PO SCH (09:07)
[2019-05-01] MEDS: Digoxin 0.125 MG TAB PO SCH (09:07)
[2019-05-01] MEDS: Apixaban 5 MG TAB PO SCH ×2 (09:07→20:11)
[2019-05-01] MEDS: Saccharomyces boulardii 250 MG CAP PO SCH ×2 (09:08→20:12)
[2019-05-01] MEDS: Ubidecarenone 50 MG CAP PO SCH (09:09)
[2019-05-01] MEDS: Lorazepam 1 MG TAB PO PRN (09:11)
--- NOTE | 2019-05-01 10:47 | PDOC.PN ---
- Subjective Encounter Start Date: 05/01/19 Encounter Start Time: 10:40 last night pt was disoriented after getting ativan and restoril for sleep, he pulled out her high flow oxygen and she was able to seated in chair by herself, she was hypoxic, there was no fall, this morning she is resting - Objective Resuscitation Status - Order Detail: 04/30/19 15:11 Resuscitation Status Routine Resuscitation Status: DNAR: NO Resuscitation Discussed with: pt MAR Reviewed: Yes Vital Signs & Weight: Vital Signs (12 hours) Temp Pulse Resp Pulse Ox 05/01/19 10:23 98.0 F 05/01/19 09:07 113 H 05/01/19 08:31 99 05/01/19 08:29 103 H 32 H 98 05/01/19 07:56 99 05/01/19 07:11 97.0 F L 05/01/19 04:00 97.7 F 05/01/19 02:32 100 05/01/19 00:35 97.8 F Weight Admit Weight 112 lb 8 oz Weight 121 lb 8 oz Most Recent Monitor Data Heart Rate from ECG 104 NIBP 124/71 NIBP BP-Mean 88 Respiration from ECG 28 SpO2 98 I&O: 04/30/19 05/01/19 05/02/19 06:59 06:59 06:59 Intake Total 2190 1032 Output Total 1200 400 Balance 2190 -168 -400 Result Diagrams: 04/29/19 03:38 04/29/19 03:38 Additional Labs: Accuchecks 05/01/19 05:44 POC Glucose 122 H EKG Reviewed by me: Yes (nsr) Phys Exam - Physical Examination Constitutional: NAD HEENT: PERRLA, moist MMs, sclera anicteric Neck: no JVD, supple bilateral fine rales+ Cardiovascular: RRR, no significant murmur, no rub Gastrointestinal: soft, no distention, positive bowel sounds Musculoskeletal: no edema, pulses present Lymphatic: no nodes Skin: no rash, normal turgor Dx/Plan (1) Acute on chronic respiratory failure with hypoxemia Code(s): J96.21 - ACUTE AND CHRONIC RESPIRATORY FAILURE WITH HYPOXIA Status: Acute (2) Abnormal LFTs Code(s): R94.5 - ABNORMAL RESULTS OF LIVER FUNCTION STUDIES Status: Acute (3) Lactic acidosis Code(s): E87.2 - ACIDOSIS Status: Acute (4) Type [address] elevation Code(s): I21.A1 - MYOCARDIAL INFARCTION TYPE 2 Status: Acute (5) Anxiety and depression Code(s): F41.9 - ANXIETY DISORDER, UNSPECIFIED; F32.9 - MAJOR DEPRESSIVE DISORDER, SINGLE EPISODE, UNSPECIFIED Status: Chronic (6) Dyslipidemia Code(s): E78.5 - HYPERLIPIDEMIA, UNSPECIFIED Status: Chronic (7) GERD (gastroesophageal reflux disease) Code(s): K21.9 - GASTRO-ESOPHAGEAL REFLUX DISEASE WITHOUT ESOPHAGITIS Status: Chronic (8) Hypothyroidism Code(s): E03.9 - HYPOTHYROIDISM, UNSPECIFIED Status: Chronic (9) Protein-calorie malnutrition, moderate Code(s): E44.0 - MODERATE PROTEIN-CALORIE MALNUTRITION Status: Chronic (10) Pulmonary fibrosis Code(s): J84.10 - PULMONARY FIBROSIS, UNSPECIFIED Status: Chronic (11) Decubitus ulcer of coccygeal region, unstageable Code(s): L89.150 - PRESSURE ULCER OF SACRAL REGION, UNSTAGEABLE Status: Acute Comment: present on admission - Plan cont current plan of care, plan discussed w/ family, continue antibiotics, respiratory therapy, out of bed/ambulate * continue solumedrol * continue high flow oxygen as needed * medication reviewed as below * symptomatic treatment * continue augmentin * discussed with son bedside. Review of Systems - Review of Systems Other: unable to review as pt is sleeping - Medications/Allergies Allergies/Adverse Reactions: Allergies Allergy/AdvReac Type Severity Reaction Status Date / Time acetaminophen [From Percocet] Allergy Verified 04/26/19 22:22 azithromycin [From Zithromax] Allergy Verified 02/14/19 17:48 iodine Allergy Verified 02/14/19 17:48 latex Allergy Rash Verified 02/14/19 17:48 oxycodone Allergy Verified 04/26/19 22:22 tramadol Allergy Verified 04/26/19 22:22 Medications: Current Medications Amoxicillin/Clavulanate Potassium (Augmentin) 875 mg PO Q12HR [facility] Last Admin: 05/01/19 09:07 Dose: 875 mg Apixaban (Eliquis) 5 mg PO BID [facility] Last Admin: 05/01/19 09:07 Dose: 5 mg Bisacodyl (Dulcolax) 10 mg PO DAILYPRN PRN PRN Reason: Constipation Coenzyme Q10 (Coenzyme Q10) 100 mg PO DAILY [facility] Last Admin: 05/01/19 09:09 Dose: 100 mg Digoxin (Lanoxin) 0.125 mg PO DAILY [facility] Last Admin: 05/01/19 09:07 Dose: 0.125 mg Furosemide (Lasix) 20 mg PO QAM [facility] Last Admin: 05/01/19 09:07 Dose: 20 mg Gabapentin (Neurontin) 300 mg PO TID [facility] Last Admin: 05/01/19 09:07 Dose: 300 mg Levothyroxine Sodium (Synthroid) 50 mcg PO 0600 [facility] Last Admin: 05/01/19 05:48 Dose: 50 mcg Lorazepam (Ativan) 1 mg PO Q4H PRN PRN Reason: Anxiety/Agitation Last Admin: 05/01/19 09:11 Dose: 1 mg Methylprednisolone Sodium Succinate (Solu-Medrol) 20 mg IVP Q6HR [facility] Last Admin: 05/01/19 05:51 Dose: 20 mg Metoprolol Succinate (Toprol Xl) 50 mg PO DAILY [facility] Last Admin: 05/01/19 09:07 Dose: 50 mg Miscellaneous Medication (Pharmacy To Dose) 1 each IVPB PRN PRN PRN Reason: Pharmacy to dose Mometasone Furoate/Formoterol Fumar (Dulera 200 Mcg/5 Mcg Inhaler) 2 puff INH BID-RT [facility] Last Admin: 05/01/19 08:29 Dose: 2 puff Montelukast Sodium (Singulair) 10 mg PO [facility] Last Admin: 04/30/19 20:32 Dose: 10 mg Non-Formulary Medication (Nintedanib Esylate [Ofev]) 150 mg PO BID [facility] Pantoprazole Sodium (Protonix) 40 mg PO DAILY [facility] Last Admin: 05/01/19 09:08 Dose: 40 mg Saccharomyces Boulardii (Florastor) 250 mg PO BID [facility] Last Admin: 05/01/19 09:08 Dose: 250 mg Simethicone (Mylicon Chewable) 80 mg PO P[facility] PRN PRN Reason: Gas Pain Simvastatin (Zocor) 5 mg PO HS [facility] Last Admin: 04/30/19 20:32 Dose: 5 mg Sodium Chloride (Flush - Normal Saline) 10 ml IVF Q12HR [facility] Last Admin: 05/01/19 09:09 Dose: 10 ml Sodium Chloride (Flush - Normal Saline) 10 ml IVF PRN PRN PRN Reason: Saline Flush Last Admin: 04/30/19 11:44 Dose: 10 ml Sterile Water (Bacteriostatic Water) 1 ml FS PRN PRN PRN Reason: RECONSTITUTION Temazepam (Restoril) 15 mg PO HS [facility] Last Admin: 04/30/19 20:32 Dose: 15 mg
--- NOTE | 2019-05-01 15:26 | PRG ---
DATE OF SERVICE: 05/01/2019 SUBJECTIVE: The patient says she feels stronger than yesterday. She sat up in a chair yesterday afternoon and then sat up again this morning. OBJECTIVE: VITAL SIGNS: She is afebrile, heart rate is 98, respiratory rate is in the 20s, still on a high-flow cannula. LUNGS: Remarkable for diffuse crackles. HEART: Regular rhythm. ABDOMEN: Soft and nontender. EXTREMITIES: Unchanged. LABORATORY DATA: There is no new lab. IMPRESSION: Idiopathic pulmonary fibrosis with a flare. PLAN: Continue current medications. Antibiotics were converted to p.o. yesterday. Probably consider cutting her to p.o. prednisone in the morning. We need to minimize her FiO2 to get her to a sat just over 90 to minimize oxygen toxicity risks with high-flow FiO2. Job ID: [id number]
[2019-05-01] MEDS: Temazepam 15 MG CAP PO SCH (20:11)
[2019-05-01] MEDS: Montelukast Sodium 10 mg Tablet PO SCH (20:11)
[2019-05-01] MEDS: Simvastatin 5 MG TAB PO SCH (20:11)
[2019-05-02] MEDS: methylPREDNISolone Sod Succ 40 MG VIAL IVP SCH ×3 (05:47→18:37)
[2019-05-02] MEDS: Levothyroxine Sodium 50 MCG TAB PO SCH (05:47)
[2019-05-02] MEDS: Mometasone/Formoterol 120 PUFF INHALER INH SCH ×2 (06:37→19:02)
[2019-05-02] MEDS: Gabapentin 300 MG CAP PO SCH ×3 (09:37→20:31)
[2019-05-02] MEDS: Apixaban 5 MG TAB PO SCH ×2 (09:37→20:31)
[2019-05-02] MEDS: Ubidecarenone 50 MG CAP PO SCH (09:37)
[2019-05-02] MEDS: Furosemide 20 MG TAB PO SCH (09:37)
[2019-05-02] MEDS: Saccharomyces boulardii 250 MG CAP PO SCH ×2 (09:37→20:31)
[2019-05-02] MEDS: Digoxin 0.125 MG TAB PO SCH (09:37)
[2019-05-02] MEDS: Amoxicillin/Potassium Clav 875 MG TAB PO SCH ×2 (09:37→20:30)
--- NOTE | 2019-05-02 11:48 | PDOC.PN ---
- Subjective Encounter Start Date: 05/02/19 Encounter Start Time: 10:45 pt is resting, on high flow oxygen, son present bedside, no overnight event, still has dyspnea and she is very weak - Objective Resuscitation Status - Order Detail: 04/30/19 15:11 Resuscitation Status Routine Resuscitation Status: DNAR: NO Resuscitation Discussed with: pt MAR Reviewed: Yes Vital Signs & Weight: Vital Signs (12 hours) Temp Pulse Resp Pulse Ox 05/02/19 10:38 98 05/02/19 10:33 97.5 F L 05/02/19 09:37 83 05/02/19 07:18 98 05/02/19 07:00 97.2 F L 05/02/19 06:37 83 21 H 98 05/02/19 03:41 97.6 F Weight Admit Weight 112 lb 8 oz Weight 119 lb 6.4 oz Most Recent Monitor Data Heart Rate from ECG 100 NIBP 151/75 NIBP BP-Mean 100 Respiration from ECG 33 SpO2 94 I&O: 05/01/19 05/02/19 05/03/19 06:59 06:59 06:59 Intake Total 1032 1774 Output Total 1200 2400 Balance -168 -626 Result Diagrams: 04/29/19 03:38 04/29/19 03:38 EKG Reviewed by me: Yes (nsr) Phys Exam - Physical Examination Constitutional: NAD HEENT: PERRLA, moist MMs, sclera anicteric Neck: no JVD, supple bilateral fine rales Cardiovascular: RRR, no significant murmur, no rub Gastrointestinal: soft, non-tender, no distention, positive bowel sounds Musculoskeletal: no edema, pulses present Neurological: non-focal, moves all 4 limbs Lymphatic: no nodes Psychiatric: normal affect Skin: no rash, normal turgor Dx/Plan (1) Acute on chronic respiratory failure with hypoxemia Code(s): J96.21 - ACUTE AND CHRONIC RESPIRATORY FAILURE WITH HYPOXIA Status: Acute Comment: slowly improving (2) Abnormal LFTs Code(s): R94.5 - ABNORMAL RESULTS OF LIVER FUNCTION STUDIES Status: Acute Comment: Imroving, suspecting from hypoxia related liver injury (3) Lactic acidosis Code(s): E87.2 - ACIDOSIS Status: Resolved Comment: due to hypoxia (4) Type [address] elevation Code(s): I21.A1 - MYOCARDIAL INFARCTION TYPE 2 Status: Acute Comment: due to hypoxia (5) Anxiety and depression Code(s): F41.9 - ANXIETY DISORDER, UNSPECIFIED; F32.9 - MAJOR DEPRESSIVE DISORDER, SINGLE EPISODE, UNSPECIFIED Status: Chronic (6) Dyslipidemia Code(s): E78.5 - HYPERLIPIDEMIA, UNSPECIFIED Status: Chronic (7) GERD (gastroesophageal reflux disease) Code(s): K21.9 - GASTRO-ESOPHAGEAL REFLUX DISEASE WITHOUT ESOPHAGITIS Status: Chronic (8) Hypothyroidism Code(s): E03.9 - HYPOTHYROIDISM, UNSPECIFIED Status: Chronic (9) Protein-calorie malnutrition, moderate Code(s): E44.0 - MODERATE PROTEIN-CALORIE MALNUTRITION Status: Chronic (10) Pulmonary fibrosis Code(s): J84.10 - PULMONARY FIBROSIS, UNSPECIFIED Status: Chronic (11) Decubitus ulcer of coccygeal region, unstageable Code(s): L89.150 - PRESSURE ULCER OF SACRAL REGION, UNSTAGEABLE Status: Acute Comment: present on admission - Plan cont current plan of care, respiratory therapy * medication reviewed as below * symptomatic treatment * currently on IV solumderol * On po augmentin * discussed with son bedside * encourage ambulation. Review of Systems - Review of Systems Constitutional: weakness, malaise. negative: fever, chills, sweats, other Respiratory: Cough, Shortness of Breath, SOB with Excertion. negative: Dry, Hemoptysis, Pleuritic Pain, Sputum, Wheezing Cardiovascular: negative: chest pain, palpitations, orthopnea, paroxysmal nocturnal dyspnea, edema, light headedness, other Gastrointestinal: negative: Nausea, Vomiting, Abdominal Pain, Diarrhea, Constipation, Melena, Hematochezia, Other Genitourinary: negative: Dysuria, Frequency, Incontinence, Hematuria, Retention , Other Musculoskeletal: negative: Neck Pain, Shoulder Pain, Arm Pain, Back Pain, Hand Pain, Leg Pain, Foot Pain, Other - Medications/Allergies Allergies/Adverse Reactions: Allergies Allergy/AdvReac Type Severity Reaction Status Date / Time acetaminophen [From Percocet] Allergy Verified 04/26/19 22:22 azithromycin [From Zithromax] Allergy Verified 02/14/19 17:48 iodine Allergy Verified 02/14/19 17:48 latex Allergy Rash Verified 02/14/19 17:48 oxycodone Allergy Verified 04/26/19 22:22 tramadol Allergy Verified 04/26/19 22:22 Medications: Current Medications Amoxicillin/Clavulanate Potassium (Augmentin) 875 mg PO Q12HR [facility] Last Admin: 05/02/19 09:37 Dose: 875 mg Apixaban (Eliquis) 5 mg PO BID [facility] Last Admin: 05/02/19 09:37 Dose: 5 mg Bisacodyl (Dulcolax) 10 mg PO DAILYPRN PRN PRN Reason: Constipation Coenzyme Q10 (Coenzyme Q10) 100 mg PO DAILY [facility] Last Admin: 05/02/19 09:37 Dose: 100 mg Digoxin (Lanoxin) 0.125 mg PO DAILY [facility] Last Admin: 05/02/19 09:37 Dose: 0.125 mg Furosemide (Lasix) 20 mg PO QAM [facility] Last Admin: 05/02/19 09:37 Dose: 20 mg Gabapentin (Neurontin) 300 mg PO TID [facility] Last Admin: 05/02/19 09:37 Dose: 300 mg Levothyroxine Sodium (Synthroid) 50 mcg PO 0600 [facility] Last Admin: 05/02/19 05:47 Dose: 50 mcg Lorazepam (Ativan) 1 mg PO Q4H PRN PRN Reason: Anxiety/Agitation Last Admin: 05/01/19 09:11 Dose: 1 mg Methylprednisolone Sodium Succinate (Solu-Medrol) 20 mg IVP Q6HR [facility] Last Admin: 05/02/19 05:47 Dose: 20 mg Metoprolol Succinate (Toprol Xl) 50 mg PO DAILY [facility] Last Admin: 05/02/19 09:37 Dose: 50 mg Miscellaneous Medication (Pharmacy To Dose) 1 each IVPB PRN PRN PRN Reason: Pharmacy to dose Mometasone Furoate/Formoterol Fumar (Dulera 200 Mcg/5 Mcg Inhaler) 2 puff INH BID-RT [facility] Last Admin: 05/02/19 06:37 Dose: 2 puff Montelukast Sodium (Singulair) 10 mg PO HS [facility] Last Admin: 05/01/19 20:11 Dose: 10 mg Non-Formulary Medication (Nintedanib Esylate [Ofev]) 150 mg PO BID [facility] Pantoprazole Sodium (Protonix) 40 mg PO DAILY [facility] Last Admin: 05/02/19 09:37 Dose: 40 mg Saccharomyces Boulardii (Florastor) 250 mg PO BID [facility] Last Admin: 05/02/19 09:37 Dose: 250 mg Simethicone (Mylicon Chewable) 80 mg PO [facility] PRN PRN Reason: Gas Pain Simvastatin (Zocor) 5 mg PO [facility] Last Admin: 05/01/19 20:11 Dose: 5 mg Sodium Chloride (Flush - Normal Saline) 10 ml IVF Q12HR [facility] Last Admin: 05/02/19 09:38 Dose: 10 ml Sodium Chloride (Flush - Normal Saline) 10 ml IVF PRN PRN PRN Reason: Saline Flush Last Admin: 05/01/19 17:49 Dose: 10 ml Sterile Water (Bacteriostatic Water) 1 ml FS PRN PRN PRN Reason: RECONSTITUTION Temazepam (Restoril) 15 mg PO [facility] Last Admin: 05/01/19 20:11 Dose: 15 mg
--- NOTE | 2019-05-02 14:34 | PRG ---
DATE OF SERVICE: 05/02/2019 SUBJECTIVE: Carmelo Tovar is still quite weak. OBJECTIVE: VITAL SIGNS: She is afebrile. Heart rates in the 90s. Oximetry is 55% on high flow. LUNGS: Still remarkable for crackles. HEART: Regular rhythm. ABDOMEN: Soft. EXTREMITIES: Without edema. LABORATORY DATA: She had not had labs in 3 days. IMPRESSION: 1. Idiopathic pulmonary fibrosis with exacerbation. 2. Weakness and deconditioning. She has fallen back to a point that she was at before she had her transmetatarsal amputation with regard to weakness. She will need placement in a skilled facility once we get her out of here, but it is unclear how long it will take to get her weaned down to a point with oxygen therapy that we can consider moving her for therapy. I have talked to her family and tried to answer all their questions. This is actually a bad sign for her and probably means that she has less than a year in my opinion. I believe she is aware of this, but her son is now living with her and serving as her community development coordinator and I think she will continue to hang on for him. I do not think that she would want to go on if he was not here and I think she would be up for hospice, but hopefully she will rally a little bit, so we can get her home. Job ID: [id number]
[2019-05-02] MEDS: Lorazepam 1 MG TAB PO PRN ×2 (15:21→20:39)
[2019-05-02] MEDS: Simvastatin 5 MG TAB PO SCH (20:31)
[2019-05-02] MEDS: Montelukast Sodium 10 mg Tablet PO SCH (20:31)
[2019-05-02] MEDS: Temazepam 15 MG CAP PO SCH (20:31)
[2019-05-03] MEDS ORDERED: methylPREDNISolone Sod Succ 40 MG VIAL ONE ×2 (00:29→05:16)
[2019-05-03] MEDS ORDERED: Mometasone/Formoterol 120 PUFF INHALER ONE (06:12)
[2019-05-03] MEDS: Mometasone/Formoterol 120 PUFF INHALER INH SCH ×2 (06:52→20:34)
[2019-05-03] MEDS: Levothyroxine Sodium 50 MCG TAB PO SCH (10:08)
[2019-05-03] MEDS: methylPREDNISolone Sod Succ 40 MG VIAL IVP SCH ×5 (10:09→23:01)
[2019-05-03] MEDS: Apixaban 5 MG TAB PO SCH ×2 (10:12→20:58)
[2019-05-03] MEDS: Amoxicillin/Potassium Clav 875 MG TAB PO SCH ×2 (10:12→20:57)
[2019-05-03] MEDS: Furosemide 20 MG TAB PO SCH (10:13)
[2019-05-03] MEDS: Gabapentin 300 MG CAP PO SCH ×3 (10:13→20:57)
[2019-05-03] MEDS: Digoxin 0.125 MG TAB PO SCH (10:13)
[2019-05-03] MEDS: Ubidecarenone 50 MG CAP PO SCH (10:14)
[2019-05-03] MEDS: Saccharomyces boulardii 250 MG CAP PO SCH ×2 (10:14→20:57)
[2019-05-03] MEDS: Lorazepam 1 MG TAB PO PRN (10:36)
[2019-05-03] MEDS: NINTEDANIB ESYLATE 150 MG PO SCH ×4 (12:19→14:50)
--- NOTE | 2019-05-03 13:32 | PDOC.PN ---
- Subjective Encounter Start Date: 05/03/19 Encounter Start Time: 09:00 Patient seen and examined. No new complaints. No overnight events pt reports that she gets dyspnea very easily with exertion, she is overall little better - Objective Resuscitation Status - Order Detail: 04/30/19 15:11 Resuscitation Status Routine Resuscitation Status: DNAR: NO Resuscitation Discussed with: pt MAR Reviewed: Yes Vital Signs & Weight: Vital Signs (12 hours) Temp Pulse Resp BP Pulse Ox 05/03/19 12:00 98.1 F 103 H 31 H 112/64 94 L 05/03/19 10:13 107 H 05/03/19 08:00 97.8 F 76 24 H 136/74 98 05/03/19 06:52 75 23 H 98 Weight Admit Weight 112 lb 8 oz Weight 119 lb 6.4 oz Most Recent Monitor Data Heart Rate from ECG 104 NIBP 127/74 NIBP BP-Mean 91 Respiration from ECG 31 SpO2 93 I&O: 05/02/19 05/03/19 05/04/19 06:59 06:59 06:59 Intake Total 1774 650 Output Total 2400 1400 Balance -626 -750 Result Diagrams: 04/29/19 03:38 04/29/19 03:38 EKG Reviewed by me: Yes Phys Exam - Physical Examination Constitutional: NAD HEENT: PERRLA, moist MMs, sclera anicteric Neck: no JVD, supple bilateral fine rales Cardiovascular: RRR, no significant murmur, no rub Gastrointestinal: soft, non-tender, no distention, positive bowel sounds Musculoskeletal: no edema, pulses present Neurological: non-focal, normal sensation Lymphatic: no nodes Psychiatric: normal affect, A&O x 3 Skin: no rash, normal turgor Dx/Plan (1) Acute on chronic respiratory failure with hypoxemia Code(s): J96.21 - ACUTE AND CHRONIC RESPIRATORY FAILURE WITH HYPOXIA Status: Acute Comment: slowly improving (2) Abnormal LFTs Code(s): R94.5 - ABNORMAL RESULTS OF LIVER FUNCTION STUDIES Status: Acute Comment: Imroving, suspecting from hypoxia related liver injury (3) Lactic acidosis Code(s): E87.2 - ACIDOSIS Status: Resolved Comment: due to hypoxia (4) Type [address] elevation Code(s): I21.A1 - MYOCARDIAL INFARCTION TYPE 2 Status: Acute Comment: due to hypoxia (5) Anxiety and depression Code(s): F41.9 - ANXIETY DISORDER, UNSPECIFIED; F32.9 - MAJOR DEPRESSIVE DISORDER, SINGLE EPISODE, UNSPECIFIED Status: Chronic (6) Dyslipidemia Code(s): E78.5 - HYPERLIPIDEMIA, UNSPECIFIED Status: Chronic (7) GERD (gastroesophageal reflux disease) Code(s): K21.9 - GASTRO-ESOPHAGEAL REFLUX DISEASE WITHOUT ESOPHAGITIS Status: Chronic (8) Hypothyroidism Code(s): E03.9 - HYPOTHYROIDISM, UNSPECIFIED Status: Chronic (9) Protein-calorie malnutrition, moderate Code(s): E44.0 - MODERATE PROTEIN-CALORIE MALNUTRITION Status: Chronic (10) Pulmonary fibrosis Code(s): J84.10 - PULMONARY FIBROSIS, UNSPECIFIED Status: Chronic (11) Decubitus ulcer of coccygeal region, unstageable Code(s): L89.150 - PRESSURE ULCER OF SACRAL REGION, UNSTAGEABLE Status: Acute Comment: present on admission - Plan cont current plan of care, plan discussed w/ family, continue antibiotics, PT/OT , social services technician, respiratory therapy * continue solumderol * continue augmentin * ambulate as tolerated * rehab is best option but pt still thinking about it, she prefers home with home health * continue current optimum medical therapy for IPF * medication reviewed as below * symptomatic treatment. Review of Systems - Review of Systems Constitutional: weakness. negative: fever, chills, sweats, malaise, other ENT: negative: Ear Pain, Ear Discharge, Nose Pain, Nose Discharge, Nose Congestion, Mouth Pain, Mouth Swelling, Throat Pain, Throat Swelling, Other Respiratory: Cough, Shortness of Breath, SOB with Excertion. negative: Dry, Hemoptysis, Pleuritic Pain, Sputum, Wheezing Cardiovascular: negative: chest pain, palpitations, orthopnea, paroxysmal nocturnal dyspnea, edema, light headedness, other Gastrointestinal: negative: Nausea, Vomiting, Abdominal Pain, Diarrhea, Constipation, Melena, Hematochezia, Other Genitourinary: negative: Dysuria, Frequency, Incontinence, Hematuria, Retention , Other Musculoskeletal: negative: Neck Pain, Shoulder Pain, Arm Pain, Back Pain, Hand Pain, Leg Pain, Foot Pain, Other - Medications/Allergies Allergies/Adverse Reactions: Allergies Allergy/AdvReac Type Severity Reaction Status Date / Time acetaminophen [From Percocet] Allergy Verified 04/26/19 22:22 azithromycin [From Zithromax] Allergy Verified 02/14/19 17:48 iodine Allergy Verified 02/14/19 17:48 latex Allergy Rash Verified 02/14/19 17:48 oxycodone Allergy Verified 04/26/19 22:22 tramadol Allergy Verified 04/26/19 22:22 Medications: Current Medications Amoxicillin/Clavulanate Potassium (Augmentin) 875 mg PO Q12HR [facility] Last Admin: 05/03/19 10:12 Dose: 875 mg Apixaban (Eliquis) 5 mg PO BID [facility] Last Admin: 05/03/19 10:12 Dose: 5 mg Bisacodyl (Dulcolax) 10 mg PO DAILYPRN PRN PRN Reason: Constipation Coenzyme Q10 (Coenzyme Q10) 100 mg PO DAILY [facility] Last Admin: 05/03/19 10:14 Dose: 100 mg Digoxin (Lanoxin) 0.125 mg PO DAILY [facility] Last Admin: 05/03/19 10:13 Dose: 0.125 mg Furosemide (Lasix) 20 mg PO QAM [facility] Last Admin: 05/03/19 10:13 Dose: 20 mg Gabapentin (Neurontin) 300 mg PO TID [facility] Last Admin: 05/03/19 10:13 Dose: 300 mg Levothyroxine Sodium (Synthroid) 50 mcg PO 0600 [facility] Last Admin: 05/03/19 10:08 Dose: Not Given Lorazepam (Ativan) 1 mg PO Q4H PRN PRN Reason: Anxiety/Agitation Last Admin: 05/03/19 10:36 Dose: 1 mg Methylprednisolone Sodium Succinate (Solu-Medrol) 20 mg IVP Q6HR [facility] Last Admin: 05/03/19 13:15 Dose: 20 mg Metoprolol Succinate (Toprol Xl) 50 mg PO DAILY [facility] Last Admin: 05/03/19 10:13 Dose: 50 mg Miscellaneous Medication (Pharmacy To Dose) 1 each IVPB PRN PRN PRN Reason: Pharmacy to dose Mometasone Furoate/Formoterol Fumar (Dulera 200 Mcg/5 Mcg Inhaler) 2 puff INH BID-RT [facility] Last Admin: 05/03/19 06:52 Dose: 2 puff Montelukast Sodium (Singulair) 10 mg PO HS [facility] Last Admin: 05/02/19 20:31 Dose: 10 mg Pantoprazole Sodium (Protonix) 40 mg PO DAILY [facility] Last Admin: 05/03/19 10:13 Dose: 40 mg Saccharomyces Boulardii (Florastor) 250 mg PO BID [facility] Last Admin: 05/03/19 10:14 Dose: 250 mg Simethicone (Mylicon Chewable) 80 mg PO [facility] PRN PRN Reason: Gas Pain Simvastatin (Zocor) 5 mg PO [facility] Last Admin: 05/02/19 20:31 Dose: 5 mg Sodium Chloride (Flush - Normal Saline) 10 ml IVF Q12HR [facility] Last Admin: 05/03/19 10:14 Dose: 10 ml Sodium Chloride (Flush - Normal Saline) 10 ml IVF PRN PRN PRN Reason: Saline Flush Last Admin: 05/03/19 13:15 Dose: 10 ml Sterile Water (Bacteriostatic Water) 1 ml FS PRN PRN PRN Reason: RECONSTITUTION Temazepam (Restoril) 15 mg PO [facility] Last Admin: 05/02/19 20:31 Dose: 15 mg
--- NOTE | 2019-05-03 15:57 | PRG ---
DATE OF SERVICE: 05/03/2019 SUBJECTIVE: Carmelo Tovar says she is feeling better today. She had 4 cans of Ensure yesterday plus she is eating more. She sat up for hours she said. OBJECTIVE: VITAL SIGNS: She is afebrile, heart rate is 103, respiratory rate is 20s to low 30s, she is now on 34% FiO2. VITAL SIGNS: Blood pressure is 112/64. LUNGS: Remarkable for crackles. HEART: Regular rhythm. ABDOMEN: Soft. EXTREMITIES: Unchanged. LABORATORY DATA: No new lab. She needs a CBC and a chem-7 in the morning. IMPRESSION AND PLAN: Idiopathic pulmonary fibrosis flare, slowly improving. I met with family, answered all their questions. She will need mcc placement at some point. We will see her again in the morning. Job ID: [id number]
[2019-05-03] MEDS: Temazepam 15 MG CAP PO SCH (20:57)
[2019-05-03] MEDS: Simvastatin 5 MG TAB PO SCH (20:58)
[2019-05-03] MEDS: Montelukast Sodium 10 mg Tablet PO SCH (20:58)
[2019-05-04] MEDS: Levothyroxine Sodium 50 MCG TAB PO SCH (05:49)
[2019-05-04] MEDS: methylPREDNISolone Sod Succ 40 MG VIAL IVP SCH ×2 (05:49→09:14)
[2019-05-04] MEDS: Digoxin 0.125 MG TAB PO SCH (09:13)
[2019-05-04] MEDS: Furosemide 20 MG TAB PO SCH (09:14)
[2019-05-04] MEDS: Lorazepam 1 MG TAB PO PRN ×2 (09:14→15:40)
[2019-05-04] MEDS: Amoxicillin/Potassium Clav 875 MG TAB PO SCH ×2 (09:14→21:05)
[2019-05-04] MEDS: Gabapentin 300 MG CAP PO SCH ×3 (09:14→21:06)
[2019-05-04] MEDS: Apixaban 5 MG TAB PO SCH ×2 (09:14→21:06)
[2019-05-04] MEDS: Saccharomyces boulardii 250 MG CAP PO SCH ×2 (09:14→21:05)
[2019-05-04] MEDS: Ubidecarenone 50 MG CAP PO SCH (09:14)
[2019-05-04] MEDS: Mometasone/Formoterol 120 PUFF INHALER INH SCH ×2 (09:37→19:38)
[2019-05-04] MEDS ORDERED: Clotrimazole 1% Cream 15 GM TUBE TOP SCH (11:00)
[2019-05-04] MEDS: Clotrimazole 1 % Cream 30 GM TUBE TOP SCH ×2 (11:45→21:23)
--- NOTE | 2019-05-04 12:08 | PRG ---
DATE OF SERVICE: 05/04/2019 SUBJECTIVE: Carmelo Tovar feels stronger, she did more yesterday. We will try to get her off high-flow to regular nasal cannula and wean her down to saturations in the low 90s. Heart is rate in 80s. She is resting comfortably. She appears much better than she looked 3 to 4 days ago. OBJECTIVE: LUNGS: Still remarkable for diffuse crackles. HEART: Regular rhythm. ABDOMEN: Soft. LABORATORY DATA: I ordered lab for tomorrow. IMPRESSION: 1. Idiopathic pulmonary fibrosis with a flare. 2. Deconditioning. 3. History of atrial fibrillation. 4. 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 5. Deconditioning. She will need placement in a skilled unit next week. She is converted to p.o. medications. We will continue to increase her activity. She will remain in intermediate care unit. Job ID: [id number]
--- NOTE | 2019-05-04 12:41 | PDOC.PN ---
- Subjective Encounter Start Date: 05/04/19 Encounter Start Time: 11:00 pt is somewhat better than before, now able to talk, less desaturation, - Objective Resuscitation Status - Order Detail: 04/30/19 15:11 Resuscitation Status Routine Resuscitation Status: DNAR: NO Resuscitation Discussed with: pt JOE Reviewed: Yes Vital Signs & Weight: Vital Signs (12 hours) Temp Pulse Resp Pulse Ox 05/04/19 11:00 99 05/04/19 09:38 100 05/04/19 09:37 86 24 H 05/04/19 09:13 95 05/04/19 08:00 95 05/04/19 07:00 96.6 F L 05/04/19 03:58 97.6 F Weight Admit Weight 112 lb 8 oz Weight 119 lb 6.4 oz Most Recent Monitor Data Heart Rate from ECG 80 NIBP 127/65 NIBP BP-Mean 85 Respiration from ECG 23 SpO2 100 I&O: 05/03/19 05/04/19 05/05/19 06:59 06:59 06:59 Intake Total 650 2299 Output Total 1400 2425 Balance -750 -126 Result Diagrams: 04/29/19 03:38 04/29/19 03:38 EKG Reviewed by me: Yes (nsr) Phys Exam - Physical Examination Constitutional: NAD HEENT: PERRLA, moist MMs, sclera anicteric Neck: no JVD, supple bilateral fine rales+ Cardiovascular: RRR, no significant murmur, no rub Gastrointestinal: soft, non-tender, no distention, positive bowel sounds Musculoskeletal: no edema, pulses present Neurological: non-focal, normal sensation Lymphatic: no nodes Psychiatric: normal affect, A&O x 3 Skin: no rash, normal turgor Dx/Plan (1) Acute on chronic respiratory failure with hypoxemia Code(s): J96.21 - ACUTE AND CHRONIC RESPIRATORY FAILURE WITH HYPOXIA Status: Acute Comment: slowly improving (2) Abnormal LFTs Code(s): R94.5 - ABNORMAL RESULTS OF LIVER FUNCTION STUDIES Status: Acute Comment: Imroving, suspecting from hypoxia related liver injury (3) Lactic acidosis Code(s): E87.2 - ACIDOSIS Status: Resolved Comment: due to hypoxia (4) Type [address] elevation Code(s): I21.A1 - MYOCARDIAL INFARCTION TYPE 2 Status: Acute Comment: due to hypoxia (5) Anxiety and depression Code(s): F41.9 - ANXIETY DISORDER, UNSPECIFIED; F32.9 - MAJOR DEPRESSIVE DISORDER, SINGLE EPISODE, UNSPECIFIED Status: Chronic (6) Dyslipidemia Code(s): E78.5 - HYPERLIPIDEMIA, UNSPECIFIED Status: Chronic (7) GERD (gastroesophageal reflux disease) Code(s): K21.9 - GASTRO-ESOPHAGEAL REFLUX DISEASE WITHOUT ESOPHAGITIS Status: Chronic (8) Hypothyroidism Code(s): E03.9 - HYPOTHYROIDISM, UNSPECIFIED Status: Chronic (9) Protein-calorie malnutrition, moderate Code(s): E44.0 - MODERATE PROTEIN-CALORIE MALNUTRITION Status: Chronic (10) Pulmonary fibrosis Code(s): J84.10 - PULMONARY FIBROSIS, UNSPECIFIED Status: Chronic (11) Decubitus ulcer of coccygeal region, unstageable Code(s): L89.150 - PRESSURE ULCER OF SACRAL REGION, UNSTAGEABLE Status: Acute Comment: present on admission (12) Physical deconditioning Code(s): R53.81 - OTHER MALAISE Status: Chronic (13) PAF (paroxysmal atrial fibrillation) Code(s): I48.0 - PAROXYSMAL ATRIAL FIBRILLATION Status: Chronic - Plan cont current plan of care, plan discussed w/ family, continue antibiotics, PT/OT , social media marketing specialist, respiratory therapy * currently on solumedrol 40 mg iv daily * continue augmentin * medication reviewed as below * symptomatic treatment * wean from high flow oxygen as tolerated * will need SNU on discharge. Review of Systems - Review of Systems Constitutional: weakness. negative: fever, chills, sweats, malaise, other Respiratory: Cough, Shortness of Breath, SOB with Excertion. negative: Dry, Hemoptysis, Pleuritic Pain, Sputum, Wheezing Cardiovascular: negative: chest pain, palpitations, orthopnea, paroxysmal nocturnal dyspnea, edema, light headedness, other Gastrointestinal: negative: Nausea, Vomiting, Abdominal Pain, Diarrhea, Constipation, Melena, Hematochezia, Other Genitourinary: negative: Dysuria, Frequency, Incontinence, Hematuria, Retention , Other Musculoskeletal: negative: Neck Pain, Shoulder Pain, Arm Pain, Back Pain, Hand Pain, Leg Pain, Foot Pain, Other - Medications/Allergies Allergies/Adverse Reactions: Allergies Allergy/AdvReac Type Severity Reaction Status Date / Time acetaminophen [From Percocet] Allergy Verified 04/26/19 22:22 azithromycin [From Zithromax] Allergy Verified 02/14/19 17:48 iodine Allergy Verified 02/14/19 17:48 latex Allergy Rash Verified 02/14/19 17:48 oxycodone Allergy Verified 04/26/19 22:22 tramadol Allergy Verified 04/26/19 22:22 Medications: Current Medications Amoxicillin/Clavulanate Potassium (Augmentin) 875 mg PO Q12HR [facility] Last Admin: 05/04/19 09:14 Dose: 875 mg Apixaban (Eliquis) 5 mg PO BID [facility] Last Admin: 05/04/19 09:14 Dose: 5 mg Bisacodyl (Dulcolax) 10 mg PO DAILYPRN PRN PRN Reason: Constipation Clotrimazole (Lotrimin 1% Cream) 0 gm TOP BID [facility] Last Admin: 05/04/19 11:45 Dose: 1 applic Coenzyme Q10 (Coenzyme Q10) 100 mg PO DAILY [facility] Last Admin: 05/04/19 09:14 Dose: 100 mg Digoxin (Lanoxin) 0.125 mg PO DAILY [facility] Last Admin: 05/04/19 09:13 Dose: 0.125 mg Furosemide (Lasix) 20 mg PO QAM [facility] Last Admin: 05/04/19 09:14 Dose: 20 mg Gabapentin (Neurontin) 300 mg PO TID [facility] Last Admin: 05/04/19 09:14 Dose: 300 mg Levothyroxine Sodium (Synthroid) 50 mcg PO 0600 [facility] Last Admin: 05/04/19 05:49 Dose: 50 mcg Lorazepam (Ativan) 1 mg PO Q4H PRN PRN Reason: Anxiety/Agitation Last Admin: 05/04/19 09:14 Dose: 1 mg Methylprednisolone Sodium Succinate (Solu-Medrol) 40 mg IVP DAILY [facility] Last Admin: 05/04/19 09:14 Dose: 40 mg Metoprolol Succinate (Toprol Xl) 50 mg PO DAILY [facility] Last Admin: 05/04/19 09:14 Dose: 50 mg Mometasone Furoate/Formoterol Fumar (Dulera 200 Mcg/5 Mcg Inhaler) 2 puff INH BID-RT [facility] Last Admin: 05/04/19 09:37 Dose: 2 puff Montelukast Sodium (Singulair) 10 mg PO HS [facility] Last Admin: 05/03/19 20:58 Dose: 10 mg Pantoprazole Sodium (Protonix) 40 mg PO DAILY [facility] Last Admin: 05/04/19 09:14 Dose: 40 mg Saccharomyces Boulardii (Florastor) 250 mg PO BID [facility] Last Admin: 05/04/19 09:14 Dose: 250 mg Simethicone (Mylicon Chewable) 80 mg PO [facility] PRN PRN Reason: Gas Pain Simvastatin (Zocor) 5 mg PO [facility] Last Admin: 05/03/19 20:58 Dose: 5 mg Sodium Chloride (Flush - Normal Saline) 10 ml IVF Q12HR [facility] Last Admin: 05/04/19 09:34 Dose: 10 ml Sodium Chloride (Flush - Normal Saline) 10 ml IVF PRN PRN PRN Reason: Saline Flush Last Admin: 05/03/19 13:15 Dose: 10 ml Sterile Water (Bacteriostatic Water) 1 ml FS PRN PRN PRN Reason: RECONSTITUTION Temazepam (Restoril) 15 mg PO [facility] Last Admin: 05/03/19 20:57 Dose: 15 mg
[2019-05-04] MEDS: Temazepam 15 MG CAP PO SCH (21:06)
[2019-05-04] MEDS: Simvastatin 5 MG TAB PO SCH (21:06)
[2019-05-04] MEDS: Montelukast Sodium 10 mg Tablet PO SCH (21:06)
[2019-05-05] MEDS: Levothyroxine Sodium 50 MCG TAB PO SCH (06:11)
[2019-05-05 07:34] LABS: BUN (Urea Nitrogen) 34 mg/dL (9.8-20.1); Calc. Creatinine Clearance 77 mL/min (70-130); Calcium 9.5 mg/dL (7.8-10.44); Estimated GFR-MDRD Greater than 90; Glucose 80 mg/dL (83-110)
[2019-05-05] MEDS: Mometasone/Formoterol 120 PUFF INHALER INH SCH ×2 (07:36→19:41)
[2019-05-05 07:43] LABS: Anion Gap 12 mmol/L (10-20); Carbon Dioxide 35 mmol/L (23-31); Chloride 94 mmol/L (98-107); Potassium 4.6 mmol/L (3.5-5.1); Sodium 136 mmol/L (136-145)
[2019-05-05 07:47] LABS: Hemoglobin 10.3 g/dL (12.0-16.0); Mean Corpuscular HGB CONC 29.2 g/dL (32.0-36.0); Mean Corpuscular Hemoglobin 22.2 pg (27.0-31.0); Mean Corpuscular Volume 76.2 fL (78.0-98.0); Platelet Count 289 thou/uL (130-400); RBC Distribution Width 17.1 % (11.5-14.5); Red Blood Cell (RBC) Count 4.62 mill/uL (4.20-5.40)
[2019-05-05 07:50] LABS: Anisocytosis SLIGHT = 6-15 cells (100X) (0-5/hpf); Band 1 % (5-11); Eosinophils 1 % (0-10); Lymphocytes 20 % (21-51); Monocytes 8 % (0-10); Neutrophil 70 % (42-75)
[2019-05-05 07:51] LABS: Hypochromia SLIGHT = 6-15 cells (100X) (0-5/hpf); MDiff Complete? YES
[2019-05-05] MEDS: Apixaban 5 MG TAB PO SCH ×2 (09:52→21:51)
[2019-05-05] MEDS: Furosemide 20 MG TAB PO SCH (09:52)
[2019-05-05] MEDS: methylPREDNISolone Sod Succ 40 MG VIAL IVP SCH (09:52)
[2019-05-05] MEDS: Amoxicillin/Potassium Clav 875 MG TAB PO SCH ×2 (09:52→21:51)
[2019-05-05] MEDS: Digoxin 0.125 MG TAB PO SCH (09:52)
[2019-05-05] MEDS: Saccharomyces boulardii 250 MG CAP PO SCH ×2 (09:52→21:50)
[2019-05-05] MEDS: Ubidecarenone 50 MG CAP PO SCH (09:53)
[2019-05-05] MEDS: Gabapentin 300 MG CAP PO SCH ×3 (09:53→21:50)
[2019-05-05] MEDS: Lorazepam 1 MG TAB PO PRN (10:09)
[2019-05-05] MEDS: Clotrimazole 1 % Cream 30 GM TUBE TOP SCH ×2 (10:12→21:51)
--- NOTE | 2019-05-05 11:47 | PDOC.PN ---
- Subjective Encounter Start Date: 05/05/19 Encounter Start Time: 10:15 Patient seen and examined. No new complaints. No overnight events pt has daily some improvement, but still overall weak - Objective Resuscitation Status - Order Detail: 04/30/19 15:11 Resuscitation Status Routine Resuscitation Status: DNAR: NO Resuscitation Discussed with: pt MAR Reviewed: Yes Vital Signs & Weight: Vital Signs (12 hours) Temp Pulse Pulse Ox 05/05/19 11:36 96.2 F L 05/05/19 09:52 88 05/05/19 07:38 99 05/05/19 07:13 97.5 F L 05/05/19 02:45 98 05/05/19 00:07 98.2 F Weight Admit Weight 112 lb 8 oz Weight 119 lb 3.2 oz Most Recent Monitor Data Heart Rate from ECG 89 NIBP 110/61 NIBP BP-Mean 77 Respiration from ECG 22 SpO2 100 I&O: 05/04/19 05/05/19 05/06/19 06:59 06:59 06:59 Intake Total 2299 2691 Output Total 2425 1225 Balance -126 1466 Result Diagrams: 05/05/19 06:43 05/05/19 06:43 EKG Reviewed by me: Yes Phys Exam - Physical Examination Constitutional: NAD HEENT: PERRLA, moist MMs, sclera anicteric Neck: no JVD, supple Respiratory: no wheezing, no rhonchi bilateral fine rales Cardiovascular: RRR, no significant murmur, no rub Gastrointestinal: soft, non-tender, no distention, positive bowel sounds Musculoskeletal: no edema, pulses present Neurological: non-focal, normal sensation Lymphatic: no nodes Psychiatric: normal affect Skin: no rash, normal turgor Dx/Plan (1) Acute on chronic respiratory failure with hypoxemia Code(s): J96.21 - ACUTE AND CHRONIC RESPIRATORY FAILURE WITH HYPOXIA Status: Acute Comment: slowly improving (2) Abnormal LFTs Code(s): R94.5 - ABNORMAL RESULTS OF LIVER FUNCTION STUDIES Status: Acute Comment: Imroving, suspecting from hypoxia related liver injury (3) Lactic acidosis Code(s): E87.2 - ACIDOSIS Status: Resolved Comment: due to hypoxia (4) Type [address] elevation Code(s): I21.A1 - MYOCARDIAL INFARCTION TYPE 2 Status: Acute Comment: due to hypoxia (5) Anxiety and depression Code(s): F41.9 - ANXIETY DISORDER, UNSPECIFIED; F32.9 - MAJOR DEPRESSIVE DISORDER, SINGLE EPISODE, UNSPECIFIED Status: Chronic (6) Dyslipidemia Code(s): E78.5 - HYPERLIPIDEMIA, UNSPECIFIED Status: Chronic (7) GERD (gastroesophageal reflux disease) Code(s): K21.9 - GASTRO-ESOPHAGEAL REFLUX DISEASE WITHOUT ESOPHAGITIS Status: Chronic (8) Hypothyroidism Code(s): E03.9 - HYPOTHYROIDISM, UNSPECIFIED Status: Chronic (9) Protein-calorie malnutrition, moderate Code(s): E44.0 - MODERATE PROTEIN-CALORIE MALNUTRITION Status: Chronic (10) Pulmonary fibrosis Code(s): J84.10 - PULMONARY FIBROSIS, UNSPECIFIED Status: Chronic (11) Decubitus ulcer of coccygeal region, unstageable Code(s): L89.150 - PRESSURE ULCER OF SACRAL REGION, UNSTAGEABLE Status: Acute Comment: present on admission (12) Physical deconditioning Code(s): R53.81 - OTHER MALAISE Status: Chronic (13) PAF (paroxysmal atrial fibrillation) Code(s): I48.0 - PAROXYSMAL ATRIAL FIBRILLATION Status: Chronic - Plan cont current plan of care, plan discussed w/ family, continue antibiotics, respiratory therapy * medication reviewed as below * symptomatic treatment * continue IV solumedrol daily * continue augmentin * supportive care * nutritional support * discussed with family bedside * eventual placement to [facility] next week. Review of Systems - Review of Systems Constitutional: weakness, malaise. negative: fever, chills, sweats, other ENT: negative: Ear Pain, Ear Discharge, Nose Pain, Nose Discharge, Nose Congestion, Mouth Pain, Mouth Swelling, Throat Pain, Throat Swelling, Other Respiratory: Cough, Shortness of Breath, SOB with Excertion Cardiovascular: negative: chest pain, palpitations, orthopnea, paroxysmal nocturnal dyspnea, edema, light headedness, other Gastrointestinal: negative: Nausea, Vomiting, Abdominal Pain, Diarrhea, Constipation, Melena, Hematochezia, Other Genitourinary: negative: Dysuria, Frequency, Incontinence, Hematuria, Retention , Other Musculoskeletal: negative: Neck Pain, Shoulder Pain, Arm Pain, Back Pain, Hand Pain, Leg Pain, Foot Pain, Other - Medications/Allergies Allergies/Adverse Reactions: Allergies Allergy/AdvReac Type Severity Reaction Status Date / Time acetaminophen [From Percocet] Allergy Verified 04/26/19 22:22 azithromycin [From Zithromax] Allergy Verified 02/14/19 17:48 iodine Allergy Verified 02/14/19 17:48 latex Allergy Rash Verified 02/14/19 17:48 oxycodone Allergy Verified 04/26/19 22:22 tramadol Allergy Verified 04/26/19 22:22 Medications: Current Medications Amoxicillin/Clavulanate Potassium (Augmentin) 875 mg PO Q12HR [facility] Last Admin: 05/05/19 09:52 Dose: 875 mg Apixaban (Eliquis) 5 mg PO BID [facility] Last Admin: 05/05/19 09:52 Dose: 5 mg Bisacodyl (Dulcolax) 10 mg PO DAILYPRN PRN PRN Reason: Constipation Clotrimazole (Lotrimin 1% Cream) 0 gm TOP BID [facility] Last Admin: 05/05/19 10:12 Dose: 1 applic Coenzyme Q10 (Coenzyme Q10) 100 mg PO DAILY [facility] Last Admin: 05/05/19 09:53 Dose: 100 mg Digoxin (Lanoxin) 0.125 mg PO DAILY [facility] Last Admin: 05/05/19 09:52 Dose: 0.125 mg Furosemide (Lasix) 20 mg PO QAM [facility] Last Admin: 05/05/19 09:52 Dose: 20 mg Gabapentin (Neurontin) 300 mg PO TID [facility] Last Admin: 05/05/19 09:53 Dose: 300 mg Levothyroxine Sodium (Synthroid) 50 mcg PO 0600 [facility] Last Admin: 05/05/19 06:11 Dose: 50 mcg Lorazepam (Ativan) 1 mg PO Q4H PRN PRN Reason: Anxiety/Agitation Last Admin: 05/05/19 10:09 Dose: 1 mg Methylprednisolone Sodium Succinate (Solu-Medrol) 40 mg IVP DAILY [facility] Last Admin: 05/05/19 09:52 Dose: 40 mg Metoprolol Succinate (Toprol Xl) 50 mg PO DAILY [facility] Last Admin: 05/05/19 10:13 Dose: 50 mg Mometasone Furoate/Formoterol Fumar (Dulera 200 Mcg/5 Mcg Inhaler) 2 puff INH BID-RT [facility] Last Admin: 05/05/19 07:36 Dose: 2 puff Montelukast Sodium (Singulair) 10 mg PO HS [facility] Last Admin: 05/04/19 21:06 Dose: 10 mg Pantoprazole Sodium (Protonix) 40 mg PO DAILY [facility] Last Admin: 05/05/19 09:52 Dose: 40 mg Saccharomyces Boulardii (Florastor) 250 mg PO BID [facility] Last Admin: 05/05/19 09:52 Dose: 250 mg Simethicone (Mylicon Chewable) 80 mg PO [facility] PRN PRN Reason: Gas Pain Simvastatin (Zocor) 5 mg PO [facility] Last Admin: 05/04/19 21:06 Dose: 5 mg Sodium Chloride (Flush - Normal Saline) 10 ml IVF Q12HR [facility] Last Admin: 05/05/19 09:53 Dose: 10 ml Sodium Chloride (Flush - Normal Saline) 10 ml IVF PRN PRN PRN Reason: Saline Flush Last Admin: 05/03/19 13:15 Dose: 10 ml Sterile Water (Bacteriostatic Water) 1 ml FS PRN PRN PRN Reason: RECONSTITUTION Temazepam (Restoril) 15 mg PO [facility] Last Admin: 05/04/19 21:06 Dose: 15 mg
--- NOTE | 2019-05-05 14:52 | PRG ---
DATE OF SERVICE: 05/05/2019 SERVICE: Pulmonary Medicine. INTERVAL HISTORY: The patient is doing okay from respiratory standpoint. She indicates she is breathing a little bit better. She denies any current fevers or chills. She gets into coughing fits. When she can get a plug mucus up, sometimes her breathing improves. PHYSICAL EXAMINATION: VITAL SIGNS: Afebrile, pulse 86, blood pressure 105/63, respirations 30, and saturation 98% on 5 L nasal cannula. GENERAL: The patient is awake and alert, in no apparent distress. LUNGS: There is very good air entry. Not much of a prolonged expiratory phase. Crackles and rhonchi are both present. No wheezing. HEART: Normal rate, regular. ABDOMEN: Soft, nontender, and nondistended. Bowel sounds are positive. MUSCULOSKELETAL: No cyanosis or clubbing. No pitting in bilateral lower extremities. NEUROLOGIC: Grossly nonfocal. LABORATORY DATA: WBC 16.0, hemoglobin 10.3, and platelets 289,000. Basic metabolic profile is unremarkable except for a bicarb of 35. Urinalysis is unremarkable. Vancomycin trough 3.1. Blood cultures x2 are unremarkable. ASSESSMENT: 1. Acute on chronic hypoxic respiratory failure. 2. Idiopathic pulmonary fibrosis with acute exacerbation. 3. Bronchiectasis with acute exacerbation. DISCUSSION AND PLAN: I will initiate some physiotherapy with the patient. She will continue to work on mobilization efforts. Pulmonary/Critical Care will continue to follow along in this location. Job ID: [id number]
[2019-05-05] MEDS: Sodium Chloride 3% (15 ML) NEB NEB SCH (19:48)
[2019-05-05] MEDS ORDERED: Calcium Carbonate 500 MG ChewTAB PO PRN (19:51)
[2019-05-05] MEDS: Temazepam 15 MG CAP PO SCH (21:50)
[2019-05-05] MEDS: Montelukast Sodium 10 mg Tablet PO SCH (21:50)
[2019-05-05] MEDS: Simvastatin 5 MG TAB PO SCH (21:51)
[2019-05-06] MEDS: Levothyroxine Sodium 50 MCG TAB PO SCH (06:38)
[2019-05-06] MEDS: Sodium Chloride 3% (15 ML) NEB NEB SCH ×2 (07:42→18:54)
[2019-05-06] MEDS: Mometasone/Formoterol 120 PUFF INHALER INH SCH ×2 (07:44→18:54)
[2019-05-06] MEDS: Saccharomyces boulardii 250 MG CAP PO SCH ×2 (09:31→20:47)
[2019-05-06] MEDS: Furosemide 20 MG TAB PO SCH (09:31)
[2019-05-06] MEDS: Apixaban 5 MG TAB PO SCH ×2 (09:31→20:47)
[2019-05-06] MEDS: Digoxin 0.125 MG TAB PO SCH (09:31)
[2019-05-06] MEDS: methylPREDNISolone Sod Succ 40 MG VIAL IVP SCH (09:31)
[2019-05-06] MEDS: Ubidecarenone 50 MG CAP PO SCH (09:31)
[2019-05-06] MEDS: Amoxicillin/Potassium Clav 875 MG TAB PO SCH ×2 (09:32→20:47)
[2019-05-06] MEDS: Gabapentin 300 MG CAP PO SCH ×3 (09:32→20:47)
[2019-05-06] MEDS: Clotrimazole 1 % Cream 30 GM TUBE TOP SCH ×2 (09:33→20:48)
[2019-05-06] MEDS: Lorazepam 1 MG TAB PO PRN ×2 (10:04→22:20)
--- NOTE | 2019-05-06 10:42 | PRG ---
DATE OF SERVICE: 05/06/2019 SERVICE: Pulmonary Medicine. INTERVAL HISTORY: The patient is doing great from respiratory standpoint. Breathing comfortably. She indicates that her strength is improving. Physiotherapy is helping to liberate some sputum. Otherwise, she has no specific complaints today. PHYSICAL EXAMINATION: VITAL SIGNS: Afebrile, pulse 76, blood pressure is 101/68, respirations 19, saturation 100% on 4 L nasal cannula. GENERAL: The patient is awake and alert, in no apparent distress. LUNGS: Extensive crackles and rhonchi are present. There is no prolonged expiratory phase. No wheezing is appreciated. HEART: Normal rate, regular. ABDOMEN: Soft, nontender, nondistended. Bowel sounds are positive. MUSCULOSKELETAL: No cyanosis or clubbing. There is no pitting in the bilateral lower extremities. NEUROLOGIC: Grossly nonfocal. LABORATORY DATA: Blood cultures x2 are unremarkable to date. ASSESSMENT: 1. Acute on chronic hypoxic respiratory failure. 2. Idiopathic pulmonary fibrosis with acute exacerbation. 3. Bronchiectasis with acute exacerbation. DISCUSSION AND PLAN: We will continue our physiotherapy, and mobilization efforts. We will continue our antibiotics. Dr. Cueto will assume care in the morning. Pulmonary/Critical Care will continue to follow if the patient remains in this location. Job ID: [id number]
--- NOTE | 2019-05-06 11:41 | PDOC.PN ---
- Subjective Encounter Start Date: 05/06/19 Encounter Start Time: 10:15 Patient seen and examined. No new complaints. No overnight events - Objective Resuscitation Status - Order Detail: 04/30/19 15:11 Resuscitation Status Routine Resuscitation Status: DNAR: NO Resuscitation Discussed with: pt JOE Reviewed: Yes Vital Signs & Weight: Vital Signs (12 hours) Temp Pulse Resp Pulse Ox 05/06/19 11:08 97.9 F 05/06/19 09:31 76 05/06/19 07:51 100 05/06/19 07:47 99 05/06/19 07:46 76 19 99 05/06/19 07:42 74 19 99 05/06/19 07:18 97.2 F L 05/06/19 04:00 97 F L 05/06/19 02:42 100 05/06/19 01:21 97 05/05/19 23:41 98.2 F Weight Admit Weight 112 lb 8 oz Weight 116 lb 1.6 oz Most Recent Monitor Data Heart Rate from ECG 83 NIBP 91/51 NIBP BP-Mean 64 Respiration from ECG 10 SpO2 98 I&O: 05/05/19 05/06/19 05/07/19 06:59 06:59 06:59 Intake Total 2691 1680 Output Total 1225 2200 Balance 1466 -520 Result Diagrams: 05/05/19 06:43 05/05/19 06:43 EKG Reviewed by me: Yes Phys Exam - Physical Examination Constitutional: NAD HEENT: PERRLA, moist MMs, sclera anicteric Neck: no JVD, supple Respiratory: no wheezing, no rhonchi bilateal fine rales Cardiovascular: RRR, no significant murmur, no rub Gastrointestinal: soft, non-tender, no distention, positive bowel sounds Musculoskeletal: no edema, pulses present Neurological: non-focal, normal sensation Lymphatic: no nodes Psychiatric: normal affect, A&O x 3 Skin: no rash, normal turgor Dx/Plan (1) Acute on chronic respiratory failure with hypoxemia Code(s): J96.21 - ACUTE AND CHRONIC RESPIRATORY FAILURE WITH HYPOXIA Status: Acute Comment: slowly improving (2) Abnormal LFTs Code(s): R94.5 - ABNORMAL RESULTS OF LIVER FUNCTION STUDIES Status: Acute Comment: Imroving, suspecting from hypoxia related liver injury (3) Lactic acidosis Code(s): E87.2 - ACIDOSIS Status: Resolved Comment: due to hypoxia (4) Type [address] elevation Code(s): I21.A1 - MYOCARDIAL INFARCTION TYPE 2 Status: Acute Comment: due to hypoxia (5) Anxiety and depression Code(s): F41.9 - ANXIETY DISORDER, UNSPECIFIED; F32.9 - MAJOR DEPRESSIVE DISORDER, SINGLE EPISODE, UNSPECIFIED Status: Chronic (6) Dyslipidemia Code(s): E78.5 - HYPERLIPIDEMIA, UNSPECIFIED Status: Chronic (7) GERD (gastroesophageal reflux disease) Code(s): K21.9 - GASTRO-ESOPHAGEAL REFLUX DISEASE WITHOUT ESOPHAGITIS Status: Chronic (8) Hypothyroidism Code(s): E03.9 - HYPOTHYROIDISM, UNSPECIFIED Status: Chronic (9) Protein-calorie malnutrition, moderate Code(s): E44.0 - MODERATE PROTEIN-CALORIE MALNUTRITION Status: Chronic (10) Pulmonary fibrosis Code(s): J84.10 - PULMONARY FIBROSIS, UNSPECIFIED Status: Chronic (11) Decubitus ulcer of coccygeal region, unstageable Code(s): L89.150 - PRESSURE ULCER OF SACRAL REGION, UNSTAGEABLE Status: Acute Comment: present on admission (12) Physical deconditioning Code(s): R53.81 - OTHER MALAISE Status: Chronic (13) PAF (paroxysmal atrial fibrillation) Code(s): I48.0 - PAROXYSMAL ATRIAL FIBRILLATION Status: Chronic - Plan cont current plan of care, plan discussed w/ family, continue antibiotics, PT/OT , social worker palliative care, respiratory therapy * no new recommendation, overall improving daily * continue solumderol daily, * continue augmentin * continue elliquis * medication reviewed as below * symptomatic treatment. Review of Systems - Review of Systems Constitutional: weakness. negative: fever, chills, sweats, malaise, other Respiratory: SOB with Excertion. negative: Cough, Dry, Shortness of Breath, Hemoptysis, Pleuritic Pain, Sputum, Wheezing Cardiovascular: negative: chest pain, palpitations, orthopnea, paroxysmal nocturnal dyspnea, edema, light headedness, other Gastrointestinal: negative: Nausea, Vomiting, Abdominal Pain, Diarrhea, Constipation, Melena, Hematochezia, Other Genitourinary: negative: Dysuria, Frequency, Incontinence, Hematuria, Retention , Other Musculoskeletal: negative: Neck Pain, Shoulder Pain, Arm Pain, Back Pain, Hand Pain, Leg Pain, Foot Pain, Other - Medications/Allergies Allergies/Adverse Reactions: Allergies Allergy/AdvReac Type Severity Reaction Status Date / Time acetaminophen [From Percocet] Allergy Verified 04/26/19 22:22 azithromycin [From Zithromax] Allergy Verified 02/14/19 17:48 iodine Allergy Verified 02/14/19 17:48 latex Allergy Rash Verified 02/14/19 17:48 oxycodone Allergy Verified 04/26/19 22:22 tramadol Allergy Verified 04/26/19 22:22 Medications: Current Medications Amoxicillin/Clavulanate Potassium (Augmentin) 875 mg PO Q12HR [facility] Last Admin: 05/06/19 09:32 Dose: 875 mg Apixaban (Eliquis) 5 mg PO BID [facility] Last Admin: 05/06/19 09:31 Dose: 5 mg Bisacodyl (Dulcolax) 10 mg PO DAILYPRN PRN PRN Reason: Constipation Calcium Carbonate (Tums) 500 mg PO BIDPRN PRN PRN Reason: . Last Admin: 05/05/19 20:21 Dose: 500 mg Clotrimazole (Lotrimin 1% Cream) 0 gm TOP BID [facility] Last Admin: 05/06/19 09:33 Dose: 1 applic Coenzyme Q10 (Coenzyme Q10) 100 mg PO DAILY [facility] Last Admin: 05/06/19 09:31 Dose: 100 mg Digoxin (Lanoxin) 0.125 mg PO DAILY [facility] Last Admin: 05/06/19 09:31 Dose: 0.125 mg Furosemide (Lasix) 20 mg PO QAM [facility] Last Admin: 05/06/19 09:31 Dose: 20 mg Gabapentin (Neurontin) 300 mg PO TID [facility] Last Admin: 05/06/19 09:32 Dose: 300 mg Levothyroxine Sodium (Synthroid) 50 mcg PO 0600 [facility] Last Admin: 05/06/19 06:38 Dose: 50 mcg Lorazepam (Ativan) 1 mg PO Q4H PRN PRN Reason: Anxiety/Agitation Last Admin: 05/06/19 10:04 Dose: 1 mg Methylprednisolone Sodium Succinate (Solu-Medrol) 40 mg IVP DAILY [facility] Last Admin: 05/06/19 09:31 Dose: 40 mg Metoprolol Succinate (Toprol Xl) 50 mg PO DAILY [facility] Last Admin: 05/06/19 09:31 Dose: 50 mg Mometasone Furoate/Formoterol Fumar (Dulera 200 Mcg/5 Mcg Inhaler) 2 puff INH BID-RT [facility] Last Admin: 05/06/19 07:44 Dose: 2 puff Montelukast Sodium (Singulair) 10 mg PO HS [facility] Last Admin: 05/05/19 21:50 Dose: 10 mg Pantoprazole Sodium (Protonix) 40 mg PO DAILY [facility] Last Admin: 05/06/19 09:32 Dose: 40 mg Saccharomyces Boulardii (Florastor) 250 mg PO BID [facility] Last Admin: 05/06/19 09:31 Dose: 250 mg Simethicone (Mylicon Chewable) 80 mg PO [facility] PRN PRN Reason: Gas Pain Simvastatin (Zocor) 5 mg PO HS [facility] Last Admin: 05/05/19 21:51 Dose: 5 mg Sodium Chloride (Flush - Normal Saline) 10 ml IVF Q12HR [facility] Last Admin: 05/06/19 09:32 Dose: 10 ml Sodium Chloride (Flush - Normal Saline) 10 ml IVF PRN PRN PRN Reason: Saline Flush Last Admin: 05/03/19 13:15 Dose: 10 ml Sodium Chloride (Sodium Chloride 3%) 15 ml NEB BID-RT [facility] Last Admin: 05/06/19 07:42 Dose: 15 ml Sterile Water (Bacteriostatic Water) 1 ml FS PRN PRN PRN Reason: RECONSTITUTION Temazepam (Restoril) 15 mg PO HS [facility] Last Admin: 05/05/19 21:50 Dose: 15 mg
[2019-05-06] MEDS: Montelukast Sodium 10 mg Tablet PO SCH (20:47)
[2019-05-06] MEDS: Temazepam 15 MG CAP PO SCH (20:47)
[2019-05-06] MEDS: Simvastatin 5 MG TAB PO SCH (20:47)
--- NOTE | 2019-05-07 07:27 | CT ---
PRELIMINARY REPORT/[facility]/EMERGENCY AFTER HOURS PROCEDURE: EXAM: CT Head Without Contrast EXAM DATE/TIME: 05/07/2019 3:42 AM CLINICAL HISTORY: 73 years old, female; Injury or trauma; Initial encounter; Blunt trauma (contusions or hematomas); Patient HX: S/P fall, PT fell and hit her head on the nurse's shoe TECHNIQUE: Imaging protocol: Axial computed tomography images of the head without contrast. COMPARISON: No relevant prior studies available. FINDINGS: Brain: Normal. No hemorrhage. Unremarkable white matter. No mass effect. Ventricles: Normal. No ventriculomegaly. Bones/joints: Unremarkable. No acute fracture. Sinuses: Visualized sinuses are unremarkable. No fluid levels. Mastoid air cells: Visualized mastoid air cells are well aerated. No mastoid effusion. Soft tissues: Unremarkable. IMPRESSION: No acute intracranial hemorrhage. Thank you for allowing us to participate in the care of your patient. Dictated and Authenticated by: Herve Gudino MD 05/07/2019 3:56 AM Central Time ([place] & [place]) FINAL REPORT Exam: BRAIN CT WITHOUT iv CONTRAST: No mass or bleed or other acute process. Stable from 12/11/2018. This report is in agreement with the preliminary report. Transcribed Date/Time: 05/07/2019 9:31 AM
[2019-05-07] MEDS: Sodium Chloride 3% (15 ML) NEB NEB SCH ×2 (07:30→18:21)
[2019-05-07] MEDS: Amoxicillin/Potassium Clav 875 MG TAB PO SCH ×2 (08:58→21:42)
[2019-05-07] MEDS: Ubidecarenone 50 MG CAP PO SCH (08:58)
[2019-05-07] MEDS: Saccharomyces boulardii 250 MG CAP PO SCH ×2 (08:59→21:42)
[2019-05-07] MEDS: Apixaban 5 MG TAB PO SCH ×2 (08:59→21:42)
[2019-05-07] MEDS: Digoxin 0.125 MG TAB PO SCH (08:59)
[2019-05-07] MEDS: Gabapentin 300 MG CAP PO SCH ×3 (09:00→21:41)
[2019-05-07] MEDS: Clotrimazole 1 % Cream 30 GM TUBE TOP SCH ×2 (09:00→21:41)
[2019-05-07] MEDS: Furosemide 20 MG TAB PO SCH (09:00)
[2019-05-07] MEDS: methylPREDNISolone Sod Succ 40 MG VIAL IVP SCH ×2 (09:00→12:14)
--- NOTE | 2019-05-07 13:07 | PRG ---
DATE OF SERVICE: 05/07/2019 SUBJECTIVE: Carmelo Tovar is in no distress. She fell last night. Her head CT showed no parenchymal brain bleed. I think this makes the decision to [facility] her [facility] easier. OBJECTIVE: VITAL SIGNS: Heart rate is 90, blood pressure 95/48, respiratory rate 24, oximetry is 95% on nasal cannula. LUNGS: Still remarkable for diffuse crackles. HEART: Regular rhythm. ABDOMEN: Soft and nontender. EXTREMITIES: Without edema. LABORATORY DATA: There is no new lab today. IMPRESSION: 1. Idiopathic pulmonary fibrosis, progressing, on Ofev. 2. Status post fall, striking her left cheek with no fractures or brain bleed. 3. Deconditioning. 4. 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 5. Bronchiectasis associated with her idiopathic pulmonary fibrosis. PLAN: Continue to work on getting her into a skilled unit. Continue out of bedtime physical therapy. We will switch her IV steroids to p.o. Job ID: [id number]
[2019-05-07] MEDS: Mometasone/Formoterol 120 PUFF INHALER INH SCH ×2 (17:54→18:22)
[2019-05-07 18:32] VITALS: BP 107/55
[2019-05-07] MEDS: Temazepam 15 MG CAP PO SCH (21:41)
[2019-05-07] MEDS: Simvastatin 5 MG TAB PO SCH (21:42)
[2019-05-07] MEDS: Montelukast Sodium 10 mg Tablet PO SCH (21:42)
--- NOTE | 2019-05-07 21:59 | PDOC.PN ---
- Subjective Encounter Start Date: 05/07/19 Encounter Start Time: 10:45 last night pt had fall and she had minor facial bruise, CT brain was done and unremarkable, - Objective Resuscitation Status - Order Detail: 04/30/19 15:11 Resuscitation Status Routine Resuscitation Status: DNAR: NO Resuscitation Discussed with: pt MAR Reviewed: Yes Vital Signs & Weight: Vital Signs (12 hours) Temp Pulse Pulse Pulse Resp BP BP 05/07/19 19:27 98.3 F 05/07/19 18:30 90 20 05/07/19 18:22 96 16 05/07/19 18:21 97 16 05/07/19 17:45 97 100 107/55 L 116/57 L 05/07/19 15:04 98.6 F 05/07/19 11:44 98.4 F Pulse Ox Pulse Ox Pulse Ox 05/07/19 19:27 05/07/19 18:30 97 05/07/19 18:22 98 05/07/19 18:21 98 05/07/19 17:45 95 90 L 05/07/19 15:04 05/07/19 11:44 Weight Admit Weight 112 lb 8 oz Weight 116 lb Most Recent Monitor Data Heart Rate from ECG 96 NIBP 107/55 NIBP BP-Mean 72 Respiration from ECG 35 SpO2 95 I&O: 05/06/19 05/07/19 05/08/19 06:59 06:59 06:59 Intake Total 1680 1750 1320 Output Total 2200 1500 1500 Balance -520 250 -180 Result Diagrams: 05/05/19 06:43 05/05/19 06:43 Radiology Reviewed by me: Yes (CT brain reviewed) EKG Reviewed by me: Yes (nsr) Phys Exam - Physical Examination Constitutional: NAD HEENT: PERRLA, moist MMs, sclera anicteric Neck: no JVD, supple Respiratory: no wheezing, no rhonchi bilateral fine rales Cardiovascular: RRR, no significant murmur, no rub Gastrointestinal: soft, non-tender, no distention, positive bowel sounds Musculoskeletal: no edema, pulses present Neurological: non-focal, moves all 4 limbs Lymphatic: no nodes Psychiatric: normal affect Skin: no rash, normal turgor Dx/Plan (1) Acute on chronic respiratory failure with hypoxemia Code(s): J96.21 - ACUTE AND CHRONIC RESPIRATORY FAILURE WITH HYPOXIA Status: Acute Comment: slowly improving (2) Abnormal LFTs Code(s): R94.5 - ABNORMAL RESULTS OF LIVER FUNCTION STUDIES Status: Acute Comment: Imroving, suspecting from hypoxia related liver injury (3) Lactic acidosis Code(s): E87.2 - ACIDOSIS Status: Resolved Comment: due to hypoxia (4) Type [address] elevation Code(s): I21.A1 - MYOCARDIAL INFARCTION TYPE 2 Status: Acute Comment: due to hypoxia (5) Anxiety and depression Code(s): F41.9 - ANXIETY DISORDER, UNSPECIFIED; F32.9 - MAJOR DEPRESSIVE DISORDER, SINGLE EPISODE, UNSPECIFIED Status: Chronic (6) Dyslipidemia Code(s): E78.5 - HYPERLIPIDEMIA, UNSPECIFIED Status: Chronic (7) GERD (gastroesophageal reflux disease) Code(s): K21.9 - GASTRO-ESOPHAGEAL REFLUX DISEASE WITHOUT ESOPHAGITIS Status: Chronic (8) Hypothyroidism Code(s): E03.9 - HYPOTHYROIDISM, UNSPECIFIED Status: Chronic (9) Protein-calorie malnutrition, moderate Code(s): E44.0 - MODERATE PROTEIN-CALORIE MALNUTRITION Status: Chronic (10) Pulmonary fibrosis Code(s): J84.10 - PULMONARY FIBROSIS, UNSPECIFIED Status: Chronic (11) Decubitus ulcer of coccygeal region, unstageable Code(s): L89.150 - PRESSURE ULCER OF SACRAL REGION, UNSTAGEABLE Status: Acute Comment: present on admission (12) Physical deconditioning Code(s): R53.81 - OTHER MALAISE Status: Chronic (13) PAF (paroxysmal atrial fibrillation) Code(s): I48.0 - PAROXYSMAL ATRIAL FIBRILLATION Status: Chronic - Plan cont current plan of care, plan discussed w/ family, PT/OT, respiratory therapy * her CT brain is normal * she needs PT/OT and eventual placement to SNU * today solumderol changed to oral prednisone * overall stable and improving with current treatment * medication reviewed as below * symptomatic treatment. Review of Systems - Review of Systems Constitutional: weakness, malaise. negative: fever, chills, sweats, other Respiratory: Shortness of Breath, SOB with Excertion. negative: Cough, Dry, Hemoptysis, Pleuritic Pain, Sputum, Wheezing Cardiovascular: negative: chest pain, palpitations, orthopnea, paroxysmal nocturnal dyspnea, edema, light headedness, other Gastrointestinal: negative: Nausea, Vomiting, Abdominal Pain, Diarrhea, Constipation, Melena, Hematochezia, Other Genitourinary: negative: Dysuria, Frequency, Incontinence, Hematuria, Retention , Other Musculoskeletal: negative: Neck Pain, Shoulder Pain, Arm Pain, Back Pain, Hand Pain, Leg Pain, Foot Pain, Other - Medications/Allergies Allergies/Adverse Reactions: Allergies Allergy/AdvReac Type Severity Reaction Status Date / Time acetaminophen [From Percocet] Allergy Verified 04/26/19 22:22 azithromycin [From Zithromax] Allergy Verified 02/14/19 17:48 iodine Allergy Verified 02/14/19 17:48 latex Allergy Rash Verified 02/14/19 17:48 oxycodone Allergy Verified 04/26/19 22:22 tramadol Allergy Verified 04/26/19 22:22 Medications: Current Medications Amoxicillin/Clavulanate Potassium (Augmentin) 875 mg PO Q12HR [facility] Last Admin: 05/07/19 21:42 Dose: 875 mg Apixaban (Eliquis) 5 mg PO BID [facility] Last Admin: 05/07/19 21:42 Dose: 5 mg Bisacodyl (Dulcolax) 10 mg PO DAILYPRN PRN PRN Reason: Constipation Calcium Carbonate (Tums) 500 mg PO BIDPRN PRN PRN Reason: . Last Admin: 05/05/19 20:21 Dose: 500 mg Clotrimazole (Lotrimin 1% Cream) 0 gm TOP BID [facility] Last Admin: 05/07/19 21:41 Dose: 1 applic Coenzyme Q10 (Coenzyme Q10) 100 mg PO DAILY [facility] Last Admin: 05/07/19 08:58 Dose: 100 mg Digoxin (Lanoxin) 0.125 mg PO DAILY [facility] Last Admin: 05/07/19 08:59 Dose: 0.125 mg Furosemide (Lasix) 20 mg PO QAM [facility] Last Admin: 05/07/19 09:00 Dose: 20 mg Gabapentin (Neurontin) 300 mg PO TID [facility] Last Admin: 05/07/19 21:41 Dose: 300 mg Levothyroxine Sodium (Synthroid) 50 mcg PO 0600 [facility] Last Admin: 05/06/19 06:38 Dose: 50 mcg Lorazepam (Ativan) 1 mg PO Q4H PRN PRN Reason: Anxiety/Agitation Last Admin: 05/06/19 22:20 Dose: 1 mg Metoprolol Succinate (Toprol Xl) 50 mg PO DAILY [facility] Last Admin: 05/07/19 09:00 Dose: 50 mg Mometasone Furoate/Formoterol Fumar (Dulera 200 Mcg/5 Mcg Inhaler) 2 puff INH BID-RT [facility] Last Admin: 05/07/19 18:22 Dose: 2 puff Montelukast Sodium (Singulair) 10 mg PO HS [facility] Last Admin: 05/07/19 21:42 Dose: 10 mg Pantoprazole Sodium (Protonix) 40 mg PO DAILY [facility] Last Admin: 05/07/19 09:00 Dose: 40 mg Prednisone (Prednisone) 40 mg PO QA-[facility] Saccharomyces Boulardii (Florastor) 250 mg PO BID [facility] Last Admin: 05/07/19 21:42 Dose: 250 mg Simethicone (Mylicon Chewable) 80 mg PO PCHS PRN PRN Reason: Gas Pain Simvastatin (Zocor) 5 mg PO HS [facility] Last Admin: 05/07/19 21:42 Dose: 5 mg Sodium Chloride (Flush - Normal Saline) 10 ml IVF Q12HR [facility] Last Admin: 05/07/19 21:42 Dose: Not Given Sodium Chloride (Flush - Normal Saline) 10 ml IVF PRN PRN PRN Reason: Saline Flush Last Admin: 05/03/19 13:15 Dose: 10 ml Sodium Chloride (Sodium Chloride 3%) 15 ml NEB BID-RT [facility] Last Admin: 05/07/19 18:21 Dose: 15 ml Sterile Water (Bacteriostatic Water) 1 ml FS PRN PRN PRN Reason: RECONSTITUTION
[2019-05-08] MEDS: Levothyroxine Sodium 50 MCG TAB PO SCH (06:12)
[2019-05-08] MEDS: Sodium Chloride 3% (15 ML) NEB NEB SCH (07:26)
[2019-05-08] MEDS: Mometasone/Formoterol 120 PUFF INHALER INH SCH (07:27)
[2019-05-08] MEDS ORDERED: predniSONE 20 MG TAB PO SCH (08:00)
[2019-05-08] MEDS: Digoxin 0.125 MG TAB PO SCH (10:17)
[2019-05-08] MEDS: Ubidecarenone 50 MG CAP PO SCH (10:18)
[2019-05-08] MEDS: Apixaban 5 MG TAB PO SCH (10:18)
[2019-05-08] MEDS: Saccharomyces boulardii 250 MG CAP PO SCH (10:18)
[2019-05-08] MEDS: Furosemide 20 MG TAB PO SCH (10:19)
[2019-05-08] MEDS: Clotrimazole 1 % Cream 30 GM TUBE TOP SCH (10:19)
[2019-05-08] MEDS: Amoxicillin/Potassium Clav 875 MG TAB PO SCH (10:20)
[2019-05-08 10:29] VITALS: TEMP 97.6
--- NOTE | 2019-05-08 11:07 | DIS ---
DATE OF ADMISSION: 04/26/2019 DATE OF DISCHARGE: 05/08/2019 PRIMARY CARE PHYSICIAN: Dr. Erika Estrada. DISCHARGE DISPOSITION: [facility]. PRIMARY DISCHARGE DIAGNOSES: 1. Acute on chronic respiratory failure with hypoxia. 2. Type [address] elevation due to hypoxia. 3. Abnormal LFT due to hypoxia. 4. Lactic acidosis due to hypoxia. 5. Interstitial lung disease exacerbation. SECONDARY DISCHARGE DIAGNOSES: 1. Physical deconditioning. 2. Paroxysmal atrial fibrillation. 3. Hypothyroidism. 4. Gastroesophageal reflux disease. 5. Moderate protein-calorie malnutrition. 6. Dyslipidemia. 7. Anxiety and depression. 8. Chronic respiratory failure, on home oxygen therapy. 9. Decubitus ulcer on coccygeal region, present on admission. 10. Interstitial lung disease with pulmonary fibrosis. PRIMARY PROCEDURE/OPERATION: None. RADIOLOGICAL INVESTIGATION: Chest x-ray consistent with pulmonary fibrosis and large hiatal hernia. Echocardiography showed EF 65% to 70%, diastolic dysfunction, severely enlarged right ventricle, moderate tricuspid regurgitation, diastolic dysfunction. CT brain was negative for any acute intracranial process. SIGNIFICANT LABORATORY DATA: WBC 16.0, hemoglobin 10.3, and platelets are 289. Sodium 136, potassium 4.6, BUN 34, creatinine 0.54, calcium 9.5, AST 43, ALT 96, alkaline phosphatase 85, albumin 2.9, and troponin 2.75. Urinalysis, unremarkable. Blood culture, negative. DISCHARGE MEDICATION: 1. Tylenol with codeine 1 tablet q.6 hourly p.r.n. 2. Eliquis 5 mg p.o. b.i.d. 3. Vitamin C 500 mg p.o. daily. 4. Ocuvite one capsule daily. 5. Calcium with vitamin D 1 tablet p.o. daily. 6. Digoxin 125 mcg p.o. daily. 7. Gabapentin 300 mg p.o. t.i.d. 8. Atrovent nasal spray as directed. 9. Ferrous sulfate one-half tablet daily. 10. Probiotic one capsule p.o. b.i.d. 11. Synthroid 50 mcg p.o. daily. 12. Toprol-XL 50 mg daily. 13. Singulair 10 mg p.o. at bedtime. 14. Ofev 150 mg p.o. b.i.d. 15. Protonix 40 mg p.o. daily. 16. Livalo 0.5 mg p.o. at bedtime. 17. Florastor 250 mg p.o. b.i.d. 18. Restoril 15 mg p.o. nightly. 19. Coenzyme Q10 100 mg p.o. daily. 20. Lasix 20 mg p.o. daily. 21. Dulera 2 puffs inhalation b.i.d. 22. Augmentin 875 mg p.o. b.i.d. as per Dr. Cueto. 23. Prednisone 40 mg p.o. daily, taper as per Dr. Cueto. CONTRAINDICATION: None. CODE STATUS: DNR. INPATIENT SALES SUPPORT SPECIALIST: Cardiology group was consulted for elevated troponin. Pulmonary group, Dr. Cueto was following for respiratory failure. TEST RESULTS PENDING ON DISCHARGE: None. ALLERGIES: ACETAMINOPHEN, AZITHROMYCIN, IODINE, LATEX, OXYCODONE, AND TRAMADOL. DISCHARGE PLAN: Posthospital, the patient is planned for discharge to custodial home. Subsequently, the patient will follow up with paper reel operator, primary care physician, door slinger. HOSPITAL COURSE: A 73-year-old female, who has underlying history of interstitial lung disease with pulmonary fibrosis. She has chronic respiratory failure and she requires chronic home oxygen therapy. She has underlying chronic physical deconditioning. At this time, the patient was admitted by Dr. Hart on April 27, 2019. The patient was having hypoxia. She was having respiratory distress. She was having acute on chronic respiratory failure with hypoxia. She required BiPAP. She was admitted to [facility]. She had code status DNR while in the hospital. This patient was requiring BiPAP and as well as high-flow oxygen for several days, during that period, she was treated with high dose of steroid with Solu-Medrol, DuoNeb therapy, Dulera. The patient's home medication was also continued while in the hospital. She was also given empiric antibiotic therapy while in hospital. Subsequently, empiric antibiotic therapy, IV changed to Augmentin. For last couple of days, the patient is getting oral prednisone. With time, the patient's oxygen requirement improved and she started feeling better. She is currently maintaining saturation with nasal cannula. Initially when she was admitted, at that time, she was tachycardic and tachypneic, but her heart rate was also under controlled with the treatment. At this point, the patient is pretty much up to her baseline level. She has significant physical deconditioning and that is why the patient required custodial home placement. The patient and family member agreed with custodial home placement. With help of comp field case manager, we arranged custodial home placement. Paperwork for discharge done and discharge medication reconciliation done. Overall, the patient is medically stable for discharge if Dr. Cueto is okay. While in hospital, the patient had abnormal troponin and that is why Cardiology was following, but they did not recommend any new things and abnormal LFT and abnormal troponin were attributed to be due to hypoxia and from demand ischemia. PHYSICAL EXAMINATION: VITAL SIGNS: I have seen and examined the patient at bedside today. Plan of care discussed with the patient and her son at bedside. Currently, temperature 97.6, pulse 96, respiratory rate 18, saturation 98% on 3 L nasal cannula, weight 116 pounds. GENERAL: The patient is currently alert, awake, chronically ill, in no obvious acute distress. HEENT: Head, normocephalic and atraumatic. LUNGS: Bilateral fine rales noted. No wheeze. No rhonchi. No accessory muscles of respiration in use. CARDIAC: S1 and S2 appears regular. No murmur. No tachycardia. No gallop. No rub. ABDOMEN: Soft. Bowel sounds present. Nontender. Nondistended. No organomegaly. No mass. No suprapubic tenderness. BACK: Examination unremarkable. No CVA tenderness. EXTREMITIES: Upper extremity; passive movement of all joints are normal. Lower extremity; no edema. Good distal pulsation. NEUROLOGIC: Nonfocal examination. While in hospital, the patient had couple of times episode with confusion, which was one time attributed to be due to combined medication with Restoril and Ambien and second time, the patient had episode of fall and that is why CT brain was done, which was unremarkable. Overall, the patient is medically stable for discharge and she is continuously high risk for recurrent admission because of her terminal nature of pulmonary fibrosis. While in hospital, Palliative Care Team also saw this patient. Total time spent on discharge day 31 minutes. Job ID: [id number] [facility]
[2019-05-08] MEDS: Gabapentin 300 MG CAP PO SCH (11:57)
[2019-05-08 13:53] VITALS: BMI 19.3
--- NOTE | 2019-05-08 15:13 | PRG ---
DATE OF SERVICE: 05/08/2019 SUBJECTIVE: Ms. Tovar is stable overnight. She has been approved to go to [place]. OBJECTIVE: VITAL SIGNS: Blood pressure 107/57, heart rate 77, and respiratory rates in the low 20s. GENERAL: She is on nasal cannula. LUNGS: Clear anteriorly, crackles posteriorly. HEART: Regular rhythm. ABDOMEN: Soft and nontender. She has had daily bowel movement. EXTREMITIES: Without clubbing, cyanosis or edema. LABORATORY DATA: . IMPRESSION: Idiopathic pulmonary fibrosis with exacerbation. PLAN: To skilled and then home. She will follow up with me after she gets home. Prednisone can be tapered to 30 mg in 5 days and then 20 mg until she sees me in the office. She will remain . Job ID: [id number]
== END 2019-05-08 15:11 | DRG 871 ==
LOC: ERS 19:52 → IMCU/EMU 22:12
PROVIDERS: ADMIT Family Medicine; ATTEND Family Medicine
PROC: 5A09557 Assistance with Respiratory Ventilation, Greater than 96 Consecutive Hours, Continuous Positive Airway Pressure (ICD-10-PCS; principal; 2019-04-26)
DX: A41.9 Sepsis, unspecified organism (principal); J96.21 Acute and chronic respiratory failure with hypoxia; I21.A1 Myocardial infarction type 2; N17.9 Acute kidney failure, unspecified; Z66 Do not resuscitate; Z51.5 Encounter for palliative care; E87.2 Acidosis; E44.0 Moderate protein-calorie malnutrition; J47.1 Bronchiectasis with (acute) exacerbation; Z68.1 Body mass index [BMI] 19.9 or less, adult; I10 Essential (primary) hypertension; K21.9 Gastro-esophageal reflux disease without esophagitis; E03.9 Hypothyroidism, unspecified; M19.90 Unspecified osteoarthritis, unspecified site; J84.112 Idiopathic pulmonary fibrosis; F41.9 Anxiety disorder, unspecified; F32.9 Major depressive disorder, single episode, unspecified; R94.5 Abnormal results of liver function studies; E78.5 Hyperlipidemia, unspecified; E11.9 Type 2 diabetes mellitus without complications; L89.150 Pressure ulcer of sacral region, unstageable; I27.20 Pulmonary hypertension, unspecified; E86.9 Volume depletion, unspecified; R53.81 Other malaise; I48.0 Paroxysmal atrial fibrillation; R41.0 Disorientation, unspecified; T42.4X5A Adverse effect of benzodiazepines, initial encounter; T42.6X5A Adverse effect of other antiepileptic and sedative-hypnotic drugs, initial encounter; S00.83XA Contusion of other part of head, initial encounter; W19.XXXA Unspecified fall, initial encounter; Z90.710 Acquired absence of both cervix and uterus; Z90.49 Acquired absence of other specified parts of digestive tract; Z79.899 Other long term (current) drug therapy; Z88.1 Allergy status to other antibiotic agents; Z88.8 Allergy status to other drugs, medicaments and biological substances; Z91.040 Latex allergy status; Z88.0 Allergy status to penicillin; Z89.431 Acquired absence of right foot
CPT/HCPCS: 36415; 36416; 51701; 70450; 71045; 80048; 80053; 80202; 81003; 82550; 82553; 83605; 83880; 84484; 85007; 85025; 85027; 87040; 93306; 94640; 94660; 94664; 94668; 96374; A4353; J1940; J2543; J2920; J3370; J3490; J7050; J7512

== ENCOUNTER 2019-05-17 08:21 | Inpatient (IN) | payer MEDICARE, BC ==
--- NOTE | 2019-05-17 09:11 | RAD ---
XR Chest 1 View Portable History: Dyspnea Comparison: Radiograph April 26, 2019 Findings: Heart size is enlarged. Chronic pulmonary fibrosis. Large sliding hiatal hernia. No pneumot horax. Pulmonary arteries are dilated. Impression: Similar examination of the chest with pulmonary fibrosis, cardiomegaly, and pulmonary art erial hypertension.
[2019-05-17 09:27] LABS: Digoxin 0.49 ng/mL (0.8-2.0)
[2019-05-17 09:29] LABS: #Basophils 0.1 thou/uL (0.0-0.2); #Lymphocytes 1.7 thou/uL (1.20-3.40); #Monocytes 0.9 thou/uL (0.11-0.59); #Neutrophils 12.4 thou/uL (1.40-6.50); %Basophils 0.4 % (0.0-1.0); %Eosinophils 0.2 % (0.0-10.0); %Lymphocytes 11.1 % (21.0-51.0); %Monocytes 5.8 % (0.0-10.0); %Neutrophils 82.5 % (42.0-75.0); Hemoglobin 9.7 g/dL (12.0-16.0); MDiff Complete? YES; Mean Corpuscular Hemoglobin 23.5 pg (27.0-31.0); Mean Corpuscular Volume 73.4 fL (78.0-98.0); Mean Platelet Volume 6.6 fL (7.4-10.4); Microcytosis SLIGHT = 6-15 cells (100X) (0-5/hpf); Platelet Count 170 thou/uL (130-400); RBC Distribution Width 20.4 % (11.5-14.5); Red Blood Cell (RBC) Count 4.13 mill/uL (4.20-5.40); White Blood Cell (WBC) Count 15.1 thou/uL (4.8-10.8)
[2019-05-17 09:41] LABS: ALT (SGPT) 29 U/L (8-55); AST (SGOT) 58 U/L (5-34); Albumin 3.5 g/dL (3.4-4.8); Alkaline Phosphatase 87 U/L (40-150); Anion Gap 20 mmol/L (10-20); BUN (Urea Nitrogen) 26 mg/dL (9.8-20.1); Bilirubin, Total 0.6 mg/dL (0.2-1.2); Calc. Creatinine Clearance 0 mL/min (70-130); Calcium 9.6 mg/dL (7.8-10.44); Carbon Dioxide 22 mmol/L (23-31); Chloride 99 mmol/L (98-107); Estimated GFR-MDRD 74; Glucose 125 mg/dL (83-110); Potassium 4.9 mmol/L (3.5-5.1); Protein, Total 6.5 g/dL (6.0-8.3); Sodium 136 mmol/L (136-145)
[2019-05-17] MEDS ORDERED: Piperacillin/Tazobactam 4.5 GM VIAL ONE (10:00)
[2019-05-17] MEDS ORDERED: Ibuprofen 200 MG TAB ONE (10:00)
[2019-05-17] MEDS ORDERED: Aspirin Chewable 81 MG TAB ONE (10:00)
[2019-05-17 10:05] LABS: CKMB 3.7 ng/mL (0-6.6)
--- NOTE | 2019-05-17 10:34 | CT ---
CT THORAX NONCONTRAST: DATE: 05/17/2019 HISTORY: 73-year-old female with dyspnea, fever, and hypoxemia. COMPARISON: 10/03/2016 FINDINGS: Interval worsening of severe interstitial lung disease: Severe subpleural air cysts, lower lung zone predominance, with honeycombing. Lung volumes are slightly lower now. New or worsening diffuse mild groundglass changes throughout both lungs. Approximately half of stomach herniated into mediastinum. No thoracic aortic aneurysm. Trachea and major bronchi are patent and clear. Traction bronchiectasis diffusely bilaterally. No consolidation, pneumothorax, or pleural effusion. IMPRESSION: 1) interval worsening of now severe pulmonary fibrosis. The pattern is consistent with usual intersti tial pneumonia/idiopathic pulmonary fibrosis. 2) large hiatal hernia
[2019-05-17 10:41] LABS: Bacteria/HPF 1+ HPF (None Seen); Bilirubin Negative (Negative); Blood, Urine Negative (Negative); Clarity Clear (Clear); Glucose, Urine (Dipstick) Normal (Negative); Leukocyte 25 Leu/uL (Negative); Nitrite Negative (Negative); Protein, Urine (Dipstick) 20 mg/dL (Neg-Trace); RBC/HPF 0-3 HPF (0-3); Squamous Epithelial 0-3 HPF (0-3); Urobilinogen Normal mg/dL (Less than 2)
[2019-05-17] MEDS ORDERED: Senokot S 8.6-50 MG TAB PO PRN (12:26)
[2019-05-17] MEDS ORDERED: Guaifenesin DM 100-10/5 ML UDCUP PO PRN (12:26)
[2019-05-17 12:49] LABS: Lactic Acid 2.4 mmol/L (0.5-2.2)
[2019-05-17 12:58] LABS: Troponin I 0.866 ng/mL (< 0.028)
--- NOTE | 2019-05-17 14:16 | HP ---
REASON FOR ADMISSION: Fever of 101 and low blood pressures with UTI, likely fungal UTI. HISTORY OF PRESENTING ILLNESS: The patient apparently was found to have had temperature of 101 at [facility]. Her blood pressure was low apparently at the alf and was transferred here. Ms. Tovar does mention that her nasal cannula was disconnected overnight and her saturations dropped. They tried to reconnect and increase the oxygen levels, but despite which her saturations remained around 88%. She is usually 90% per the patient. On arrival in the ER here, the patient had a temperature of 98 degrees and blood pressure 106/62. Has no complaints of urinary frequency or urgency. The patient has chronic cough, but no altered expectoration. She has been participating with physical therapy at the [facility] and is able to ambulate by herself in the room. She has been at the facility for last 7 days now after being discharged from here. She has a followup to see Dr. Cueto on the of this month and Dr. Gibson as well. She has been advised to continue prednisone at 20 mg daily until she sees Nory. PAST MEDICAL AND SURGICAL HISTORY: Likely end-stage pulmonary fibrosis, chronic AFib, hypothyroidism, nonalcoholic fatty liver disease, hiatal hernia, osteoarthritis, GERD, right rotator cuff repair, appendectomy, hysterectomy, carpal tunnel release surgery, prior history of wedge biopsy of lung, right foot transmetatarsal amputation for circulatory issues and ulcerations. PERSONAL HISTORY: Does not abuse alcohol or drugs. No history of smoking. FAMILY HISTORY: Mother of cerebral hemorrhage at the age of 50 years. Father at the age of 77 years, he has had history of congestive heart failure. Brother of prostate cancer. ALLERGIES: ALLERGIC TO TYLENOL, BUT HAS BEEN TAKING TYLENOL WITH CODEINE IN THE PAST, AZITHROMYCIN, IODINE, LATEX, OXYCODONE, AND ULTRAM. CURRENT MEDICATIONS: 1. Prednisone 20 mg daily. 2. Eliquis 5 mg twice daily. 3. Tylenol with Codeine No. 3 p.r.n. 4. Vitamin C 500 mg p.o. daily. 5. Calcium with vitamin D one tablet daily. 6. Digoxin 0.125 mg p.o. daily. 7. Gabapentin 300 mg p.o. three times daily. 8. DuoNeb q.6 hourly. 9. Probiotic one capsule twice daily. 10. Synthroid 50 mcg daily. 11. Toprol-XL 50 mg daily. 12. Singulair 10 mg p.o. q.h.s. 13. Nintedanib 150 mg twice daily for pulmonary fibrosis. 14. Protonix 40 mg daily. 15. Pitavastatin 0.5 mg p.o. q.h.s. 16. Restoril 15 mg p.o. q.h.s. 17. CoQ10 of 100 mg p.o. daily. 18. Lasix 20 mg p.o. q.a.m. 19. Dulera inhaler 2 puffs twice daily. CODE STATUS: Do not attempt to resuscitate. This was discussed with the patient in ER room 3 and confirmed by son who is here at bedside who is also power of ip technology transactions attorney. REVIEW OF SYSTEMS: CONSTITUTIONAL: Negative for weight loss or gain, ability to conduct usual activities. SKIN: Negative for rash, itching. EYES: Negative for double vision, pain. ENT/MOUTH: Negative for nose bleeding, neck stiffness, pain, tenderness. CARDIOVASCULAR: Negative for palpitations, dyspnea on exertion, orthopnea. RESPIRATORY: Negative for shortness of breath, wheezing, cough, hemoptysis, fever or night sweats. GASTROINTESTINAL: Negative for poor appetite, abdominal pain, heartburn, nausea, vomiting, constipation, or diarrhea. GENITOURINARY: Negative for urgency, frequency, dysuria, nocturia. MUSCULOSKELETAL: Negative for pain, swelling. NEUROLOGIC/PSYCHIATRIC: Negative for anxiety, depression. ALLERGY/IMMUNOLOGIC: Negative for skin rash, bleeding tendency. PHYSICAL EXAMINATION: GENERAL: The patient is a 73-year-old female, who is currently not in any acute distress. VITAL SIGNS: Blood pressure 106/62, pulse 116 per minute, respiratory rate 22 per minute, temperature 98.3 degrees Fahrenheit, saturating 96% on 4 L nasal cannula. NECK: Supple. No elevated JVD. HEENT: Eyes; extraocular muscles intact. Pupils reacting to light. Oral cavity, mucous membranes are dry. No exudates or congestion. CARDIOVASCULAR SYSTEM: S1 and S2 heard. Tachycardic, regular rhythm. RESPIRATORY SYSTEM: Air entry 1+ bilateral. Scattered rales plus bilateral. ABDOMEN: Soft. Bowel sounds heard. No tenderness, rigidity, or guarding. EXTREMITIES: No peripheral edema or calf tenderness. Right forefoot transmetatarsal amputation site is clean. Has a healing ulcer over the left lateral aspect of the 5th metatarsal, which is almost healed. Peripheral pulses are 1+ bilateral. No ischemic ulcerations or gangrene. CENTRAL NERVOUS SYSTEM: No gross focal motor deficits noted. The patient is alert, awake, oriented, well. PSYCHIATRIC SYSTEM: The patient's mood is euthymic. No hallucinations or delusions. LABORATORY DATA: EKG done shows sinus tach at 103 beats per minute. There is poor R-wave progression, low voltage EKG, T inversion seen in lead II, III, aVF. White count of 15, H and H of 9.7 and 30, platelet count 170, MCV 73, with 82% neutrophils. Electrolytes stable. Serum bicarb 22, BUN 26, creatinine 0.7, serum glucose 125. Lactic acid 3.8. AST 58, ALT 29. Troponin I is indeterminate, peaking up to 0.86. CK-MB 3.7. Albumin is 3.5. UA shows 1+ bacteria. Digoxin level, 0.49. CT chest done shows chronic findings of severe pulmonary fibrosis with possible worsening, large hiatal hernia seen. CLINICAL IMPRESSION AND PLAN: The patient will be admitted to telemetry for possible sepsis, urinary tract infection, possible worsening of her pulmonary fibrosis. The patient also had an episode where her nasal cannula was disconnected overnight, which led to low saturations. We will place her on Levaquin 500 mg IV daily. Blood and urine cultures have been obtained in the ER. We will continue her Eliquis, digoxin, Lasix, Neurontin, DuoNeb, Floranex, Synthroid, Toprol-XL, Dulera inhaler, Singulair, nintedanib, Protonix, pitavastatin, prednisone at 20 mg daily, and CoQ10. We will consult Dr. Cueto, her director of physician practices during her stay here. She in fact is recovering well from her recent deconditioning and we will obtain PT/OT evaluation as well. We will follow up on the cultures. We will continue to closely monitor her on telemetry. Currently, she is in sinus rhythm, although she has history of chronic atrial fibrillation. Job ID: [id number]
[2019-05-17 15:56] LABS: Critical Call Chem Troponin I RESULT DECREASING
[2019-05-17] MEDS: Gabapentin 100 MG CAP PO SCH ×2 (17:31→21:08)
[2019-05-17 18:04] VITALS: BMI 19.5
[2019-05-17] MEDS: Mometasone/Formoterol 120 PUFF INHALER INH SCH (18:19)
[2019-05-17] MEDS ORDERED: Montelukast Sodium 10 mg Tablet PO SCH (21:00)
[2019-05-17] MEDS ORDERED: Ipratropium Bromide 0.06% Nasal Inhaler 15ml EA NARE SCH (21:00)
[2019-05-17] MEDS ORDERED: Temazepam 15 MG CAP PO SCH (21:00)
[2019-05-17] MEDS ORDERED: PITAVASTATIN CALCIUM PO SCH (21:00)
[2019-05-17] MEDS ORDERED: NINTEDANIB ESYLATE 150 MG PO SCH (21:00)
[2019-05-17] MEDS: Apixaban 5 MG TAB PO SCH (21:07)
[2019-05-17] MEDS: Famotidine 20 MG TAB PO SCH (21:07)
[2019-05-17] MEDS: Saccharomyces boulardii 250 MG CAP PO SCH (21:08)
[2019-05-17] MEDS: Lactinex Tablet PO SCH (21:08)
[2019-05-18 05:54] LABS: #Eosinphils 0.2 thou/uL (0.0-0.7); #Lymphocytes 1.1 thou/uL (1.20-3.40); #Monocytes 0.4 thou/uL (0.11-0.59); #Neutrophils 8.7 thou/uL (1.40-6.50); %Basophils 0.2 % (0.0-1.0); %Eosinophils 1.7 % (0.0-10.0); %Lymphocytes 10.8 % (21.0-51.0); %Neutrophils 83.3 % (42.0-75.0); Hemoglobin 8.2 g/dL (12.0-16.0); Mean Corpuscular HGB CONC 30.9 g/dL (32.0-36.0); Mean Corpuscular Hemoglobin 23.4 pg (27.0-31.0); Mean Corpuscular Volume 75.8 fL (78.0-98.0); Mean Platelet Volume 10.2 fL (7.4-10.4); Platelet Count 146 thou/uL (130-400); RBC Distribution Width 20.3 % (11.5-14.5); Red Blood Cell (RBC) Count 3.52 mill/uL (4.20-5.40); White Blood Cell (WBC) Count 10.5 thou/uL (4.8-10.8)
[2019-05-18] MEDS ORDERED: Levothyroxine Sodium 50 MCG TAB PO SCH (06:00)
[2019-05-18 06:05] LABS: Anion Gap 11 mmol/L (10-20); BUN (Urea Nitrogen) 10 mg/dL (9.8-20.1); Calc. Creatinine Clearance 75 mL/min (70-130); Calcium 8.9 mg/dL (7.8-10.44); Carbon Dioxide 23 mmol/L (23-31); Chloride 110 mmol/L (98-107); Estimated GFR-MDRD Greater than 90; Glucose 94 mg/dL (83-110); Potassium 3.6 mmol/L (3.5-5.1); Sodium 140 mmol/L (136-145)
[2019-05-18] MEDS: Mometasone/Formoterol 120 PUFF INHALER INH SCH (07:43)
[2019-05-18] MEDS ORDERED: predniSONE 20 MG TAB PO SCH (08:00)
[2019-05-18] MEDS ORDERED: Digoxin 0.125 MG TAB PO SCH (09:00)
[2019-05-18] MEDS ORDERED: Ubidecarenone 50 MG CAP PO SCH (09:00)
[2019-05-18] MEDS ORDERED: Ascorbic Acid 500 mg Chewable Tablet PO SCH (09:00)
[2019-05-18] MEDS ORDERED: Furosemide 20 MG TAB PO SCH (09:00)
[2019-05-18] MEDS ORDERED: Pantoprazole 40 MG GRANULES PACKET PO SCH (09:00)
[2019-05-18] MEDS ORDERED: Fluconazole 100 MG TAB PO SCH (09:00)
[2019-05-18] MEDS: Gabapentin 100 MG CAP PO SCH (09:16)
[2019-05-18] MEDS: Saccharomyces boulardii 250 MG CAP PO SCH (09:17)
[2019-05-18] MEDS: Apixaban 5 MG TAB PO SCH (09:17)
[2019-05-18] MEDS: Lactinex Tablet PO SCH (09:17)
[2019-05-18] MEDS: Famotidine 20 MG TAB PO SCH (09:18)
[2019-05-18 09:29] LABS: Base Excess-Venous 4.3 mmol/L (-2.0 to 3.0); Bicarbonate (HCO3v) 27.6 mmol/L (22.0-28.0); CO2 Tension (PvCO2) 35.7 mmHg (40.0-50.0); Calcium, Ionized 1.12 mmol/L (See Comments:); Chloride 99 mmol/L (98-107); Hemoglobin - Calc 11.2 g/dL (12.0-16.0); Potassium 4.9 mmol/L (3.5-5.1); Sodium 136 mmol/L (138-145); T. Carbon Dioxide 28.7 mmol/L (22.0-28.0); vO2 Saturation-calc 83.1 % (60.0-85.0)
--- NOTE | 2019-05-18 11:57 | PDOC.PN ---
- Subjective Encounter Start Date: 05/18/19 Encounter Start Time: 11:00 Subjective: saw her around 8.45am, had mild sob, she had gotten neb 15min back -: son at bedside - Objective Resuscitation Status - Order Detail: 05/17/19 12:18 Resuscitation Status Routine Resuscitation Status: DNAR: NO Resuscitation Discussed with: d/w patient at bedside MAR Reviewed: Yes Vital Signs & Weight: Vital Signs (12 hours) Temp Pulse Resp BP Pulse Ox 05/18/19 09:17 114 H 05/18/19 07:43 114 H 24 H 05/18/19 07:34 114 H 24 H 05/18/19 04:00 98.4 F 91 20 102/57 L 95 05/18/19 00:00 98.0 F 98 101/55 L 96 Weight Weight 114 lb 2.88 oz I&O: 05/17/19 05/18/19 05/19/19 06:59 06:59 06:59 Intake Total 540 Balance 540 Result Diagrams: 05/18/19 05:24 05/18/19 05:24 Additional Labs: Accuchecks 05/18/19 10:34 POC Glucose 173 H Phys Exam - Physical Examination HEENT: PERRLA, sclera anicteric Neck: no JVD, supple rales++ Cardiovascular: no significant murmur, irregular Gastrointestinal: soft, positive bowel sounds Musculoskeletal: no edema, pulses present Neurological: non-focal, moves all 4 limbs Psychiatric: A&O x 3 Dx/Plan (1) Pulmonary fibrosis Code(s): J84.10 - PULMONARY FIBROSIS, UNSPECIFIED Status: Chronic Comment: with flare up (2) Acute on chronic respiratory failure with hypoxemia Code(s): J96.21 - ACUTE AND CHRONIC RESPIRATORY FAILURE WITH HYPOXIA Status: Acute (3) UTI (urinary tract infection) Status: Acute Qualifiers: Urinary tract infection type: acute cystitis Hematuria presence: without hematuria Qualified Code(s): N30.00 - Acute cystitis without hematuria (4) Anxiety and depression Code(s): F41.9 - ANXIETY DISORDER, UNSPECIFIED; F32.9 - MAJOR DEPRESSIVE DISORDER, SINGLE EPISODE, UNSPECIFIED Status: Chronic (5) Dyslipidemia Code(s): E78.5 - HYPERLIPIDEMIA, UNSPECIFIED Status: Chronic (6) GERD (gastroesophageal reflux disease) Code(s): K21.9 - GASTRO-ESOPHAGEAL REFLUX DISEASE WITHOUT ESOPHAGITIS Status: Chronic (7) Hypothyroidism Code(s): E03.9 - HYPOTHYROIDISM, UNSPECIFIED Status: Chronic (8) PAF (paroxysmal atrial fibrillation) Code(s): I48.0 - PAROXYSMAL ATRIAL FIBRILLATION Status: Chronic (9) Physical deconditioning Code(s): R53.81 - OTHER MALAISE Status: Chronic - Plan code blue was called around 10.20am, son wanted chest compressions to be do -: -ne but not intubation, ACLS protocol was initiated. Total of around 20 min -: of high quality chest compressions with multiple doses of epi, sodabicarb -: were given despite which she remained in asytole. Pt was pronounced -: -d at 10.43 am. Son was at bedside all through code blue episode. * . Body will be released per hospital protocol.
[2019-05-18 12:05] VITALS: BP 129/62; TEMP 97.7
--- NOTE | 2019-05-18 17:20 | DIS ---
DATE OF ADMISSION: 05/17/2019 DATE OF DISCHARGE: 05/18/2019 SUMMARY: DATE OF : 05/18/2019 at 10:43 a.m. PRIMARY CAUSES OF : 1. Qdiys-wj-lehirls respiratory failure secondary to severe pulmonary fibrosis, likely end-stage with exacerbation. 2. Urinary tract infection. SECONDARY CAUSE OF : 1. History of paroxysmal atrial fibrillation. 2. Dyslipidemia. 3. Recent deconditioning. PROCEDURES DONE DURING HOSPITALIZATION: CT chest, interval worsening of severe pulmonary fibrosis. Large hiatal hernia. Preliminary blood cultures x2, no growth. Urine culture grew gram-negative maureen. H and H of 8 and 26. Platelet count 146 , had a white count of 15 on the day of admission with 82% neutrophils. BRIEF COURSE DURING HOSPITALIZATION: The patient initially was sent over from [facility] for temperatures of 101 and low blood pressure. On arrival here, the patient's temperature had normalized. Her blood pressure was normal on arrival. Her initial workup revealed urinary tract infection with possible worsening of her severe pulmonary fibrosis with acute on chronic respiratory failure. She was admitted to Telemetry. Blood and urine cultures were obtained and the patient was placed on Levaquin along with steroids, nebulization, and her home medications were continued. The patient seemed to be responding well initially , but around 10:20 a.m., the patient went into respiratory failure. She also went into asystole. The patient had expressed she did not want to be resuscitated, but son at bedside wanted chest compressions to be done and this was initiated following ACLS protocol. 20 minutes into resuscitation, the patient's pulse never recovered. She continued to remain in asystole despite multiple epinephrines, sodium bicarbonate, and effective chest compressions. She was declared at 10:43 a.m. The son witnessed the entire ACLS code blue at bedside. Body will be released per hospital protocol to family. Job ID: [id number] MTDD
--- NOTE | 2019-05-20 00:53 | EKG ---
Test Reason : Blood Pressure : / mmHG Vent. Rate : 113 BPM Atrial Rate : 113 BPM P-R Int : 114 ms QRS Dur : 076 ms QT Int : 326 ms P-R-T Axes : 036 024 -10 degrees QTc Int : 447 ms Sinus tachycardia Possible Left atrial enlargement RSR' or QR pattern in V1 suggests right ventricular conduction delay Confirmed by EDUARDO SAMUELS ([id number]), desk editor VENU SINGLETON ([id number]) on 05/20/2019 12:52:54 AM Referred By: Confirmed By:EDUARDO SAMUELS
--- NOTE | 2019-05-20 00:53 | EKG ---
Test Reason : Blood Pressure : / mmHG Vent. Rate : 103 BPM Atrial Rate : 103 BPM P-R Int : 130 ms QRS Dur : 070 ms QT Int : 336 ms P-R-T Axes : 036 021 -31 degrees QTc Int : 440 ms Sinus tachycardia Possible Left atrial enlargement Confirmed by EDUARDO SAMUELS ([id number]), loan expeditor VENU SINGLETON ([id number]) on 05/20/2019 12:53:02 AM Referred By: ARVIND Confirmed By:EDUARDO SAMUELS
--- NOTE | 2019-05-21 05:37 | PQF ---
[employer] SYLVIA Licea SHOAIB RODNEY MD [id number] CLINICAL DOCUMENTATION CLARIFICATION FORM: POST DISCHARGE Addendum to original discharge summary date: ____ Late entry note date: __ DATE: 05/21/2019 ATTN: SHOAIB RODNEY Please exercise your independent, professional judgment in responding to the clarification form. Clinical indicators are provided on the bottom of this form for your review Please check appropriate box(s) to clarify if the following diagnosis has been ruled in or ruled out: Sepsis [ ] Ruled in diagnosis [ ] Continue to treat [ ] Resolved [ x ] Ruled out diagnosis [ ] Cannot rule out diagnosis [ ] Other diagnosis [ ] Unable to determine For continuity of documentation, please document condition throughout progress notes and discharge summary. Thank You. CLINICAL INDICATORS - SIGNS / SYMPTOMS / LABS Severe sepsis-ED record, 05/17-Shasta Lowe RN Fever of 101, Low blood pressures with UTI, likely fungal UTI-H&P, 05/17- SHOAIB RODNEY MD Possible sepsis, UTI, possible worsening of her pulmonary fibrosis-H&P, 05/17- SHOAIB RODNEY MD WBC: 15, Tachycardia, Lactic acid: 3.8-H&P, 05/17- SHOAIB RODNEY MD Acute on chronic respiratory failure sec to severe pulmonary fibrosis-DS, 05/17 - SHOAIB RODNEY MD Blood cx x2 No growth, Urine cx gram neg maureen-ARABELLA, 05/17- SHOAIB RODNEY MD RISK FACTORS Severe pulmonary fibrosis-DS, 05/17- SHOAIB RODNEY MD UTI-DS, 05/17- SHOAIB RODNEY MD TREATMENTS Vancomycin.IV, Zosyn.IV-JAN 18 She was placed on levoquin-DS, 05/17- SHOAIB RODNEY MD [employer] Win[employer] Viewer (This form is maintained as a part of the permanent medical record) 2014 [employer]. All Rights Reserved Meir Clemente [not provided] [not provided] MTDD
== END 2019-05-18 16:00 | disposition expired | DRG 196 ==
LOC: ERS 08:21 → ERHOLD 12:25 → 2NO 16:39
PROVIDERS: ADMIT Internal Medicine; ATTEND Internal Medicine
DX: J84.10 Pulmonary fibrosis, unspecified (principal); J96.21 Acute and chronic respiratory failure with hypoxia; N39.0 Urinary tract infection, site not specified; I48.91 Unspecified atrial fibrillation; E78.5 Hyperlipidemia, unspecified; G47.00 Insomnia, unspecified; D64.9 Anemia, unspecified; K21.9 Gastro-esophageal reflux disease without esophagitis; F41.9 Anxiety disorder, unspecified; I48.0 Paroxysmal atrial fibrillation; K44.9 Diaphragmatic hernia without obstruction or gangrene; E03.9 Hypothyroidism, unspecified; Z79.01 Long term (current) use of anticoagulants; Z90.710 Acquired absence of both cervix and uterus; I25.2 Old myocardial infarction; Z98.42 Cataract extraction status, left eye; Z98.41 Cataract extraction status, right eye; Z89.421 Acquired absence of other right toe(s); Z88.8 Allergy status to other drugs, medicaments and biological substances; Z88.1 Allergy status to other antibiotic agents; Z91.040 Latex allergy status
CPT/HCPCS: 36415; 36416; 71045; 71250; 80048; 80053; 80162; 81003; 81015; 82330; 82553; 82803; 83605; 84484; 85025; 87040; 87077; 87086; 87186; 93005; 94640; 96361; 96365; 96366; 96367; J1956; J2543; J3370; J7512; J7620